=== PATIENT | male | born 1955 | race Caucasian/White ===

== ENCOUNTER → 2016-12-01 | Outpatient (CLI) | payer OTHER ==
[~2016-12-01] MED LIST: ACET-1311 PO; ADVIN25050 INH; ALBUAER INH; ALBUPOW25 NEB; ASPI81TA28 PO; ATOR10TA82 PO; ENOX60IN SQ; FAMO1TAB47; FAMO20TA11 PO; FAMO40TA6 PO; LEVO100T7 PO; LISI-725 PO; LSN20 PO; METO25TA56 PO; OXGN; TPRSR/25 PO; VNTHFA/IN INH; WARF2.5T8 PO; [UNRECOGNIZED DRUG - REMARK]
--- NOTE | 2016-12-01 09:17 | DIAGNOSTIC IMAGING REPORT ---
CT OF THE CHEST WITHOUT IV CONTRAST CLINICAL HISTORY: Acid reflux. Head and neck cancer. COMPARISON STUDY: PET/CT October 09, [address] September 23, 2014. CT DOSE: 211.70 mGycm TECHNIQUE: Axial images of the chest were obtained without IV contrast. Images were reviewed in the axial, sagittal, and coronal planes. IV contrast was not administered for this examination. FINDINGS: No enlarged axillary, mediastinal or hilar lymph nodes are present. There are median sternotomy wires and prosthetic aortic and mitral valves. The heart is mildly enlarged. There is no pericardial effusion. No pneumothorax or pleural effusion is identified. Central airways are patent. Mild to moderate emphysema is noted. There are secretions within the trachea and left mainstem bronchus. Innumerable tree-in-bud nodules throughout the lungs have progressed since exam of September 23, 2014. There is a 1.8 cm nodular airspace opacity within the right upper lobe. There is no cavitation. The bony thorax and upper abdomen are unremarkable on this unenhanced exam. IMPRESSION: 1. Progression of innumerable tree-in-bud nodules with scattered airspace opacities since exam of September 23, 2014, including a 1.8 cm nodular focus within the right upper lobe. The findings favor an infectious process such as an atypical mycobacterial infection. A follow-up chest CT in 6 months is recommended to exclude the unlikely possibility of an underlying neoplasm. 2. No cavitation. 3. Mild to moderate emphysema. 4. Mild secretions within the trachea and left mainstem bronchus. Electronically signed by: Alfredo Lagunas M.D. 12/01/2016 9:15 AM Dictated Date/Time: 12/01/2016 9:00 AM
== END | disposition home or self-care (01) ==
LOC: C.CTS 08:24
PROVIDERS: ATTEND Physician Assistant
DX: K21.9 Gastro-esophageal reflux disease without esophagitis (principal); R91.8 Other nonspecific abnormal finding of lung field

== ENCOUNTER → 2017-01-03 | Outpatient (CLI) | payer OTHER ==
--- NOTE | 2017-01-05 10:10 | PULMONARY FUNCTION TEST ---
Reading is based off ATS criteria. SPIROMETRY: Severe obstructive ventilatory disease with an FEV1 of 42%, no significant reversibility. LUNG VOLUMES: Significant increase in the residual volume, functional residual capacity noting hyperinflation. DIFFUSION CAPACITY: Moderately decreased. IMPRESSION: Notable for severe obstructive ventilatory disease.
== END | disposition home or self-care (01) ==
LOC: C.RC 09:12
PROVIDERS: ATTEND Physician Assistant
DX: J44.9 Chronic obstructive pulmonary disease, unspecified (principal)

== ENCOUNTER → 2017-02-02 | Day surgery (SDC) | payer OTHER ==
[2017-02-02] VITALS (15 sets, daily range): BP systolic 91–151; BP diastolic 50–85; PULSE 62–90; TEMP 36.7–37.2; O2SAT 86–100; Ht 167.6 cm; Wt 52.0 kg
[~2017-02-02] VITALS: Ht 167.6 cm; Wt 52.0 kg
[~2017-02-02] MED LIST changes: +FENTANYL CITRATE 100 MCG 2 ML CARP IV ONE; +MIDAZOLAM HCL 1 MG/ML 2ML VIAL IV ONE; +NURSING VERBAL MED ORDER ONE
[2017-02-02 09:37] LABS: PARTIAL THROMBOPLASTIN RATIO 1.2; PROTHROMBIN TIME (PATIENT) 10.9 SECONDS (9.0-12.0)
--- NOTE | 2017-02-02 11:07 | Procedure Note ---
Pre-Mod Sedation Assessment General Date of Moderate Sedation: Feb 02, 2017. Vital Signs: Vital Signs Past 12 Hours Date Time Temp Pulse Resp B/P (MAP) Pulse Ox O2 Delivery O2 Flow Rate FiO2 02/02/17 10:59 36.9 64 24 136/67 86 Room Air 02/02/17 10:50 64 18 143/77 97 Mask 6.0 02/02/17 09:14 36.9 64 24 136/67 (90) 86 Room Air Review Cardiovascular: regular rate, rhythm, no edema, no gallop, no JVD, no murmur, normal peripheral pulses Abdomen: normal bowel sounds, non tender, soft, no organomegaly, no pulsatile mass, normal rectal exam, occult blood negative Lungs: + rhonchi Airway Class: II Pre-Sedation Airway Assessment Oral Cavity: Dental Abnormalities Able to Visualize Vocal Cords: Yes Short Thick Neck: No Hx of Sleep Apnea: No Smoking Status: Former Smoker Mallampati Classification: Class III Procedure Planning Yes Notes The planned sedation has been discussed with the patient and consent obtained. I have identified the patient, determined the appropriateness of sedation and have assessed the patient immediately prior to the procedure. All medicine(s) and interventions are by my order.
--- NOTE | 2017-02-02 11:07 | History & Physical Bridge Note ---
H&P Re-Evaluation Bridge Note: I have examined the patient, reviewed the History & Physical and in the interval since the performance of the History & Physical I have noted the following changes of clinical significance: No changes noted
--- NOTE | 2017-02-02 11:33 | Procedure Note ---
Post-Moderate Sedation Plan General Date of Moderate Sedation Feb 02, 2017. Vital Signs: Vital Signs Past 12 Hours Date Time Temp Pulse Resp B/P (MAP) Pulse Ox O2 Delivery O2 Flow Rate FiO2 02/02/17 11:30 82 20 146/85 97 Mask 6.0 02/02/17 11:25 90 18 146/81 94 Mask 6.0 02/02/17 11:20 82 18 129/78 95 Mask 6.0 02/02/17 11:15 76 16 122/60 98 Mask 6.0 02/02/17 11:10 69 18 149/83 100 Mask 6.0 02/02/17 11:05 68 18 151/71 100 Mask 6.0 02/02/17 10:59 36.9 64 24 136/67 86 Room Air 02/02/17 10:50 64 18 143/77 97 Mask 6.0 02/02/17 09:14 36.9 64 24 136/67 (90) 86 Room Air Review - Discharge Plan Post Moderate Sedation Plan: On clinical assessment, the patient appears to have tolerated the conscious sedation without complications. Patient is recovering as anticipated. Patient will continue to be monitored by nursing and may be discharged when conscious sedation discharge criteria are met.
--- NOTE | 2017-02-02 11:37 | Bronchoscopy Procedure Note ---
Bronchoscopy Procedure Note Procedure: Bronchoscopy, conscious sedation, BAL RML Consent: Obtained through the patient placed into the chart Pre-procedural diagnosis: chronic aspiration Post-procedural diagnosis: chronic aspiration Start time: 1107 End time: 1126 Total time: 19 minutes Analgesia: 2% liquid lidocaine: Via nebulizer 4% gel lidocaine: Via right naris 2% liquid lidocaine: Via bronchoscopy Sedation: Versed IV: 3 mg Fentanyl IV: 75 g Procedure: The Olympus video bronchoscope was used for this procedure and passed down through the right naris Right naris/posterior naris/posterior oropharynx: Anatomically within normal limits Glottis: surgically resected Vocal cords: paradoxical monition Subglottis/trachea/Mary: notable destruction of the 3-5 anterior portion of tracheal rings s/p tracheostomy Right bronchial tree: Right mainstem bronchus: Anatomically within normal limits Right upper lobe: Anatomically within normal limits Bronchus intermedius: Anatomically within normal limits Right middle lobe: Anatomically within normal limits Right lower lobe: Anatomically within normal limits Findings: diffuse mucus secretions especially in the lower lobe Left bronchial tree: Left mainstem bronchus: Anatomically within normal limits Left upper lobe: Anatomically within normal limits Lingula: Anatomically within normal limits Left lower lobe: Anatomically within normal limits Findings: diffuse mucus secretions especially in the lower lobe Bronchial alveolar lavage: RML 80cc with 40cc returned EBL: None Complications: None Follow-up: In the [facility] with provider Amalia Rich
--- NOTE | 2017-02-02 11:40 | Discharge Instructions ---
Discharge Instructions Date of Service Feb 02, 2017. Admission Reason for Admission: Pleural Effusion Discharge Discharge Diagnosis / Problem: Chronic Aspiration Discharge Goals Goal(s): Improve function, Therapeutic intervention Activity Recommendations Activity Limitations: resume your previous activity . Instructions / Follow-Up Instructions / Follow-Up Follow Up in the [facility] with Provider Amalia Rich Current Hospital Diet Patient's current hospital diet: Discharge Diet Recommended Diet: Regular Diet Procedures Procedures Performed: Bornchosocpcy with bronchial lavage of the right middle lobe and consecious sedation Pending Studies Studies pending at discharge: no Medical Emergencies . Who to Call and When: Medical Emergencies: If at any time you feel your situation is an emergency, please call 911 immediately. . Non-Emergent Contact Non-Emergency issues call your: Hook Puller Call Non-Emergent contact if: temperature is above 101.5 . . "Provider Documentation" section prepared by Corky Oviedo. . VTE Core Measure Inpt VTE Proph given/why not?: Treatment not indicated
== END | disposition home or self-care (01) ==
LOC: C.ACU 08:39
PROVIDERS: ATTEND Physician Assistant
DX: T17.908A Unspecified foreign body in respiratory tract, part unspecified causing other injury, initial encounter (principal); J44.9 Chronic obstructive pulmonary disease, unspecified; I10 Essential (primary) hypertension; E03.9 Hypothyroidism, unspecified; I34.0 Nonrheumatic mitral (valve) insufficiency; Z95.2 Presence of prosthetic heart valve; Z93.0 Tracheostomy status; Z85.21 Personal history of malignant neoplasm of larynx; Z87.891 Personal history of nicotine dependence; K21.9 Gastro-esophageal reflux disease without esophagitis; J38.00 Paralysis of vocal cords and larynx, unspecified; Z79.82 Long term (current) use of aspirin; Z79.899 Other long term (current) drug therapy; X58.XXXA Exposure to other specified factors, initial encounter

== ENCOUNTER → 2017-02-09 | Outpatient (CLI) | payer OTHER ==
[~2017-02-09] MED LIST changes: -FAMO20TA11 PO; -FENTANYL CITRATE 100 MCG 2 ML CARP IV ONE; -LSN20 PO; -METO25TA56 PO; -MIDAZOLAM HCL 1 MG/ML 2ML VIAL IV ONE; -NURSING VERBAL MED ORDER ONE; -VNTHFA/IN INH
--- NOTE | 2017-02-09 13:12 | DIAGNOSTIC IMAGING REPORT ---
CHEST 2 VIEWS ROUTINE CLINICAL HISTORY: J44.9 Chronic obstructive pulmonary [id number] scar COMPARISON STUDY: 12/01/2016 FINDINGS: Somewhat difficult study to interpret as comparison to the prior CT examination is somewhat problematic. Diffuse interstitial and/or reticular nodular-type changes throughout both hemithoraces persists. Base of the survey CT evaluation these appear similar. Prior median sternotomy and valve replacements are again noted. Chronic apical pleural thickening is again noted. IMPRESSION: Unchanging parenchymal interstitial and/or reticular nodular changes throughout both hemithoraces. Follow-up CT study in 3-6 months is again suggested. Electronically signed by: Galen Huerta M.D. 02/09/2017 1:11 PM Dictated Date/Time: 02/09/2017 1:07 PM
[2017-02-09 13:14] LABS: BASO % 0.5 %; BASO ABS # 0.04 K/uL (0-0.2); COMPLETE YES; EOS % 1.4 %; HEMATOCRIT 42.6 % (42-52); IG% 0.1 %; LYMPH % 34.2 %; LYMPH ABS # 3.01 K/uL (1.2-3.4); MEAN CELL VOLUME 94.9 fL (80-100); MEAN CORPUSCULAR HEMOGLOBIN 29.8 pg (25-34); MEAN CORPUSCULAR HGB CONC 31.5 g/dl (32-36); MEAN PLATELET VOLUME 9.6 fL (7.4-10.4); MONO % 7.3 %; NEUT % 56.5 %; PLATELET COUNT 292 K/uL (130-400); RED BLOOD COUNT 4.49 M/uL (4.7-6.1); WHITE BLOOD COUNT 8.81 K/uL (4.8-10.8)
[2017-02-09 14:34] LABS: BLOOD UREA NITROGEN 8 mg/dl (7-18); BUN/CREATININE RATIO 13.7 (10-20); CREATININE 0.61 mg/dl (0.60-1.40)
[2017-02-15 16:28] LABS: QUANTIF TB AG-NIL 0.03 IU/ML; QUANTIFERON NIL 0.06 IU/ML
== END | disposition home or self-care (01) ==
LOC: C.RAD 12:32
PROVIDERS: ATTEND Physician Assistant
DX: J44.9 Chronic obstructive pulmonary disease, unspecified (principal); T17.908A Unspecified foreign body in respiratory tract, part unspecified causing other injury, initial encounter; X58.XXXA Exposure to other specified factors, initial encounter

== ENCOUNTER 2017-04-16 20:20 | Emergency (ER) | payer OTHER ==
[~2017-04-16] VITALS: Ht 167.6 cm; Wt 52.1 kg
[~2017-04-16 20:20] MED LIST changes: -ATOR10TA82 PO; +ATOR10TA88 PO; -FAMO1TAB47; -TPRSR/25 PO; -[UNRECOGNIZED DRUG - REMARK]
[2017-04-16 20:24] VITALS: TEMP 37; Ht 167.6 cm; Wt 52.1 kg
[2017-04-16] MEDS ORDERED: LIDOCAINE/EPINEPHRINE 1% 20 ML VIAL ONE (21:09)
--- NOTE | 2017-04-16 21:10 | EMERGENCY ROOM VISIT NOTE ---
History Report prepared by Wilson: Vilma Walters Under the Supervision of: Dr. Yonathan Russell D.O. First contact with patient: 21:02 Chief Complaint: BLEEDING Stated Complaint: ON BLOOD THINNERS,BLEEDING FOR 4 HOURS Nursing Triage Summary: pt blew his nose and then noticed bleeding on outside of nose around 1530 and it has not stopped bleeding since, is on blood thinners and was here before for bleeding like this. states had inr checked and it was normal History of Present Illness The patient is a 61 year old male who presents to the Emergency Room with complaints of a cut on the outside of his nose with constant bleeding starting this afternoon. The patient is on blood thinners for a valve replacement and normally uses oxygen. Pt denies headache, change in vision, fevers, chest pain, shortness of breath, nausea, vomiting, diarrhea, and pain with urination. Source of History: patient Onset: this afternoon Position: nose (outside) Timing: constant Note: Pt denies headache, change in vision, fevers, chest pain, shortness of breath, nausea, vomiting, diarrhea, pain with urination, and melena. Review of Systems See HPI for pertinent positives & negatives. A total of 10 systems reviewed and were otherwise negative. Past Medical & Surgical Medical Problems: (1) Allergic rhinitis (2) Cancer (3) COPD, moderate (4) GERD (gastroesophageal reflux disease) (5) History of throat cancer (6) HTN (hypertension) (7) Hyperlipidemia (8) Hypothyroidism Surgical Problems: (1) H/O aortic valve repair (2) H/O mitral valve repair (3) H/O neck surgery Family History No pertinent family history no pertinent family history stated Social History Smoking Status: Never Smoker Marital Status: in relationship Housing Status: lives with significant other Occupation Status: disabled Current/Historical Medications Scheduled Aspirin (Aspirin Ec), 81 MG PO DAILY Atorvastatin (Lipitor), 10 MG PO DAILY Fluticasone Prop/Salmeterol (Advair Diskus 250-50 Mcg/Dose), 1 PUFF INH DAILY Home O2 Therapy (Oxygen), 2 LITERS NA HS Levothyroxine Sodium (Levothyroxine Sodium), 100 MCG PO DAILY Lisinopril (Zestril), 20 MG PO DAILY Metoprolol Succinate (Metoprolol Succinate ER), 25 MG PO DAILY Warfarin Sod (Jantoven), 2.5 MG PO 2XWK Warfarin Sod (Jantoven), 5 MG PO 4XWK Scheduled PRN Acetaminophen (Tylenol), 650 MG PO Q8 PRN for Pain Albuterol Sulfate (Albuterol Sulfate), 1 INHA NEB DIRECTED PRN for SOB/ Wheezing Albuterol Sulfate (Proventil Hfa), 2 PUFF INH UD PRN for SORE THROAT Miscellaneous Medications Famotidine (Famotidine) Allergies Coded Allergies: Penicillins (Verified Allergy, Severe, FACE SWELLS, 04/16/17) Sulfa Drugs (Verified Allergy, Unknown, ITCH, 04/16/17) Physical Exam Vital Signs Date Time Temp Pulse Resp B/P (MAP) Pulse Ox O2 Delivery O2 Flow Rate FiO2 04/16/17 21:55 74 18 198/80 92 04/16/17 20:29 89 Nasal Cannula 3.0 04/16/17 20:24 37.0 72 18 217/82 83 Room Air Physical Exam GENERAL: sitting up in bed, chronically ill appearing EYE EXAM: normal conjunctiva. OROPHARYNX: no exudate, no erythema, lips, buccal mucosa, and tongue normal and mucous membranes are moist FACE: lateral of right nostril, small amount of veinous oozing from capillary LUNGS: Clear to auscultation. Normal chest wall mechanics HEART: no murmurs, S1 normal and S2 normal ABDOMEN: abdomen soft, non-tender, normo-active bowel sounds, no masses, no rebound or guarding. UPPER EXTREMITIES: upper extremities are grossly normal. LOWER EXTREMITIES: No pitting edema. NEURO EXAM: Normal sensorium. Medical Decision & Procedures Procedure Dermabond was placed over a bleeding capillary just lateral of the right nostril. ED Course ED COURSE: Vital signs were reviewed and showed hypoxic and hypertensive The patients medical record was reviewed The above diagnostic studies were performed and reviewed. ED treatments and interventions as stated above. 2104: The patient was evaluated in room C8. A complete history and physical examination was performed. 2108: Lidocaine/Epinephrine 20 ml .ROUTE 2133: Upon reevaluation, the patient is resting.I discussed my findings with the patient and he understands and agrees with the treatment plan. Based on the patients age, coexisting illnesses, exam and lab findings the decision to treat as an outpatient was made. The patient remained stable while under my care. The patient appeared well at the time of discharge. Medical Decision Patient is a 61-year-old male on Coumadin for valve replacement that presents the ER for bleeding from a small capillary just lateral of his right nostril. Pressure was held for 5 minutes at a complete stop bleeding. I did cover it with Dermabond. Patient tolerated the procedure well. He was discharged follow -up with PCP. Discussed with Pt concerning signs and symptoms to watch out for. Pt was instructed to follow up with their PCP and discussed with the patient their option to return to the ED at anytime for persistent or worsening symptoms. The appropriate anticipatory guidance and out-patient management, including indications for return to the emergency department, were explained at length to the patient and understood. Medication Reconcilliation Current Medication List: was personally reviewed by me Blood Pressure Screening Patient's blood pressure: Elevated blood pressure Blood pressure disposition: Referred to PCP Impression Primary Impression: Bleeding Additional Impression: HTN (hypertension) Scribe Attestation The scribe's documentation has been prepared under my direction and personally reviewed by me in its entirety. I confirm that the note above accurately reflects all work, treatment, procedures, and medical decision making performed by me. Departure Information Dispostion Home / Self-Care Referrals Kyle Nguyen MD (PCP) Forms HOME CARE DOCUMENTATION FORM, IMPORTANT VISIT INFORMATION Patient Instructions First Aid Bleeding, My Progression Labs Additional Instructions If bleeding recurs please hold pinpoint pressure for 15 minutes without looking. If bleeding does not stop following this please return to the ER. I placed skin glue on your face. Please do not take this off or shower for the next 24 hours. It will gradually wipe off. If you note any surrounding redness or discharge please have this reevaluated as it could become infected. Problem Qualifiers Additional Impression: HTN (hypertension) Hypertension type: unspecified Qualified Codes: I10 - Essential (primary) hypertension
[2017-04-16] MEDS ORDERED: TPRSR/25 PO (21:21)
[2017-04-16] MEDS ORDERED: FAMO1TAB47 (21:21)
[2017-04-16] MEDS ORDERED: ALBUAER INH (21:23)
[2017-04-16 21:55] VITALS: BP 198/80; PULSE 74; O2SAT 92
== END 2017-04-16 21:57 | disposition home or self-care (01) ==
LOC: C.EDB 20:21 → C.EDC 21:57
DX: R04.0 Epistaxis (principal); J44.9 Chronic obstructive pulmonary disease, unspecified; K21.9 Gastro-esophageal reflux disease without esophagitis; I10 Essential (primary) hypertension; E78.5 Hyperlipidemia, unspecified; E03.9 Hypothyroidism, unspecified; Z79.82 Long term (current) use of aspirin; Z79.01 Long term (current) use of anticoagulants

== ENCOUNTER → 2017-05-31 | Outpatient (CLI) | payer OTHER ==
[~2017-05-31] MED LIST changes: -ENOX60IN SQ; +FAMO1TAB47; -FAMO40TA6 PO; +OPTIRAY 320 IV PRN; +TPRSR/25 PO
--- NOTE | 2017-05-31 12:33 | DIAGNOSTIC IMAGING REPORT ---
CHEST CT WITH CONTRAST CT DOSE: 195.40 mGy.cm HISTORY: R91.8 Abnormal chest x-ray with multiple lung nodules R91.8 Abnor TECHNIQUE: Multiaxial CT images of the chest were performed following the intravenous administration of contrast. A dose lowering technique was utilized adhering to the principles of ALARA. COMPARISON: Chest CT 12/01/2016. FINDINGS: There has been interval complete collapse of the right lower lobe. There is partial opacification of the distal trachea, right bronchus intermedius and right lower lobe bronchi with mucoid material. There is is progressive soft tissue abnormality within the right hilar/subcarinal location. This measures up to 2 cm in thickness and partially surrounds but does not significantly narrow the bronchus intermedius. No left hilar lymphadenopathy. Interval development of a small right pleural effusion. Heterogeneous enhancement within the right lobe lower consolidation/atelectasis. The heart is mildly enlarged. The visualized liver, spleen, and adrenal glands are unremarkable. Poststernotomy changes. No pneumothorax. Persistent biapical pleural-parenchymal scarring. Emphysema. Scattered tree-in-bud nodular opacities within the mid to lower lung zones and a few patchy densities within the bilateral lower lobes have improved. The central pulmonary arteries are patent. The thoracic ureter is normal in caliber. Aortic and mitral valve prostheses. IMPRESSION: 1. Interval complete collapse of the right lower lobe. The consolidated/collapsed right lower lobe demonstrates heterogeneous enhancement. There is partial opacification of the distal trachea, right bronchus intermedius, and right lower lobe bronchi with mucoid material. Therefore, this favors mucoid impaction/aspiration. 2. However, there is progressive soft tissue abnormality/lymphadenopathy within the right hilum/subcarinal locations which partially surrounds but does not narrow the bronchus intermedius. This could be reactive to the chronic infectious change. However, neoplastic process is the diagnosis of exclusion. Bronchoscopy is recommended for further evaluation. 3. Scattered tree-in-bud nodular opacities within the mid to lower lung zones have improved. This may related to chronic aspiration. Electronically signed by: Dl Noland M.D. 05/31/2017 12:32 PM Dictated Date/Time: 05/31/2017 12:22 PM
== END | disposition home or self-care (01) ==
LOC: C.CTS 10:29
PROVIDERS: ATTEND Physician Assistant
DX: R91.8 Other nonspecific abnormal finding of lung field (principal)

== ENCOUNTER → 2017-07-05 | Outpatient (CLI) | payer OTHER ==
[~2017-07-05] MED LIST changes: +ATOR10TA82 PO; -ATOR10TA88 PO; -OPTIRAY 320 IV PRN; +[UNRECOGNIZED DRUG - REMARK]
--- NOTE | 2017-07-05 11:49 | DIAGNOSTIC IMAGING REPORT ---
CHEST 2 VIEWS ROUTINE CLINICAL HISTORY: R05 [id number] cough COMPARISON STUDY: 02/09/2017 FINDINGS: Right basilar infiltrate. Mild consolidative change based on the lateral projection. Baseline chronic interstitial change throughout both hemithoraces. Findings of prior median sternotomy and valve replacements are unchanged. Upper lungs are clear. Mild chronic fibrocalcific change pulmonary apices. IMPRESSION: 1. Right lower lobe infiltrate. 2. Chronic change. The above report was generated using voice recognition software. It may contain grammatical, syntax or spelling errors. Electronically signed by: Galen Huerta M.D. 07/05/2017 11:47 AM Dictated Date/Time: 07/05/2017 11:46 AM
== END | disposition home or self-care (01) ==
LOC: C.RAD1850 11:26
PROVIDERS: ATTEND Physician Assistant
DX: R05 Cough (principal); R91.8 Other nonspecific abnormal finding of lung field

== ENCOUNTER → 2017-08-16 | Outpatient (CLI) | payer OTHER ==
--- NOTE | 2017-08-16 12:30 | DIAGNOSTIC IMAGING REPORT ---
CHEST 2 VIEWS ROUTINE CLINICAL HISTORY: Chronic obstructive pulmonary disease. Mucoid impaction. COMPARISON STUDY: Chest CT May 31, 2017 and chest radiograph July 05, 2017. FINDINGS: Note is again made of median sternotomy wires and prosthetic aortic and mitral valves. Cardiomediastinal silhouette is stable. There is persistent right lower lobe airspace opacity with a small right pleural effusion. This is similar to prior exam. Right midlung airspace opacity has developed. Reticulonodular interstitial thickening with the left lung has increased. There is no pneumothorax. IMPRESSION: 1. Increase in reticulonodular interstitial thickening and right midlung airspace opacity since chest radiograph of July 05, 2017 which favors an infectious etiology. 2. Persistent right lower lobe airspace opacity which could reflect atelectasis or pneumonia. Stable small right pleural effusion. Electronically signed by: Alfredo Lagunas M.D. 08/16/2017 12:29 PM Dictated Date/Time: 08/16/2017 12:25 PM
== END | disposition home or self-care (01) ==
LOC: C.RAD1850 12:14
PROVIDERS: ATTEND Physician Assistant
DX: J44.9 Chronic obstructive pulmonary disease, unspecified (principal)

== ENCOUNTER 2017-08-31 15:50 | Inpatient (IN) | payer OTHER ==
[~2017-08-31] VITALS: Ht 167.6 cm; Wt 50.9 kg
[~2017-08-31 15:50] MED LIST changes: -FAMO1TAB47; +FAMO1TAB47 PO
[2017-08-31] MEDS ORDERED: SODIUM CHLORIDE 0.9% 1000ML 500 ML IV ONE (16:40)
[2017-08-31] MEDS ORDERED: ACETAMINOPHEN 325 MG TAB PO ONE (16:45)
[2017-08-31] MEDS ORDERED: LEVALBUTEROL 1.25MG/3ML NEB INH ONE (16:45)
[2017-08-31 16:56] LABS: BASO ABS # 0.01 K/uL (0-0.2); HEMATOCRIT 39.2 % (42-52); HEMOGLOBIN 12.4 g/dL (14.0-18.0); IG# 0.08 K/uL (0.00-0.02); LYMPH % 3.9 %; LYMPH ABS # 0.84 K/uL (1.2-3.4); MEAN CELL VOLUME 98.7 fL (80-100); MEAN CORPUSCULAR HEMOGLOBIN 31.2 pg (25-34); MEAN CORPUSCULAR HGB CONC 31.6 g/dl (32-36); MEAN PLATELET VOLUME 10.2 fL (7.4-10.4); MONO % 5.8 %; MONO ABS # 1.25 K/uL (0.11-0.59); NEUT % 89.9 %; NEUT ABS # 19.25 K/uL (1.4-6.5); PLATELET COUNT 332 K/uL (130-400); RED CELL DISTRIBUTION WIDTH CV 14.1 % (11.5-14.5); RED CELL DISTRIBUTION WIDTH SD 51.2 fL (36.4-46.3); WHITE BLOOD COUNT 21.43 K/uL (4.8-10.8)
--- NOTE | 2017-08-31 17:06 | EMERGENCY ROOM VISIT NOTE ---
History First contact with patient: 16:09 Chief Complaint: RESPIRATORY PROBLEMS Stated Complaint: PNEUMONIA, CONGESTION Nursing Triage Summary: referred by primary for pneumonia History of Present Illness The patient is a 61 year old male who was referred to the emergency room by his doctor due to pneumonia. He was recently treated for pneumonia, and finished his course of levaquin about 1 week ago. He states that 4 days ago, he began experiencing chest pain located on the lower aspect of his anterior ribs. He states this pain is constant, 5/10 in severity, and feels as though he pulled a muscle. He reports the pain is worst with taking a deep breath in, but does not radiate anywhere. He also reports that despite the antibiotics, he remains with a productive cough, without the presence of blood in his sputum. He also reports having felt feverish with chills 4 days ago, but not since then. He is on 2.5L of oxygen via nasal cannula at home overnight, and does not feel short of breath. He denies any trauma to his chest, and also denies prior OH. He reports he has a mechanical valve and is on coumadin for anticoauglation. He denies a past history of PE or DVT and denies recent leg swelling. Review of Systems See HPI for pertinent positives & negatives. A total of 10 systems reviewed and were otherwise negative. Past Medical/Surgical History Medical Problems: (1) Allergic rhinitis (2) Cancer (3) COPD, moderate (4) GERD (gastroesophageal reflux disease) (5) History of throat cancer (6) HTN (hypertension) (7) Hyperlipidemia (8) Hypothyroidism Surgical Problems: (1) H/O aortic valve repair (2) H/O mitral valve repair (3) H/O neck surgery Family History No pertinent family history Social History Smoking Status: Former Smoker Marital Status: in relationship Housing Status: lives with significant other Occupation Status: disabled Current/Historical Medications Scheduled Aspirin (Aspirin Ec), 81 MG PO DAILY Atorvastatin (Lipitor), 10 MG PO DAILY Fluticasone Prop/Salmeterol (Advair Diskus 250-50 Mcg/Dose), 1 PUFF INH DAILY Home O2 Therapy (Oxygen), 2 LITERS NA HS Levothyroxine Sodium (Levothyroxine Sodium), 100 MCG PO DAILY Lisinopril (Zestril), 20 MG PO DAILY Metoprolol Succinate (Metoprolol Succinate ER), 25 MG PO DAILY Warfarin Sod (Jantoven), 2.5 MG PO 2XWK Warfarin Sod (Jantoven), 5 MG PO 4XWK Scheduled PRN Acetaminophen (Tylenol), 650 MG PO Q8 PRN for Pain Albuterol Sulfate (Albuterol Sulfate), 1 INHA NEB DIRECTED PRN for SOB/ Wheezing Albuterol Sulfate (Proventil Hfa), 2 PUFF INH UD PRN for SORE THROAT Miscellaneous Medications Famotidine (Famotidine) [blood thinner it] Physical Exam Vital Signs Date Time Temp Pulse Resp B/P (MAP) Pulse Ox O2 Delivery O2 Flow Rate FiO2 08/31/17 16:40 97 08/31/17 16:19 94 Non-Rebreather 15.0 08/31/17 16:18 85 Nasal Cannula 4.0 08/31/17 16:18 92 Non-Rebreather 15.0 08/31/17 16:01 39.4 107 32 111/61 90 Nasal Cannula 2.5 Physical Exam General: Appears cachetic. HEENT: Head - normocephalic and atraumatic. Nose - moist nasal mucosa without discharge. Mouth - moist buccal mucosa. Oropharynx is nonerythematous and there is no tonsillar exudate or edema noted. Neck: Supple; no JVD, nuchal rigidity, cervical lymphadenopathy, or auscultated bruits. Heart: Regular rate and rhythm. There is a normal S1 and S2 with no murmurs, clicks, or gallops appreciated. Lungs: Decreased breath sounds throughout lung sandoval with diminished breath sounds at left lung base. Abdomen: Soft, completely nontender, nondistended, with good bowel sounds. There are no palpable pulsatile masses or hepatosplenomegaly. There is no guarding, rigidity, or rebound noted. Extremities: No evidence of cyanosis, clubbing, or edema. There are easily palpable peripheral pulses. Neuro:The patient is awake and alert, oriented to day, time, and place. Medical Decision & Procedures ER Provider Diagnostic Interpretation: CHEST ONE VIEW PORTABLE CLINICAL HISTORY: Sepsis COMPARISON STUDY: 08/16/2017 FINDINGS: There are postsurgical changes of a midline sternotomy and by valvular replacement. The heart is mildly enlarged. There are small bilateral pleural effusions. There are persistent bilateral airspace opacities. The findings likely represent pneumonia superimposed on chronic lung disease, although asymmetric pulmonary edema superimposed on chronic lung disease could appear similar.[ IMPRESSION: Persistent bilateral airspace opacities superimposed on chronic lung disease. While likely representing a multifocal pneumonia, asymmetric pulmonary edema could appear similar. Laboratory Results 08/31/17 16:20 Red Blood Count 3.97, Mean Corpuscular Volume 98.7, Mean Corpuscular Hemoglobin 31.2, Mean Corpuscular Hemoglobin Concent 31.6, Mean Platelet Volume 10.2, Neutrophils (%) (Auto) 89.9, Lymphocytes (%) (Auto) 3.9, Monocytes (%) (Auto) 5.8, Eosinophils (%) (Auto) 0.0, Basophils (%) (Auto) 0.0, Neutrophils # (Auto) 19.25, Lymphocytes # (Auto) 0.84, Monocytes # (Auto) 1.25, Eosinophils # (Auto) 0.00, Basophils # (Auto) 0.01 08/31/17 16:20 Test 08/31/17 16:20 08/31/17 17:21 White Blood Count 21.43 K/uL (4.8-10.8) Red Blood Count 3.97 M/uL (4.7-6.1) Hemoglobin 12.4 g/dL (14.0-18.0) Hematocrit 39.2 % (42-52) Mean Corpuscular Volume 98.7 fL (80-100) Mean Corpuscular Hemoglobin 31.2 pg (25-34) Mean Corpuscular Hemoglobin Concent 31.6 g/dl (32-36) Platelet Count 332 K/uL (130-400) Mean Platelet Volume 10.2 fL (7.4-10.4) Neutrophils (%) (Auto) 89.9 % Lymphocytes (%) (Auto) 3.9 % Monocytes (%) (Auto) 5.8 % Eosinophils (%) (Auto) 0.0 % Basophils (%) (Auto) 0.0 % Neutrophils # (Auto) 19.25 K/uL (1.4-6.5) Lymphocytes # (Auto) 0.84 K/uL (1.2-3.4) Monocytes # (Auto) 1.25 K/uL (0.11-0.59) Eosinophils # (Auto) 0.00 K/uL (0-0.5) Basophils # (Auto) 0.01 K/uL (0-0.2) RDW Standard Deviation 51.2 fL (36.4-46.3) RDW Coefficient of Variation 14.1 % (11.5-14.5) Immature Granulocyte % (Auto) 0.4 % Immature Granulocyte # (Auto) 0.08 K/uL (0.00-0.02) Prothrombin Time 21.8 SECONDS (9.0-12.0) Prothromb Time International Ratio 2.1 (0.9-1.1) Activated Partial Thromboplast Time 52.0 SECONDS (21.0-31.0) Partial Thromboplastin Ratio 2.0 Anion Gap 6.0 mmol/L (3-11) Est Creatinine Clear Calc Drug Dose 77.7 ml/min Estimated GFR () 115.7 Estimated GFR (Non- 99.9 BUN/Creatinine Ratio 22.0 (10-20) Calcium Level 9.1 mg/dl (8.5-10.1) Total Bilirubin 1.2 mg/dl (0.2-1) Aspartate Amino Transf (AST/SGOT) 28 U/L (15-37) Alanine Aminotransferase (ALT/SGPT) 25 U/L (12-78) Alkaline Phosphatase 84 U/L (45-117) Total Protein 7.8 gm/dl (6.4-8.2) Albumin 3.0 gm/dl (3.4-5.0) Globulin 4.8 gm/dl (2.5-4.0) Albumin/Globulin Ratio 0.6 (0.9-2) ED Course 16:10: The patient was evaluated in room A11. A complete history and physical exam was performed. 16:30: The case was discussed with Dr. Myles. 16:35: The patient was seen with Dr. Myles. 16:40: Ordered 500mls NS bolus, Oral Acetaminophen 650mg, and Xopenex nebs 17:05: The patient was reevaluated. He was resting comfortably in bed and reports no new complaints at this time. 17:30: The patient was reassessed. He states his penicillin allergy results in hives, and has never caused an anaphylactic reaction. Ordered 2g IV cefepime. 17:54: The case was discussed with FLOYD Sandoval who will evaluate him for admission. 17:58: Patient was reassessed. BP has improved to 126/62. Medical Decision Etiologies such as pneumonia, COPD, reactive airway disease, CHF, cardiac ischemia, pulmonary embolism, pneumothorax, musculoskeletal, infections, as well as others were entertained. Mr. Orantes is a 61 year old gentleman with a past medical history of COPD who failed outpatient management of his pneumonia. He was hypoxic on arrival and initially required 15L via oximask to increase his oxygen saturations to >90%. Blood cultures were drawn and are pending. His electrolytes are within normal limits. His chest x-ray showed bilateral opacities, he was febrile at 39.4 degrees and WCC was elevated at 21.4. He was given 2g of IV cefepime in the emergency department as well as xopenex nebulizers. He will be evaluated for admission as he failed outpatient management of his pneumonia. Impression Primary Impression: Bilateral pneumonia Departure Information Dispostion Being Evaluated By Hospitalist Referrals Kyle Nguyen MD (PCP) Patient Instructions My [facility] Resident Tracking Resident Involvement: Resident Care Provided Care Provided: Adult ED Problem Qualifiers Primary Impression: Bilateral pneumonia Pneumonia type: due to unspecified organism
[2017-08-31 17:18] LABS: INR 2.1 (0.9-1.1)
--- NOTE | 2017-08-31 17:18 | DIAGNOSTIC IMAGING REPORT ---
CHEST ONE VIEW PORTABLE CLINICAL HISTORY: Sepsis COMPARISON STUDY: 08/16/2017 FINDINGS: There are postsurgical changes of a midline sternotomy and by valvular replacement. The heart is mildly enlarged. There are small bilateral pleural effusions. There are persistent bilateral airspace opacities. The findings likely represent pneumonia superimposed on chronic lung disease, although asymmetric pulmonary edema superimposed on chronic lung disease could appear similar.[ IMPRESSION: Persistent bilateral airspace opacities superimposed on chronic lung disease. While likely representing a multifocal pneumonia, asymmetric pulmonary edema could appear similar. Electronically signed by: Quinton Booth M.D. 08/31/2017 5:16 PM Dictated Date/Time: 08/31/2017 5:14 PM
[2017-08-31 17:21] LABS: CALCIUM 9.1 mg/dl (8.5-10.1); CREATININE 0.76 mg/dl (0.60-1.40); POTASSIUM 4.1 mmol/L (3.5-5.1)
[2017-08-31 17:24] LABS: TOTAL PROTEIN 7.8 gm/dl (6.4-8.2)
[2017-08-31] MEDS ORDERED: CEFEPIME IV 2,000 MG in SYRINGE 7.5 ML IV SCH (17:32)
[2017-08-31] MEDS ORDERED: CEFEPIME IV 2,000 MG in DEXTROSE 5% 100ML 100 ML IV STA (17:32)
[2017-08-31] MEDS ORDERED: ALBUT/IPRATROP 3MG/0.5MG NEB 3 ML VIAL ONE (17:55)
[2017-08-31 18:02] LABS: INFLUENZA B ANTIGEN Neg for Influ B (NEG)
[2017-08-31 18:47] LABS: INFLUENZA A PCR Neg for Influ A (NEG); INFLUENZA B PCR Neg for Influ B (NEG)
[2017-08-31] MEDS ORDERED: SODIUM CHLORIDE 0.9% 500ML 500 ML IV STA (19:03)
--- NOTE | 2017-08-31 19:13 | EMERGENCY ROOM VISIT NOTE ---
History Report prepared by Wilson: Prasanna Bangura Under the Supervision of: Dr. Corky Myles M.D. First contact with patient: 16:09 Chief Complaint: RESPIRATORY PROBLEMS Stated Complaint: PNEUMONIA, CONGESTION Nursing Triage Summary: referred by primary for pneumonia History of Present Illness The patient is a 61 year old male who presents to the Emergency Room with complaints of constant, bilateral, lower chest pain beginning 4 days ago. The patient states he was evaluated on the for pneumonia and given Levaquin which he finished 5 days ago. He reports four days ago he experienced fevers, chills, and bilateral lower chest pain. The patient notes his chest pain worsens with deep breathing. He reports he tried taking Tylenol for his pain, but it did not help. The patient notes he did not take Tylenol today. He states he also developed a productive cough that produces a creamy colored sputum without blood. The patient reports he is on oxygen at night, and he is not short of breath when he is off oxygen. He notes he has a history of COPD and a mechanical valve that requires him to be on Coumadin. The patient denies trauma to the ribs, and a history of PEs, DVTs, and MIs. He states he has a history of Laryngeal cancer and has not had recent chemotherapy. The nurse states the patient's O2Sat dropped to [address] to [address] room. Source of History: patient Onset: four days ago Position: chest (bilateral lower) Timing: constant Modifying Factors (Worsening): breathing (deep) Associated Symptoms: + fevers, + chills, + cough (creamy colored without blood), No SOB (when off oxygen) Note: Denies: trauma to the ribs Review of Systems See HPI for pertinent positives & negatives. A total of 10 systems reviewed and were otherwise negative. Past Medical & Surgical Medical Problems: (1) Allergic rhinitis (2) Cancer (3) COPD, moderate (4) GERD (gastroesophageal reflux disease) (5) History of throat cancer (6) HTN (hypertension) (7) Hyperlipidemia (8) Hypothyroidism Surgical Problems: (1) H/O aortic valve repair (2) H/O mitral valve repair (3) H/O neck surgery Family History No pertinent family history Social History Smoking Status: Former Smoker Marital Status: in relationship Housing Status: lives with significant other Occupation Status: disabled Current/Historical Medications Scheduled Aspirin (Aspirin Ec), 81 MG PO DAILY Atorvastatin (Lipitor), 10 MG PO DAILY Famotidine (Famotidine), 20 MG PO QAM Fluticasone Prop/Salmeterol (Advair Diskus 250-50 Mcg/Dose), 1 PUFF INH DAILY Home O2 Therapy (Oxygen), 2 LITERS NA HS Levothyroxine Sodium (Levothyroxine Sodium), 100 MCG PO DAILY Lisinopril (Zestril), 20 MG PO DAILY Metoprolol Succinate (Metoprolol Succinate ER), 25 MG PO DAILY Warfarin Sod (Jantoven), 2.5 MG PO WK Warfarin Sod (Jantoven), 5 MG PO 4XWK Scheduled PRN Acetaminophen (Tylenol), 650 MG PO Q8 PRN for Pain Albuterol Sulfate (Albuterol Sulfate), 1 INHA NEB DIRECTED PRN for SOB/ Wheezing Albuterol Sulfate (Proventil Hfa), 2 PUFF INH UD PRN for SORE THROAT Allergies Coded Allergies: Penicillins (Verified Allergy, Severe, FACE SWELLS, 08/31/17) Sulfa Drugs (Verified Allergy, Unknown, ITCH, 08/31/17) Physical Exam Vital Signs Date Time Temp Pulse Resp B/P (MAP) Pulse Ox O2 Delivery O2 Flow Rate FiO2 08/31/17 17:58 92 96/61 91 Nebulizer 10.0 08/31/17 16:40 97 08/31/17 16:19 94 Non-Rebreather 15.0 08/31/17 16:18 85 Nasal Cannula 4.0 08/31/17 16:18 92 Non-Rebreather 15.0 08/31/17 16:01 39.4 107 32 111/61 90 Nasal Cannula 2.5 Physical Exam Constitutional: Vital signs reviewed. Cachectic. Eyes: Pupils are equal round reactive to light. Conjunctiva are noninjected. ENT: Pharynx is clear without erythema or exudate. Mucous membranes are moist. Neck supple without meningeal signs. Respiratory: Scattered rhonchi. Breath sounds are equal bilaterally. Cardiovascular: Regular rate and rhythm. No rubs or gallops. GI: Soft, nondistended and nontender. Bowel sounds are present. Musculoskeletal: No peripheral edema. No lower extremity tenderness. Integumentary: No cyanosis. Neurological: The patient is awake and alert. No focal deficits. Psychiatric: Normal affect. Medical Decision & Procedures ER Provider Diagnostic Interpretation: X-ray results as stated below per interpretation by me and the radiologist: CHEST ONE VIEW PORTABLE CLINICAL HISTORY: Sepsis COMPARISON STUDY: 08/16/2017 FINDINGS: There are postsurgical changes of a midline sternotomy and by valvular replacement. The heart is mildly enlarged. There are small bilateral pleural effusions. There are persistent bilateral airspace opacities. The findings likely represent pneumonia superimposed on chronic lung disease, although asymmetric pulmonary edema superimposed on chronic lung disease could appear similar. IMPRESSION: Persistent bilateral airspace opacities superimposed on chronic lung disease. While likely representing a multifocal pneumonia, asymmetric pulmonary edema could appear similar. Electronically signed by: Quinton Booth M.D. 08/31/2017 5:16 PM Dictated Date/Time: 08/31/2017 5:14 PM Laboratory Results 08/31/17 16:20 Red Blood Count 3.97, Mean Corpuscular Volume 98.7, Mean Corpuscular Hemoglobin 31.2, Mean Corpuscular Hemoglobin Concent 31.6, Mean Platelet Volume 10.2, Neutrophils (%) (Auto) 89.9, Lymphocytes (%) (Auto) 3.9, Monocytes (%) (Auto) 5.8, Eosinophils (%) (Auto) 0.0, Basophils (%) (Auto) 0.0, Neutrophils # (Auto) 19.25, Lymphocytes # (Auto) 0.84, Monocytes # (Auto) 1.25, Eosinophils # (Auto) 0.00, Basophils # (Auto) 0.01 08/31/17 16:20 Test 08/31/17 16:20 08/31/17 17:21 08/31/17 18:39 08/31/17 18:51 White Blood Count 21.43 K/uL (4.8-10.8) Red Blood Count 3.97 M/uL (4.7-6.1) Hemoglobin 12.4 g/dL (14.0-18.0) Hematocrit 39.2 % (42-52) Mean Corpuscular Volume 98.7 fL (80-100) Mean Corpuscular Hemoglobin 31.2 pg (25-34) Mean Corpuscular Hemoglobin Concent 31.6 g/dl (32-36) Platelet Count 332 K/uL (130-400) Mean Platelet Volume 10.2 fL (7.4-10.4) Neutrophils (%) (Auto) 89.9 % Lymphocytes (%) (Auto) 3.9 % Monocytes (%) (Auto) 5.8 % Eosinophils (%) (Auto) 0.0 % Basophils (%) (Auto) 0.0 % Neutrophils # (Auto) 19.25 K/uL (1.4-6.5) Lymphocytes # (Auto) 0.84 K/uL (1.2-3.4) Monocytes # (Auto) 1.25 K/uL (0.11-0.59) Eosinophils # (Auto) 0.00 K/uL (0-0.5) Basophils # (Auto) 0.01 K/uL (0-0.2) RDW Standard Deviation 51.2 fL (36.4-46.3) RDW Coefficient of Variation 14.1 % (11.5-14.5) Immature Granulocyte % (Auto) 0.4 % Immature Granulocyte # (Auto) 0.08 K/uL (0.00-0.02) Prothrombin Time 21.8 SECONDS (9.0-12.0) Prothromb Time International Ratio 2.1 (0.9-1.1) Activated Partial Thromboplast Time 52.0 SECONDS (21.0-31.0) Partial Thromboplastin Ratio 2.0 Anion Gap 6.0 mmol/L (3-11) Est Creatinine Clear Calc Drug Dose 77.7 ml/min Estimated GFR () 115.7 Estimated GFR (Non- 99.9 BUN/Creatinine Ratio 22.0 (10-20) Calcium Level 9.1 mg/dl (8.5-10.1) Total Bilirubin 1.2 mg/dl (0.2-1) Aspartate Amino Transf (AST/SGOT) 28 U/L (15-37) Alanine Aminotransferase (ALT/SGPT) 25 U/L (12-78) Alkaline Phosphatase 84 U/L (45-117) Total Protein 7.8 gm/dl (6.4-8.2) Albumin 3.0 gm/dl (3.4-5.0) Globulin 4.8 gm/dl (2.5-4.0) Albumin/Globulin Ratio 0.6 (0.9-2) Influenza Type A (RT-PCR) Neg for Influ A (NEG) Influenza Type A Antigen Neg for Influ A (NEG) Influenza Type B Antigen Neg for Influ B (NEG) Influenza Type B (RT-PCR) Neg for Influ B (NEG) Laboratory results as reviewed by me. Medications Administered Medications (Trade) Dose Ordered Sig/Tony Route Start Time Stop Time Status Last Admin Dose Admin Sodium Chloride 500 ml @ 999 mls/hr Q31M ONCE IV 08/31/17 16:40 08/31/17 17:10 DC 08/31/17 16:40 999 MLS/HR Acetaminophen (Tylenol Tab) 650 mg NOW ONCE PO 08/31/17 16:45 08/31/17 16:46 DC 08/31/17 18:51 650 MG Levalbuterol (Xopenex 1.25MG/ 3ML Neb) 1.25 mg ONE ONCE INH 08/31/17 16:45 08/31/17 16:46 DC 08/31/17 17:53 1.25 MG Albuterol/ Ipratropium (Duoneb) 3 ml STK-MED ONCE .ROUTE 08/31/17 17:55 08/31/17 17:56 DC 08/31/17 17:53 3 ML Cefepime HCl 2000 mg/Syringe 20 ml @ 5 mls/min TODAY@1732 IV 08/31/17 17:32 08/31/17 18:15 DC 08/31/17 18:51 5 MLS/MIN ECG Indication: SOB/dyspnea Rate (beats per minute): 96 Rhythm: normal sinus Findings: no ectopy, other (Limited interpretation due to motion artifact. No ST elevation.) ED Course 1612: The patient was evaluated in room A11A by the resident under my supervision. A complete history and physical exam was performed. 1621: The patient was evaluated in room A11A by me. A complete history and physical exam was performed. 1640: Ordered Sodium Chloride 500 ml @ 999 mls/hr IV 1645: Ordered Levalbuterol 1.25mg INH, Acetaminophen 650mg PO 1732: Ordered Cefepime HCl 2000 mg/Syringe 20 ml @ 5 mls/min Protocol IV 1755: Ordered Albuterol/Ipratropium 3 ml .ROUTE 1757: The resident discussed the patient's case with FLOYD Sandoval, [facility] Hospitalist. The patient will be evaluated for further management and care. Medical Decision This is a 61-year-old male who presents with chest pain and fever. Differential diagnosis includes pneumonia, pleurisy, sepsis, SIRS, pericarditis. I did perform a limited focused review of portions of the patient 's old chart on the electronic medical record. The patient had a bronchoscopy in June which showed a mucus plug in the right lower lobe and diffuse mucus secretions in the left lobe. I did evaluate the patient as noted above. IV access was established. The patient was placed on a continuous camera control operator. I did order and personally review the patient's 12-lead EKG and chest x-ray as described above. He does have bilateral pneumonia. Blood cultures were obtained. He is treated with IV cefepime. I did order and review the patient's blood work as noted in the electronic medical record. His white count is significant elevated. The patient was also given a DuoNeb and normal saline IV. The case was discussed with the hospitalist and the case finisher. Resident Physician Supervision Note: I did evaluate and examine this patient myself. I did guide management for the patient. I agree with the resident's Dr. Sheldon Atkinson assessment as discussed. Please see the resident's dictation for further details. Medication Reconcilliation Current Medication List: was personally reviewed by me Blood Pressure Screening Patient's blood pressure: Normal blood pressure Blood pressure disposition: Did not require urgent referral Consults Time Called: 1756 Consulting Physician: FLOYD Sandoval [facility] Hospitalist Returned Call: [phone] The resident discussed the patient's case with FLOYD Sandoval [facility] Hospitalist. The patient will be evaluated for further management and care. Impression Primary Impression: Multifocal pneumonia Additional Impressions: Hypoxemia Failure of outpatient treatment Scribe Attestation The scribe's documentation has been prepared under my direct and personally reviewed by me in its entirety. I confirm that the note above accurately reflects all work, treatment, procedures, and medical decision making performed by me. Departure Information Dispostion Being Evaluated By Hospitalist Referrals Kyle Nguyen MD (PCP) Patient Instructions My [facility] Problem Qualifiers
[2017-08-31] MEDS ORDERED: CLINDAMYCIN IV 300 MG in DEXTROSE 5% 50ML 50 ML IV ONE (19:45)
[2017-08-31] MEDS ORDERED: METHYLPREDNISOLONE IV 40 MG in SYRINGE 0 ML IV ONE (19:45)
[2017-08-31 20:25] VITALS: BMI 18.5
[2017-08-31] MEDS ORDERED: ACETAMINOPHEN 325 MG TAB PO PRN (20:45)
[2017-08-31] MEDS ORDERED: LEVALBUTEROL/IPRATROPIUM NEB INH PRN (20:45)
[2017-08-31] MEDS ORDERED: LEVALBUTEROL/IPRATROPIUM NEB INH SCH (21:00)
[2017-08-31] MEDS ORDERED: CLINDAMYCIN CONSULT ACTIVE PRN (21:15)
[2017-08-31 21:30] VITALS: BP 101/58
[2017-08-31] MEDS ORDERED: FUROSEMIDE INJ 40 MG in SYRINGE 0 ML IV ONE (21:30)
[2017-08-31] MEDS ORDERED: WARFARIN SOD 5 MG TAB PO ONE (21:45)
--- NOTE | 2017-08-31 22:03 | History and Physical ---
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 Pt reports increased cough of brown sputum and increased SOB and reports seen by pulm on 08/16/17 and started on levaquin 500mg x 7 days and prednisone. Pt states chokes on food and water but "knows how to cough it out" and doesn't feel that he aspirated. States finished meds and has been using duoneb TID without relief. [place] feverish couple days ago, didn't measure temperature. C/O some CP left sided chest with coughing initially and the states had constant ache past 3 days and felt like had to hold in his cough to avoid aggravating pain. Denies any CP currently. Sleeps propped up chronically. Follows with [facility] pulmonology. In past required bronchoscopy by Dr Oviedo. Hx a-fib after surgery, follows with [facility] cardiology [facility]. Denies diaphoresis, N/V/D/C, STONE, syncope, vision changes, neck pain, palpitations, hemoptysis, otalgia, rhinorrhea, abdominal pain, paresthesias, extremity weakness, extremity edema, rashes, urinary symptoms. In ER pt temp: 39.4, BP: 111/61, 96/61, pulse: 107, R: 32, O2 90% on 2L drops to 80's with ambulation. On non-rebreather in ER with sats low 90's. WBC: 21, pending lactic acid. pending blood cultures. CXR: persistent bilateral airspace opacities. Pt given 500ml NSS, duoneb tx, xopenex neb, Tylenol, cefepime. Past Medical/Surgical History Medical Problems: (1) Allergic rhinitis Status: Chronic (2) Cancer Status: Chronic (3) COPD, moderate Status: Chronic (4) GERD (gastroesophageal reflux disease) Status: Chronic (5) History of throat cancer Status: Resolved (6) HTN (hypertension) Status: Chronic (7) Hyperlipidemia Status: Chronic (8) Hypothyroidism Status: Chronic Surgical Problems: (1) H/O aortic valve repair Status: Resolved (2) H/O mitral valve repair Status: Resolved (3) H/O neck surgery Permanent Comment: PART REMOV LARYNX, NECK DISSECTION Status: Resolved Family History Diabetes mellitus FH: CAD (coronary artery disease) FH: cancer Social History Smoking Status: Former Smoker (quit 2006, 2-4ppd x 30 years) Smokeless Tobacco Use: No Alcohol Use: 2-3 beers a day. Hasn't had beer since 08/28/17 when drank 1 beer that day Drug Use: none Marital Status: in relationship Occupational Status: disabled Immunizations History of Influenza Vaccine: Unknown History of Tetanus Vaccine?: Unknown History of Pneumococcal: Unknown History of Hepatitis B Vaccine: Unknown Multi-Drug Resistant Organisms History of MDRO: No Allergies Coded Allergies: Penicillins (Verified Allergy, Severe, FACE SWELLS, 08/31/17) Sulfa Drugs (Verified Allergy, Unknown, ITCH, 08/31/17) Home Medications Scheduled Aspirin (Aspirin Ec), 81 MG PO DAILY Atorvastatin (Lipitor), 10 MG PO DAILY Famotidine (Famotidine), 20 MG PO QAM Fluticasone Prop/Salmeterol (Advair Diskus 250-50 Mcg/Dose), 1 PUFF INH DAILY Home O2 Therapy (Oxygen), 2 LITERS NA HS Levothyroxine Sodium (Levothyroxine Sodium), 100 MCG PO DAILY Lisinopril (Zestril), 20 MG PO DAILY Metoprolol Succinate (Metoprolol Succinate ER), 25 MG PO DAILY Warfarin Sod (Jantoven), 2.5 MG PO WK Warfarin Sod (Jantoven), 5 MG PO 4XWK Scheduled PRN Acetaminophen (Tylenol), 650 MG PO Q8 PRN for Pain Albuterol Sulfate (Albuterol Sulfate), 1 INHA NEB DIRECTED PRN for SOB/ Wheezing Albuterol Sulfate (Proventil Hfa), 2 PUFF INH UD PRN for SORE THROAT Review of Systems Constitutional: + problem reported (see HPI), No weight loss Eyes: No worsening of vision, No eye pain, No redness, No discharge ENT: + problem reported (see HPI), No unusual epistaxis Respiratory: + problem reported (see HPI) Cardiovascular: No chest pain, No orthopnea, No PND, No edema, No claudication Abdomen: No pain, No nausea, No vomiting, No diarrhea, No constipation Musculoskeletal: No joint pain, No muscle pain, No swelling, No calf pain Genitourinary - Male: No hematuria, No dysuria, No urinary frequency, No urinary urgency, No urinary hesitancy, No urinary retention Neurologic: No numbness/tingling, No vertigo Endocrine: No excessive thirst, No excessive urination Integumentary: No rash, No itch Physical Exam Vital Signs Date Time Temp Pulse Resp B/P (MAP) Pulse Ox O2 Delivery O2 Flow Rate FiO2 08/31/17 19:06 107 112/60 97 Non-Rebreather 15.0 08/31/17 17:58 92 96/61 91 Nebulizer 10.0 08/31/17 16:40 97 08/31/17 16:19 94 Non-Rebreather 15.0 08/31/17 16:18 85 Nasal Cannula 4.0 08/31/17 16:18 92 Non-Rebreather 15.0 08/31/17 16:01 39.4 107 32 111/61 90 Nasal Cannula 2.5 General Appearance: + pertinent finding (chronic ill appearing, thin) Head: normocephalic, atraumatic Eyes: normal inspection, PERRL, EOMI, sclerae normal ENT: hearing grossly normal, pharynx normal, + pertinent finding (dry mucous membranes) Neck: supple, trachea midline Respiratory/Chest: chest non-tender, + decreased breath sounds (throughout, no rales noted, tachypneic) Cardiovascular: + tachycardia (rate 102, regular rhythm) Abdomen/GI: normal bowel sounds, non tender, soft Extremities/Musculoskelatal: no calf tenderness, normal capillary refill, no pedal edema, normal range of motion, non-tender Neurologic/Psych: alert, normal mood/affect, oriented x 3 Skin: warm/dry Diagnostics Laboratory Results Last 24 Hours Test 08/31/17 16:20 08/31/17 17:21 08/31/17 18:39 08/31/17 20:52 White Blood Count 21.43 K/uL Red Blood Count 3.97 M/uL Hemoglobin 12.4 g/dL Hematocrit 39.2 % Mean Corpuscular Volume 98.7 fL Mean Corpuscular Hemoglobin 31.2 pg Mean Corpuscular Hemoglobin Concent 31.6 g/dl Platelet Count 332 K/uL Mean Platelet Volume 10.2 fL Neutrophils (%) (Auto) 89.9 % Lymphocytes (%) (Auto) 3.9 % Monocytes (%) (Auto) 5.8 % Eosinophils (%) (Auto) 0.0 % Basophils (%) (Auto) 0.0 % Neutrophils # (Auto) 19.25 K/uL Lymphocytes # (Auto) 0.84 K/uL Monocytes # (Auto) 1.25 K/uL Eosinophils # (Auto) 0.00 K/uL Basophils # (Auto) 0.01 K/uL RDW Standard Deviation 51.2 fL RDW Coefficient of Variation 14.1 % Immature Granulocyte % (Auto) 0.4 % Immature Granulocyte # (Auto) 0.08 K/uL Prothrombin Time 21.8 SECONDS Prothromb Time International Ratio 2.1 Activated Partial Thromboplast Time 52.0 SECONDS Partial Thromboplastin Ratio 2.0 Sodium Level 137 mmol/L Potassium Level 4.1 mmol/L Chloride Level 98 mmol/L Carbon Dioxide Level 33 mmol/L Anion Gap 6.0 mmol/L Blood Urea Nitrogen 17 mg/dl Creatinine 0.76 mg/dl Est Creatinine Clear Calc Drug Dose 77.7 ml/min Estimated GFR () 115.7 Estimated GFR (Non- 99.9 BUN/Creatinine Ratio 22.0 Random Glucose 111 mg/dl Calcium Level 9.1 mg/dl Total Bilirubin 1.2 mg/dl Aspartate Amino Transf (AST/SGOT) 28 U/L Alanine Aminotransferase (ALT/SGPT) 25 U/L Alkaline Phosphatase 84 U/L Pro-B-Type Natriuretic Peptide 1530 pg/ml Total Protein 7.8 gm/dl Albumin 3.0 gm/dl Globulin 4.8 gm/dl Albumin/Globulin Ratio 0.6 Procalcitonin 3.33 ng/ml Influenza Type A (RT-PCR) Neg for Influ A Influenza Type A Antigen Neg for Influ A Influenza Type B Antigen Neg for Influ B Influenza Type B (RT-PCR) Neg for Influ B Lactic Acid Level 1.1 mmol/L Arterial Blood pH 7.39 Arterial Blood Partial Pressure CO2 52 mmHg Arterial Blood Partial Pressure O2 93 mm/Hg Arterial Blood HCO3 30 mmol/L Arterial Blood Oxygen Saturation 96.2 % Arterial Blood Base Excess 4.7 mEq/L Arterial Blood Gas Delivery 5L Teddy Test POS Diagnostic Radiology CXR: IMPRESSION: Persistent bilateral airspace opacities superimposed on chronic lung disease. While likely representing a multifocal pneumonia, asymmetric pulmonary edema could appear similar. Impression Assessment and Plan SEPSIS secondary pneumonia, likely aspiration with pt's hx recurrent aspiration with hx epiglottis CA s/p supraglottic laryngectomy. Pt hx COPD on 2.5L O2 chronically. Pt failed out pt treatment with levaquin and prednisone. WBC: 21, procalcitonin: 3.3. Lactic acid: 1.1. negative influenza. Temp: 39.4, P: 107, R : 32. O2 sat 90% on 2.5L NC, dropped 80's with ambulation. pt placed on non- rebreather. CXR: "Persistent bilateral airspace opacities superimposed on chronic lung disease. While likely representing a multifocal pneumonia, asymmetric pulmonary edema could appear similar."Pt given cefepime in ER, duoneb , xopenex neb, IVF -ABG ordered -Pending blood cultures -sputum culture -aspiration precautions -clindamycin -solumedrol -xopenex/atrovent nebs -pulmonology consult HX RHEUMATIC VALVULAR DISEASE S/P AORTIC AND MITRAL VALVE REPLACEMENT INR 2.1 -continue coumadin -echo HYPOTHYROIDISM -pending TSH -continue levothyroxine ANEMIA Hgb: 12.4, baseline ~13.3 -iron studies DVT PROPHYLAXIS -coumadin DISPOSITION -admit tele -Full Code as per discussion with pt -Follows with Dr Nguyen for routine care Pt was seen with Dr Larson. See addendum Level of Care Telemetry Resuscitation Status FULL RESUSCITATION VTE Prophylaxis VTE Risk Assessment Done? Y/N: Yes Risk Level: Moderate Given or contraindicated: Warfarin (Coumadin) Additional Copies To Kyle Nguyen MD Assessment/Plan IM ATTENDING : Patient seen and examined. Preceding documentation by Ms. Phoebe Angel PA-C reviewed. FINAL ASSESSMENT AND PLAN as follows: 1. Acute hypoxemic respiratory failure secondary to chronic obstructive pulmonary disease exacerbation secondary to recurrent aspiration known aspiration risk Hx noncompliance with swallow evaluation instructions from admission from 2016 as per records. hx R VC paralysis hx laryngeal cancer sp surgery, radiation failed outpatient treatment. Possible sepsis ? congestive heart failure (possible asymmetric pulmonary edema on imaging, elevated BNP) 2. History of rheumatic heart disease status post mechanical aortic/mitral valve replacement. INR slightly subtherapeutic. 3. Acute on chronic anemia. Drop from baseline hemoglobin of 13 Stool Hemoccult negative. 4. History of peripheral vascular disease. 5. Past tobacco abuse. 6. Malnutrition, low BMI. PCU supplemental O2 baseline ABG. CS Clindamycin, nebs, steroids, aspiration precautions repeat swallow evaluation/counseling Pulmonary consult RE respiratory failure. (Patient known to Dr. Oviedo.) Lasix 1 dose now for possible pulmonary congestion TTE RE pulmonary congestion, elevated BNP ro CHF (May need inpatient Cardio evaluation if 2-D echo shows CHF.) Anemia workup Nutrition consult. RE low BMI DVT prophylaxis, Coumadin. INR goal between 2.5-3.5. Full code.
[2017-09-01] VITALS (11 sets, daily range): BP systolic 82–134; BP diastolic 41–70; PULSE 65–75; TEMP 36.4–36.9; O2SAT 85–100; Ht 167.6 cm; Wt 50.9 kg
[2017-09-01] MEDS: LEVALBUTEROL 1.25MG/0.5ML NEB INH SCH ×4 (01:46→19:23)
[2017-09-01] MEDS: IPRATROPIUM BROMIDE NEB SOLN 0.02% 2.5 ML VIAL INH SCH ×4 (01:46→19:23)
[2017-09-01] MEDS: CLINDAMYCIN HCL 150 MG CAP PO SCH ×3 (06:18→20:49)
[2017-09-01] MEDS: LEVOTHYROXINE 100 MCG TAB PO SCH (06:19)
[2017-09-01 06:39] LABS: BASO % 0.1 %; BASO ABS # 0.01 K/uL (0-0.2); HEMATOCRIT 39.1 % (42-52); HEMOGLOBIN 12.1 g/dL (14.0-18.0); IG# 0.04 K/uL (0.00-0.02); LYMPH % 6.7 %; LYMPH ABS # 0.82 K/uL (1.2-3.4); MEAN CELL VOLUME 99.5 fL (80-100); MEAN CORPUSCULAR HEMOGLOBIN 30.8 pg (25-34); MEAN CORPUSCULAR HGB CONC 30.9 g/dl (32-36); MONO % 3.1 %; MONO ABS # 0.38 K/uL (0.11-0.59); NEUT % 89.8 %; NEUT ABS # 11.01 K/uL (1.4-6.5); PLATELET COUNT 298 K/uL (130-400); RED CELL DISTRIBUTION WIDTH CV 14.4 % (11.5-14.5); RED CELL DISTRIBUTION WIDTH SD 52.1 fL (36.4-46.3); RETIC COUNT % 0.8 % (0.5-2.0); WHITE BLOOD COUNT 12.26 K/uL (4.8-10.8)
[2017-09-01 06:55] LABS: INR 3.8 (0.9-1.1)
[2017-09-01 07:18] LABS: CALCIUM 8.8 mg/dl (8.5-10.1); CREATININE 0.73 mg/dl (0.60-1.40); POTASSIUM 3.4 mmol/L (3.5-5.1)
--- NOTE | 2017-09-01 07:24 | Clinical Documentation Query ---
CLINICAL DOCUMENTATION QUERY Dr. ORTEGA, In your clinical opinion is this patient being managed for: ( ) Acute and chronic respiratory failure ( ) Not Agree ( ) Other explanation of clinical findings (Please Explain) ( ) Unable to determine (Please Define) ( ) Need to Discuss The medical record reflects the following clinical findings, treatment, and risk factors. Clinical Indicators: 61 yo male presenting with sepsis and pneumonia, likely aspiration. Tachypneic with rate of 32, O2 sat 90% on 2.5 L, pCO2 52. Treatment: NRB mask, pulmonary consult, tele monitoring, ABG's, aspiration precautions, duonebs, xopenex, IV cefepime, IV clindamycin, IV solumedrol Risk Factors: sepsis, aspiration pneumonia, former smoker, COPD, failed outpatient treatment for pneumonia Acute Respiratory Failure indicators include: * Respirations >28 or tachypnea * Air hunger * Use of accessory muscles of respiration * Inability to speak in full sentences *Cyanosis * Pulse ox <90% RA or <95% on O2 *pH <7.35 or >7.45 * pO2 < 60 mm Hg (or 10mm below COPD patient's baseline) * pCO2 >50mm Hg (or 10mm above COPD patient's baseline) Please clarify and document your clinical opinion in the progress notes and discharge summary. Terms such as "probable", "suspected", "likely", "questionable", "possible", or "still to be ruled out" are acceptable. IF IN AGREEMENT, YOU MUST DOCUMENT ABOVE DIAGNOSTIC STATEMENT IN DAILY PROGRESS NOTES AND DISCHARGE SUMMARY. This document is not part of the patient's record. Thank You, Adele Anderson, RN [phone]
--- NOTE | 2017-09-01 07:34 | HISTORY & PHYSICAL EXAMINATION ---
DATE OF ADMISSION: 08/31/2017 IM ATTENDING : Patient seen and examined. Preceding documentation by Ms. Phoebe Angel PA-C reviewed. FINAL ASSESSMENT AND PLAN as follows: 1. Acute hypoxemic respiratory failure secondary to chronic obstructive pulmonary disease exacerbation secondary to recurrent aspiration known aspiration risk Hx noncompliance with swallow evaluation instructions from admission from 2015 as per records. hx R VC paralysis hx laryngeal cancer sp surgery, radiation failed outpatient treatment. Possible sepsis ? congestive heart failure (possible asymmetric pulmonary edema on imaging, elevated BNP) 2. History of rheumatic heart disease status post mechanical aortic/mitral valve replacement. INR slightly subtherapeutic. 3. Acute on chronic anemia. Drop from baseline hemoglobin of 13 Stool Hemoccult negative. 4. History of peripheral vascular disease. 5. Past tobacco abuse. 6. Malnutrition, low BMI. PCU supplemental O2 baseline ABG. Clindamycin, nebs, steroids, aspiration precautions repeat swallow evaluation/counseling Pulmonary consult RE respiratory failure. (Patient known to Dr. Oviedo.) Lasix 1 dose now for possible pulmonary congestion TTE RE pulmonary congestion, elevated BNP ro CHF (May need inpatient Cardio evaluation if 2-D echo shows CHF.) Anemia workup Nutrition consult. RE low BMI DVT prophylaxis, Coumadin. INR goal between 2.5-3.5. Full code. MTDD
[2017-09-01] MEDS: ASPIRIN 81 MG ECTAB PO SCH (07:42)
[2017-09-01] MEDS: ATORVASTATIN 10 MG TAB PO SCH (07:42)
[2017-09-01] MEDS: METOPROLOL SUCC 25MG EXT REL TAB PO SCH (07:43)
[2017-09-01] MEDS: FAMOTIDINE 20 MG TAB PO SCH (07:43)
[2017-09-01] MEDS ORDERED: LISINOPRIL 20 MG TAB PO SCH (09:00)
[2017-09-01] MEDS ORDERED: FERROUS SULFATE 325 MG TAB PO ONE (10:12)
[2017-09-01] MEDS ORDERED: POTASSIUM CHLORIDE 20 MEQ TABCR PO ONE (10:15)
--- NOTE | 2017-09-01 15:53 | Pulmonary Consultation ---
History General Date of Service: Sep 01, 2017. Stated Complaint: Pneumonia, Sepsis HPI The patient is a 61 year old male who presents to [facility] with complaints of Pneumonia, Sepsis. The patient's primary care provider is Kyle Nguyen MD. Mr. 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 He also has history of rheumatic fever, aortic stenosis status post aVR, history of mitral valve repair, hypertension and hypothyroidism. He has history of chronic aspiration and severe COPD with FEV1 of 42%. He is on long-term oxygen therapy at 2 L/m nasal cannula. He is a former tobacco user up to 4 packs per day for about 25 years. He quit smoking in 2006. He is followed in the [facility] pulmonary office by MYRTLE Cody. He has had multiple bronchoscopies for mucous plugging and mucoid impaction. He has mainly had this problem since surgery as he has had some vocal cord dysfunction and paralysis. He has chronic hoarseness. PFT 01/03/2017: FVC: 1.8/50 %, FEV1: 1.25/42 %, FEV1/FVC: 69, FEF 25-75 %: 0.28/20 %, FVC: 1.8/50 %, T.92/104 %, RV: 4.12/198 %, DLCO: 50 % Last bronchoscopy was in June 2017 which was for right lower lobe atelectasis. Cultures at that time of the BAL grew group G beta strep. He was treated with Levaquin. He was recently seen in the pulmonary office on 08/16/2017 for shortness of breath associated with cough and brownish productive sputum. At that time he was given a seven-day course of Levaquin 500 mg daily as well as prednisone. His respiratory medications include Advair Diskus 500/50 one puff twice daily, elected to 62.51 puff daily, ipratropium/albuterol nebulizer every 4 hours as needed, famotidine 20 mg daily and Coumadin 2 mg daily. He states that his symptoms never improved, however his sputum is now whitish to yellowish in color. He states that he has had subjective fevers at home, but denies any night sweats, hemoptysis or weight loss. He denies any changes in appetite. She does endorse pleuritic chest pain with coughing. He admits to orthopnea and paroxysmal nocturnal dyspnea consistent with his head elevated most nights. He denies any lower extremity edema or swelling. Denies any sick contacts or recent travel. His exercise tolerance is about 30 feet., but over the last several weeks has decreased to several steps.He now presents with worsening shortness of breath and feels that he has not returned back to his baseline which prompted him to come to the hospital for further evaluation. Vital signs upon arrival to the ER, temperature was 39.4, pulse 107, respiratory rate 32, blood pressure 111/61, pulse oximetry 90% on 2.5 L. He desaturated to 85% and was switched to 15 L per minute nonrebreather mask with a saturation of 94%. Initial laboratory data showed a white blood cell count of 21.43, hemoglobin of 12.4, platelet count 332. Sodium 137, potassium 4.1, chloride 98, carbon dioxide 33, BUN 17 creatinine 0.76. His total bili was 1.2. Albumin 3, total protein 7.8. His pro-calcitonin is 2.33 . Lactate was 1.1. His PT 21.8 and INR 2.1. Sputum culture showing pinpoint growth and blood cultures pending. Chest x-ray shows persistent bilateral airspace opacities with superimposed chronic lung disease. He was given normal saline 500 mL bolus 2, Xopenex nebulizer, cefepime 2 g, albuterol/ipratropium nebulizer, Solu-Medrol 40 mg IV, clindamycin 300 mg IV, Lasix 40 mg and Coumadin 5 mg. At time of my evaluation, patient sitting up in bed in no acute respiratory distress. He states he is feeling much better since admission. He is still having intermittent cough with yellowish productive sputum. He denies any further episodes of fever or chills. MAXIMUM TEMPERATURE 36.7, blood pressure ranging from 95/62-134/70, pulse 66-75, respiratory rate 15-24 saturating between 85-100% on 3-4 L/m nasal cannula. Historian: patient Onset: last week Severity: moderate Complaint Status: persistent Review of Systems Constitutional: reports: as stated in HPI Eyes: reports: as stated in HPI ENT: reports: as stated in HPI Cardiovascular: reports: as stated in HPI Respiratory: reports: as stated in HPI Gastrointestinal: reports: as stated in HPI Genitourinary - Male: reports: as stated in HPI Musculoskeletal: reports: as stated in HPI Integumentary: reports: as stated in HPI Neurologic: reports: as stated in HPI Psychiatric: reports: as stated in HPI Endocrine: as stated in HPI Hematologic / Lymphatic: as stated in HPI Allergic / Immunologic: as stated in HPI All Other Symptoms All Other Systems: Reviewed and Negative Past Medical History Past Medical History: Active Problems 1. Abnormal chest x-ray with multiple lung nodules (R91.8) 2. Abnormal CT scan of lung (R91.8) 3. Acid reflux (K21.9) 4. Adenocarcinoma (C80.1) 5. Allergic rhinitis (J30.9) 6. Aortic regurgitation (I35.1) 7. Aortic stenosis, supravalvular (Q25.3) 8. Aspiration into airway (T17.908A) 9. Chronic obstructive pulmonary disease (J44.9) 10. Cough (R05) 11. Dysphagia (R13.10) 12. Foreign body, respiratory tree (T17.908A) 13. Hypertension (I10) 14. Hypothyroidism (E03.9) 15. Laryngeal cancer (C32.9) 16. Malignant neoplasm (C80.1) 17. Mitral stenosis (I05.0) 18. Mucoid impaction of bronchi (J98.09) 19. Rheumatic heart disease, acute (I01.9) 20. Streptococcal pneumonia (J15.4) 21. Underweight (R63.6) 22. Vocal cord paralysis (J38.00) Past Medical History 1. History of Aspiration Pneumonia Due To Vomitus Past Surgical History: Surgical History 1. History of Epiglottidectomy 2. History of Laryngeal Surgery 3. History of Throat Surgery 4. History of Tracheostomy Family History Diabetes mellitus FH: CAD (coronary artery disease) FH: cancer Family History 1. Family history of Diabetes Mellitus 2. Family history of Heart Disease 3. Family history of Heart Disease 4. Family history of Diabetes Mellitus Social History Social History Drinking In Moderation (2 Drinks / Day Or Fewer) Denied: History of Drug Use Former smoker (Z87.891) Marital History - Uses Safety Equipment - Seatbelts Hx Tobacco Use In Past Year?: No Smoking Status: Former Smoker (quit 2006, 2-4ppd x 30 years) Marital status: in relationship Occupational Status: disabled Immunizations History of Influenza Vaccine: Unknown History of Tetanus Vaccine?: Unknown History of Pneumococcal: Unknown History of Hepatitis B Vaccine: Unknown History of MDRO History of MDRO: No Allergies Coded Allergies: Penicillins (Verified Allergy, Severe, FACE SWELLS, 08/31/17) Sulfa Drugs (Verified Allergy, Unknown, ITCH, 08/31/17) Current Medications Reported Home Medications Medications Dose Route/Sig Max Daily Dose Days Date Category Dose Instructions Proventil Hfa (Albuterol Sulfate) 108 Mcg/Act Aer 2 Puff INH UD PRN 04/16/17 Reported Metoprolol Succinate ER (Metoprolol Succinate) 25 Mg Tabcr 25 Mg PO DAILY 04/16/17 Reported Famotidine 20 Mg Tab 20 Mg PO QAM 04/16/17 Reported Jantoven (Warfarin Sodium) 2.5 Mg Tab 5 Mg PO [id number] 06/18/16 Reported SAT,SUN,MON,TUES,WED,FRI Jantoven (Warfarin Sodium) 2.5 Mg Tab 2.5 Mg PO WK 06/18/16 Reported THURS Oxygen Gas 2 Liters NA HS 06/18/16 Reported Lipitor (Atorvastatin Calcium) 10 Mg Tab 10 Mg PO DAILY 06/18/16 Reported Albuterol Sulfate 1 Pow Pow 1 Inha NEB DIRECTED PRN 06/03/14 Reported Aspirin Ec (Aspirin) 81 Mg Tab 81 Mg PO DAILY 06/03/14 Reported Tylenol (Acetaminophen) 325 Mg Tab 650 Mg PO Q8 PRN 06/03/14 Reported Advair Diskus 250-50 Mcg/Dose (Fluticasone Prop/Salmeterol) 14 Puff/1 Inhaler Aerp 1 Puff INH DAILY 06/03/14 Reported Levothyroxine Sodium 100 Mcg Tab 100 Mcg PO DAILY 06/03/14 Reported Zestril (Lisinopril) 20 Mg Tab 20 Mg PO DAILY 06/24/07 Reported Physical Physical Exam Vital Signs: Date Time Temp Pulse Resp B/P (MAP) Pulse Ox O2 Delivery O2 Flow Rate FiO2 09/01/17 14:18 71 16 96 Nasal Cannula 4.0 09/01/17 12:00 Nasal Cannula 3.0 09/01/17 11:46 36.6 70 20 97/59 (72) 94 4.0 09/01/17 08:00 Nasal Cannula 3.0 09/01/17 07:33 36.7 71 24 134/70 (91) 85 Nasal Cannula 3.0 09/01/17 07:23 71 16 100 Nasal Cannula 4.0 09/01/17 04:00 Nasal Cannula 4.0 09/01/17 03:07 36.4 75 18 121/65 (83) 93 Nasal Cannula 3.0 09/01/17 01:49 66 16 96 Nasal Cannula 4.0 09/01/17 00:00 36.6 69 15 95/62 (73) 97 Nasal Cannula 4.0 08/31/17 23:59 Nasal Cannula 4.0 08/31/17 21:30 101/58 (72) 08/31/17 20:25 Nasal Cannula 4.0 08/31/17 20:08 37.2 87 18 105/34 92 08/31/17 19:46 99 18 112/60 94 Oxymask 6.0 08/31/17 19:06 107 112/60 97 Non-Rebreather 15.0 08/31/17 17:58 92 96/61 91 Nebulizer 10.0 08/31/17 16:40 97 08/31/17 16:19 94 Non-Rebreather 15.0 08/31/17 16:18 85 Nasal Cannula 4.0 08/31/17 16:18 92 Non-Rebreather 15.0 08/31/17 16:01 39.4 107 32 111/61 90 Nasal Cannula 2.5 General Appearance: NO APPARENT DISTRESS, thin, cachetic Head: NORMOCEPHALIC, ATRAUMATIC Eyes: PERRLA, NO DISCHARGE, EOMI, SCLERAE NORMAL ENT: NORMAL MOUTH EXAM Neck: NORMAL RANGE OF MOTION, NO TENDERNESS, TRACHEA MIDLINE, other (hoarsness) Respiratory: other (diminished breath sounds bilaterally) Cardiovasular: REGULAR RATE/RHYTHM, NORMAL S1S2 Abdomen: NON TENDER, NORMAL BOWEL SOUNDS, NO REBOUND Upper Extremities: NO EDEMA, NO DEFORMITY, NORMAL ROM, other (the cyanosis or clubbing) Lower Extremities: NO EDEMA, NO DEFORMITY, NORMAL ROM Pulses: dorsalis pedis (R) (2+), dorsalis pedis (L) (2+) Neuro: ALERT, ORIENTED x 3, NORMAL MOTOR EXAM, NORMAL SENSATION, NORMAL MEMORY Psychiatric: NORMAL AFFECT, NO SUICIDAL IDEATION, CONTRACTS FOR SAFETY Diagnostics Labs Results Past 24 Hours Test 08/31/17 16:20 08/31/17 17:21 08/31/17 18:39 08/31/17 20:52 Range/Units White Blood Count 21.43 4.8-10.8 K/uL Red Blood Count 3.97 4.7-6.1 M/uL Hemoglobin 12.4 14.0-18.0 g/dL Hematocrit 39.2 42-52 % Mean Corpuscular Volume 98.7 80-100 fL Mean Corpuscular Hemoglobin 31.2 25-34 pg Mean Corpuscular Hemoglobin Concent 31.6 32-36 g/dl Platelet Count 332 130-400 K/uL Mean Platelet Volume 10.2 7.4-10.4 fL Neutrophils (%) (Auto) 89.9 % Lymphocytes (%) (Auto) 3.9 % Monocytes (%) (Auto) 5.8 % Eosinophils (%) (Auto) 0.0 % Basophils (%) (Auto) 0.0 % Neutrophils # (Auto) 19.25 1.4-6.5 K/uL Lymphocytes # (Auto) 0.84 1.2-3.4 K/uL Monocytes # (Auto) 1.25 0.11-0.59 K/uL Eosinophils # (Auto) 0.00 0-0.5 K/uL Basophils # (Auto) 0.01 0-0.2 K/uL RDW Standard Deviation 51.2 36.4-46.3 fL RDW Coefficient of Variation 14.1 11.5-14.5 % Immature Granulocyte % (Auto) 0.4 % Immature Granulocyte # (Auto) 0.08 0.00-0.02 K/uL Prothrombin Time 21.8 9.0-12.0 SECONDS Prothromb Time International Ratio 2.1 0.9-1.1 Activated Partial Thromboplast Time 52.0 21.0-31.0 SECONDS Partial Thromboplastin Ratio 2.0 Sodium Level 137 136-145 mmol/L Potassium Level 4.1 3.5-5.1 mmol/L Chloride Level 98 98-107 mmol/L Carbon Dioxide Level 33 21-32 mmol/L Anion Gap 6.0 3-11 mmol/L Blood Urea Nitrogen 17 7-18 mg/dl Creatinine 0.76 0.60-1.40 mg/dl Est Creatinine Clear Calc Drug Dose 77.7 ml/min Estimated GFR () 115.7 Estimated GFR (Non- 99.9 BUN/Creatinine Ratio 22.0 10-20 Random Glucose 111 70-99 mg/dl Calcium Level 9.1 8.5-10.1 mg/dl Total Bilirubin 1.2 0.2-1 mg/dl Aspartate Amino Transf (AST/SGOT) 28 15-37 U/L Alanine Aminotransferase (ALT/SGPT) 25 12-78 U/L Alkaline Phosphatase 84 45-117 U/L Pro-B-Type Natriuretic Peptide 1530 0-900 pg/ml Total Protein 7.8 6.4-8.2 gm/dl Albumin 3.0 3.4-5.0 gm/dl Globulin 4.8 2.5-4.0 gm/dl Albumin/Globulin Ratio 0.6 0.9-2 Procalcitonin 3.33 0-0.5 ng/ml Influenza Type A (RT-PCR) Neg for Influ A NEG Influenza Type A Antigen Neg for Influ A NEG Influenza Type B Antigen Neg for Influ B NEG Influenza Type B (RT-PCR) Neg for Influ B NEG Lactic Acid Level 1.1 0.4-2.0 mmol/L Arterial Blood pH 7.39 7.35-7.45 Arterial Blood Partial Pressure CO2 52 35-46 mmHg Arterial Blood Partial Pressure O2 93 80-95 mm/Hg Arterial Blood HCO3 30 19-24 mmol/L Arterial Blood Oxygen Saturation 96.2 90-95 % Arterial Blood Base Excess 4.7 -9-1.8 mEq/L Arterial Blood Gas Delivery 5L Teddy Test POS POS Magnesium Level 1.9 1.8-2.4 mg/dl Troponin I < 0.015 0-0.045 ng/ml Thyroid Stimulating Hormone (TSH) 1.020 0.300-4.500 uIu/ml Test 09/01/17 06:23 Range/Units White Blood Count 12.26 4.8-10.8 K/uL Red Blood Count 3.93 4.7-6.1 M/uL Hemoglobin 12.1 14.0-18.0 g/dL Hematocrit 39.1 42-52 % Mean Corpuscular Volume 99.5 80-100 fL Mean Corpuscular Hemoglobin 30.8 25-34 pg Mean Corpuscular Hemoglobin Concent 30.9 32-36 g/dl Platelet Count 298 130-400 K/uL Mean Platelet Volume 10.0 7.4-10.4 fL Neutrophils (%) (Auto) 89.8 % Lymphocytes (%) (Auto) 6.7 % Monocytes (%) (Auto) 3.1 % Eosinophils (%) (Auto) 0.0 % Basophils (%) (Auto) 0.1 % Neutrophils # (Auto) 11.01 1.4-6.5 K/uL Lymphocytes # (Auto) 0.82 1.2-3.4 K/uL Monocytes # (Auto) 0.38 0.11-0.59 K/uL Eosinophils # (Auto) 0.00 0-0.5 K/uL Basophils # (Auto) 0.01 0-0.2 K/uL RDW Standard Deviation 52.1 36.4-46.3 fL RDW Coefficient of Variation 14.4 11.5-14.5 % Immature Granulocyte % (Auto) 0.3 % Immature Granulocyte # (Auto) 0.04 0.00-0.02 K/uL Absolute Reticulocyte Count 0.03 0.02-0.10 10^6/uL Percent Reticulocyte Count 0.8 0.5-2.0 % Prothrombin Time 39.0 9.0-12.0 SECONDS Prothromb Time International Ratio 3.8 0.9-1.1 Sodium Level 138 136-145 mmol/L Potassium Level 3.4 3.5-5.1 mmol/L Chloride Level 98 98-107 mmol/L Carbon Dioxide Level 36 21-32 mmol/L Anion Gap 4.0 3-11 mmol/L Blood Urea Nitrogen 19 7-18 mg/dl Creatinine 0.73 0.60-1.40 mg/dl Est Creatinine Clear Calc Drug Dose 76.1 ml/min Estimated GFR () 117.7 Estimated GFR (Non- 101.5 BUN/Creatinine Ratio 25.4 10-20 Random Glucose 165 70-99 mg/dl Calcium Level 8.8 8.5-10.1 mg/dl Iron Level 20 35-175 mcg/dl Total Iron Binding Capacity 266 250-450 mcg/dl Transferrin 161 200-360 mg/dl Transferrin % Saturation 9 20-50 % Ferritin 588.7 8.0-388.0 ng/ml Vitamin B12 Level 642 211-911 pg/mL Folate 14.05 >5.38 ng/mL Microbiology Results 08/31/17 Blood Culture, Received Pending 08/31/17 Blood Culture, Received Pending 08/31/17 Gram Stain - Final, Resulted 08/31/17 Sputum Culture, Resulted Pending Diagnostic Radiology CHEST ONE VIEW PORTABLE CLINICAL HISTORY: Sepsis COMPARISON STUDY: 08/16/2017 FINDINGS: There are postsurgical changes of a midline sternotomy and by valvular replacement. The heart is mildly enlarged. There are small bilateral pleural effusions. There are persistent bilateral airspace opacities. The findings likely represent pneumonia superimposed on chronic lung disease, although asymmetric pulmonary edema superimposed on chronic lung disease could appear similar.[ IMPRESSION: Persistent bilateral airspace opacities superimposed on chronic lung disease. While likely representing a multifocal pneumonia, asymmetric pulmonary edema could appear similar. Impression Assessment and Plan Acute on chronic hypoxemic hypercapnic respiratory failure COPD exacerbation secondary to pneumonia History of vocal cord paralysis Chronic aspiration and mucous plugging Mr. 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 Patient now presents with worsening shortness of breath and dyspnea on exertion he failed outpatient treatment with prednisone and Levaquin. Recommendations Continue his supplemental oxygen to maintain SaO2 between 88-92% Use BiPAP when necessary. Recommend aggressive pulmonary toilet with Mucomyst, flutter valve and chest PT. I also order him a chest vest for percussive therapy. Continue with broad-spectrum antibiotics for at least 5-7 days. White blood cell count has decreased since their administration. I would also like to follow-up sputum cultures and blood cultures. He should continue with inhaled bronchodilators as well as systemic corticosteroids. We can continue for another day and likely switch over to prednisone on Monday. Encourage out of bed to chair as well as PT and OT therapy as tolerated. Patient should follow in outpatient clinic with MYRTLE Miranda within 1-2 weeks post hospital discharge. I appreciate the consult. Please contact with any further questions or concerns.
--- NOTE | 2017-09-01 16:13 | Progress Note ---
Medicine Progress Note Date & Time of Visit: Sep 01, 2017 at 16:11. Subjective Pt was seen and examined Sitting in bed with no distress Pt said that he feels a little better He said that he has been coughing up phlegm Denies any chest pain, palpitation and fever Objective Last 8 Hrs Date Time Temp Pulse Resp B/P (MAP) Pulse Ox O2 Delivery O2 Flow Rate FiO2 09/01/17 14:18 71 16 96 Nasal Cannula 4.0 09/01/17 12:00 Nasal Cannula 3.0 09/01/17 11:46 36.6 70 20 97/59 (72) 94 4.0 Physical Exam: General- No acute distress Head- atraumatic Eyes- PERRL, EOMI ENT- oropharynx clear Neck- supple, no JVD Lungs- coarse BS Heart- regular rhythm Abdomen- normal bowel sounds, soft Extremities- no calf tenderness Neuro- alert, oriented x 3; PERRL, EOMI Skin- warm & dry Laboratory Results: Last 24 Hours Test 08/31/17 16:20 08/31/17 17:21 08/31/17 18:39 08/31/17 20:52 White Blood Count 21.43 K/uL Red Blood Count 3.97 M/uL Hemoglobin 12.4 g/dL Hematocrit 39.2 % Mean Corpuscular Volume 98.7 fL Mean Corpuscular Hemoglobin 31.2 pg Mean Corpuscular Hemoglobin Concent 31.6 g/dl Platelet Count 332 K/uL Mean Platelet Volume 10.2 fL Neutrophils (%) (Auto) 89.9 % Lymphocytes (%) (Auto) 3.9 % Monocytes (%) (Auto) 5.8 % Eosinophils (%) (Auto) 0.0 % Basophils (%) (Auto) 0.0 % Neutrophils # (Auto) 19.25 K/uL Lymphocytes # (Auto) 0.84 K/uL Monocytes # (Auto) 1.25 K/uL Eosinophils # (Auto) 0.00 K/uL Basophils # (Auto) 0.01 K/uL RDW Standard Deviation 51.2 fL RDW Coefficient of Variation 14.1 % Immature Granulocyte % (Auto) 0.4 % Immature Granulocyte # (Auto) 0.08 K/uL Prothrombin Time 21.8 SECONDS Prothromb Time International Ratio 2.1 Activated Partial Thromboplast Time 52.0 SECONDS Partial Thromboplastin Ratio 2.0 Sodium Level 137 mmol/L Potassium Level 4.1 mmol/L Chloride Level 98 mmol/L Carbon Dioxide Level 33 mmol/L Anion Gap 6.0 mmol/L Blood Urea Nitrogen 17 mg/dl Creatinine 0.76 mg/dl Est Creatinine Clear Calc Drug Dose 77.7 ml/min Estimated GFR () 115.7 Estimated GFR (Non- 99.9 BUN/Creatinine Ratio 22.0 Random Glucose 111 mg/dl Calcium Level 9.1 mg/dl Total Bilirubin 1.2 mg/dl Aspartate Amino Transf (AST/SGOT) 28 U/L Alanine Aminotransferase (ALT/SGPT) 25 U/L Alkaline Phosphatase 84 U/L Pro-B-Type Natriuretic Peptide 1530 pg/ml Total Protein 7.8 gm/dl Albumin 3.0 gm/dl Globulin 4.8 gm/dl Albumin/Globulin Ratio 0.6 Procalcitonin 3.33 ng/ml Influenza Type A (RT-PCR) Neg for Influ A Influenza Type A Antigen Neg for Influ A Influenza Type B Antigen Neg for Influ B Influenza Type B (RT-PCR) Neg for Influ B Lactic Acid Level 1.1 mmol/L Arterial Blood pH 7.39 Arterial Blood Partial Pressure CO2 52 mmHg Arterial Blood Partial Pressure O2 93 mm/Hg Arterial Blood HCO3 30 mmol/L Arterial Blood Oxygen Saturation 96.2 % Arterial Blood Base Excess 4.7 mEq/L Arterial Blood Gas Delivery 5L Teddy Test POS Magnesium Level 1.9 mg/dl Troponin I < 0.015 ng/ml Thyroid Stimulating Hormone (TSH) 1.020 uIu/ml Test 09/01/17 06:23 White Blood Count 12.26 K/uL Red Blood Count 3.93 M/uL Hemoglobin 12.1 g/dL Hematocrit 39.1 % Mean Corpuscular Volume 99.5 fL Mean Corpuscular Hemoglobin 30.8 pg Mean Corpuscular Hemoglobin Concent 30.9 g/dl Platelet Count 298 K/uL Mean Platelet Volume 10.0 fL Neutrophils (%) (Auto) 89.8 % Lymphocytes (%) (Auto) 6.7 % Monocytes (%) (Auto) 3.1 % Eosinophils (%) (Auto) 0.0 % Basophils (%) (Auto) 0.1 % Neutrophils # (Auto) 11.01 K/uL Lymphocytes # (Auto) 0.82 K/uL Monocytes # (Auto) 0.38 K/uL Eosinophils # (Auto) 0.00 K/uL Basophils # (Auto) 0.01 K/uL RDW Standard Deviation 52.1 fL RDW Coefficient of Variation 14.4 % Immature Granulocyte % (Auto) 0.3 % Immature Granulocyte # (Auto) 0.04 K/uL Absolute Reticulocyte Count 0.03 10^6/uL Percent Reticulocyte Count 0.8 % Prothrombin Time 39.0 SECONDS Prothromb Time International Ratio 3.8 Sodium Level 138 mmol/L Potassium Level 3.4 mmol/L Chloride Level 98 mmol/L Carbon Dioxide Level 36 mmol/L Anion Gap 4.0 mmol/L Blood Urea Nitrogen 19 mg/dl Creatinine 0.73 mg/dl Est Creatinine Clear Calc Drug Dose 76.1 ml/min Estimated GFR () 117.7 Estimated GFR (Non- 101.5 BUN/Creatinine Ratio 25.4 Random Glucose 165 mg/dl Calcium Level 8.8 mg/dl Iron Level 20 mcg/dl Total Iron Binding Capacity 266 mcg/dl Transferrin 161 mg/dl Transferrin % Saturation 9 % Ferritin 588.7 ng/ml Vitamin B12 Level 642 pg/mL Folate 14.05 ng/mL Date/Time Source Procedure Growth Status 08/31/17 16:25 Blood Blood Culture Pending Received 08/31/17 16:20 Blood Blood Culture Pending Received 08/31/17 21:10 Sputum Expectorated Sputum Gram Stain - Final Resulted 08/31/17 21:10 Sputum Expectorated Sputum Sputum Culture - Preliminary PIN-POINT GROWTH PRESENT, REINCUBATING. Resulted Assessment & Plan Acute on chronic hypoxemic hypercapnic respiratory failure Possible 2nd to COPD exacerbation due to B/L PNA Possible related to aspiration CXR showed Persistent bilateral airspace opacities superimposed on chronic lung disease ABG on admission showed PCO2 52 Continue supplement oxygen, chest PT and mycomyst On clindamycin IV Continue solumedrol and DuoNeb treatment Blood cx and sputum cx pending Speech consulted recommended strict NPO but pt choose to eat Refused any tube feeding Diet changed to dental soft diet, moist, thin liquids HX RHEUMATIC VALVULAR DISEASE S/P AORTIC AND MITRAL VALVE REPLACEMENT Hold coumadin for today INR 3.8 HYPOTHYROIDISM TSH WNL continue levothyroxine ANEMIA stable Low iron level starting on iron supplement HYPOKALEMIA K replaced monitor BMP HTN BP in the low side Will hold lisinopril will add parameter for metoprolol Continue monitor BP DVT PROPHYLAXIS Hold coumadin INR 3.8 DISPOSITION Continue monitor in tele Current Inpatient Medications: Current Inpatient Medications Medications (Trade) Dose Ordered Sig/Tony Route Start Time Stop Time Status Last Admin Dose Admin Clindamycin Phosphate (Consult) 1 ea UD PRN N/A 08/31/17 21:15 09/30/17 21:14 Acetaminophen (Tylenol Tab) 650 mg Q4H PRN PO 08/31/17 20:45 09/30/17 20:44 Aspirin (Ecotrin Tab) 81 mg DAILY PO 09/01/17 09:00 10/01/17 08:59 09/01/17 07:42 81 MG Atorvastatin Calcium (Lipitor Tab) 10 mg DAILY PO 09/01/17 09:00 10/01/17 08:59 09/01/17 07:42 10 MG Famotidine (Pepcid Tab) 20 mg QAM PO 09/01/17 09:00 10/01/17 08:59 09/01/17 07:43 20 MG Levothyroxine Sodium (Synthroid Tab) 100 mcg DAILYBB PO 09/01/17 06:00 10/01/17 05:59 09/01/17 06:19 100 MCG Lisinopril (Zestril Tab) 20 mg DAILY PO 09/01/17 09:00 10/01/17 08:59 09/01/17 07:42 20 MG Metoprolol Succinate (Toprol Xl Tab) 25 mg DAILY PO 09/01/17 09:00 10/01/17 08:59 09/01/17 07:43 25 MG Ipratropium [place] (Atrovent 0.02% 0.5MG/2.5ML Neb) 0.5 mg Q6R INH 09/01/17 03:00 10/01/17 02:59 09/01/17 14:18 0.5 MG Levalbuterol (Xopenex 1.25MG/ 0.5ML Neb) 1.25 mg Q6R INH 09/01/17 03:00 10/01/17 02:59 09/01/17 14:18 1.25 MG Clindamycin HCl (Cleocin Cap) 600 mg Q8 PO 09/01/17 06:00 09/07/17 21:59 09/01/17 15:14 600 MG Prednisone (PredniSONE TAB) 40 mg DAILY PO 09/01/17 09:00 09/06/17 08:59 09/01/17 08:39 40 MG Ferrous Sulfate (Feosol Tab) 325 mg QAM PO 09/02/17 09:00 10/02/17 08:59 Enteral Nutritional Formula (Boost Plus Vanilla) 1 can BID PO 09/01/17 21:00 10/01/17 20:59
--- NOTE | 2017-09-01 17:41 | ECHOCARDIOGRAM REPORT ---
*NOTICE TO RECEIVING REPUBLICAN AGENCY This information is strictly Confidential and protected under [place] law. [place] law prohibits you from making any further disclosure of this information unless further disclosure is expressly permitted by the written consent of the person to whom it pertains or is authorized by law. A general authorization for the release of medical or other information is not sufficient for this purpose. Hospital accepts no responsibility if the information is made available to any other person, INCLUDING THE PATIENT. Interpretation Summary * Name: BRITANY COSTELLO Study Date: 09/01/2017 06:36 AM BP: 121/65 mmHg * Patient Location: C.2T\S\S241\S\2 HR: 68 * : 1955 (M/d/yyyy) Gender: Male Height: 66 in * Age: 61 yrs Ethnicity: [place] Weight: 115 lb * Ordering Physician: Molina Larson * Referring Physician: Self, Referred * Performed By: Stephany Lang RCS * * Reason For Study: SOB / PNEUMONIA / SEPSIS * BSA: 1.6 m2 * -- Conclusions -- * There is mild concentric left ventricular hypertrophy. * The left ventricular wall motion is normal. * The LV Ejection Fraction = 60-65%. * There is a bi-leaflet ([employer]) aortic mechanical prosthesis with normal function. * There is a bi-leaflet ([employer]) mechanical prosthesis with normal function. Procedure Details * A complete two-dimensional transthoracic echocardiogram was performed (2D, M-mode, Doppler and color flow Doppler). Left Ventricle * The left ventricle is normal in size. * There is mild concentric left ventricular hypertrophy. * Left ventricular systolic function is normal. * Ejection Fraction = 60-65%. * The left ventricular wall motion is normal. Right Ventricle * The right ventricle is normal size. * The right ventricular systolic function is normal as assessed by tricuspid annular plane systolic excursion (TAPSE) (normal >1.5 cm). Atria * The left atrial size is normal. * Right atrial size is normal. * There is no evidence of atrial septal defect, but resolution does not allow assessment for a patent foramen ovale. Mitral Valve * There is no mitral valve stenosis. * There is a bi-leaflet ([employer]) mechanical prosthesis. * Mitral valve prosthetic regurgitation is not assessed due to acoustic shadowing from the prosthesis. The mitral valve prosthesis systolic gradients are normal for this type prosthesis. Tricuspid Valve * The tricuspid valve is normal. * There is no tricuspid stenosis. * There is mild tricuspid regurgitation. Aortic Valve * There is no significant aortic regurgitation. * There is a bi-leaflet ([employer]) aortic mechanical prosthesis. * The gradient is normal for this prosthetic aortic valve. Pulmonic Valve * The pulmonary valve is not well seen, but the Doppler examination is normal without significant regurgitation or stenosis. Great Vessels * The aortic root and proximal ascending aorta are normal sized. Pericardium/Pleural * There is no pericardial effusion. Great Vessels * Normal inferior vena cava diameter and respiratory variation suggests normal central venous pressure. Left Ventricular Diastolic Function * Grade I diastolic dysfunction, (abnormal relaxation pattern). MMode 2D Measurements and Calculations IVSd 1.1 cm IVSs 1.6 cm LVIDd 4.0 cm LVIDs 2.3 cm LVPWd 1.5 cm LVPWs 1.7 cm IVS/LVPW 0.71 FS 41.5 % EDV(Teich) 70.0 ml ESV(Teich) 18.9 ml EF(Teich) 73.0 % EDV(cubed) 64.0 ml ESV(cubed) 12.8 ml EF(cubed) 80.0 % % IVS thick 48.5 % % LVPW thick 7.8 % LV mass(C)d 189.9 grams LV mass(C)dI 120.1 grams/m\S\2 LV mass(C)s 137.6 grams LV mass(C)sI 87.1 grams/m\S\2 SV(Teich) 51.1 ml SI(Teich) 32.3 ml/m\S\2 SV(cubed) 51.2 ml SI(cubed) 32.4 ml/m\S\2 Ao root diam 2.5 cm Ao root area 4.9 cm\S\2 LA dimension 3.7 cm LA/Ao 1.5 LVOT diam 1.7 cm LVOT area 2.3 cm\S\2 LVAd ap4 31.9 cm\S\2 LVLd ap4 8.7 cm EDV(MOD-sp4) 96.7 ml EDV(sp4-el) 99.2 ml LVAs ap4 19.5 cm\S\2 LVLs ap4 7.9 cm ESV(MOD-sp4) 38.5 ml ESV(sp4-el) 41.0 ml EF(MOD-sp4) 60.2 % EF(sp4-el) 58.6 % LVAd ap2 31.4 cm\S\2 LVLd ap2 8.9 cm EDV(MOD-sp2) 89.0 ml EDV(sp2-el) 93.5 ml LVAs ap2 19.8 cm\S\2 LVLs ap2 8.0 cm ESV(MOD-sp2) 40.2 ml ESV(sp2-el) 41.4 ml EF(MOD-sp2) 54.8 % EF(sp2-el) 55.7 % LVLd %diff 2.4 % EDV(MOD-bp) 92.7 ml LVLs %diff 1.7 % ESV(MOD-bp) 38.9 ml EF(MOD-bp) 58.0 % SV(MOD-sp4) 58.2 ml SI(MOD-sp4) 36.8 ml/m\S\2 SV(MOD-sp2) 48.8 ml SI(MOD-sp2) 30.9 ml/m\S\2 SV(MOD-bp) 53.7 ml SI(MOD-bp) 34.0 ml/m\S\2 SV(sp4-el) 58.2 ml SI(sp4-el) 36.8 ml/m\S\2 SV(sp2-el) 52.1 ml SI(sp2-el) 33.0 ml/m\S\2 Doppler Measurements and Calculations MV E max ran 143.4 cm/sec MV A max ran 75.5 cm/sec MV E/A 1.9 MV P1/2t max ran 128.3 cm/sec MV P1/2t 68.4 msec MVA(P1/2t) 3.2 cm\S\2 MV dec slope 549.8 cm/sec\S\2 MV dec time 0.22 sec Ao V2 max 281.5 cm/sec Ao max PG 31.7 mmHg Ao max PG (full) 29.3 mmHg MALACHI(V,A) 0.64 cm\S\2 MALACHI(V,D) 0.64 cm\S\2 LV V1 max PG 2.4 mmHg LV V1 max 77.6 cm/sec TR max ran 296.0 cm/sec
[2017-09-01] MEDS ORDERED: BOOST VANILLA ONE (19:08)
[2017-09-01] MEDS: BOOST PLUS VANILLA PO SCH (19:10)
[2017-09-01] MEDS: ACETYLCYSTEINE 20% INHAL SOLN ***DISPENSED BY RESP. INH SCH (19:23)
[2017-09-02] VITALS (10 sets, daily range): BP systolic 90–108; BP diastolic 50–63; PULSE 64–94; TEMP 36.3–36.7; O2SAT 89–98
[2017-09-02] MEDS: IPRATROPIUM BROMIDE NEB SOLN 0.02% 2.5 ML VIAL INH SCH ×4 (01:55→19:25)
[2017-09-02] MEDS: LEVALBUTEROL 1.25MG/0.5ML NEB INH SCH ×4 (02:30→19:25)
[2017-09-02] MEDS: CLINDAMYCIN HCL 150 MG CAP PO SCH ×3 (05:47→21:35)
[2017-09-02] MEDS: LEVOTHYROXINE 100 MCG TAB PO SCH (05:47)
[2017-09-02 06:01] LABS: BASO % 0.1 %; BASO ABS # 0.01 K/uL (0-0.2); HEMATOCRIT 32.6 % (42-52); HEMOGLOBIN 10.2 g/dL (14.0-18.0); IG# 0.06 K/uL (0.00-0.02); LYMPH % 5.9 %; MEAN CELL VOLUME 97.9 fL (80-100); MEAN CORPUSCULAR HEMOGLOBIN 30.6 pg (25-34); MEAN CORPUSCULAR HGB CONC 31.3 g/dl (32-36); MEAN PLATELET VOLUME 9.9 fL (7.4-10.4); MONO % 5.4 %; MONO ABS # 0.82 K/uL (0.11-0.59); NEUT % 88.2 %; NEUT ABS # 13.46 K/uL (1.4-6.5); PLATELET COUNT 315 K/uL (130-400); RED CELL DISTRIBUTION WIDTH CV 14.1 % (11.5-14.5); RED CELL DISTRIBUTION WIDTH SD 50.8 fL (36.4-46.3); WHITE BLOOD COUNT 15.25 K/uL (4.8-10.8)
[2017-09-02 06:38] LABS: CALCIUM 8.6 mg/dl (8.5-10.1); CREATININE 0.75 mg/dl (0.60-1.40); POTASSIUM 3.7 mmol/L (3.5-5.1)
[2017-09-02] MEDS: ACETYLCYSTEINE 20% INHAL SOLN ***DISPENSED BY RESP. INH SCH ×2 (07:44→19:25)
[2017-09-02] MEDS ORDERED: PHYTONADIONE 5 MG TAB PO ONE (08:30)
[2017-09-02] MEDS: METOPROLOL SUCC 25MG EXT REL TAB PO SCH (08:47)
[2017-09-02] MEDS: ASPIRIN 81 MG ECTAB PO SCH (09:00)
[2017-09-02] MEDS: FERROUS SULFATE 325 MG TAB PO SCH (09:01)
[2017-09-02] MEDS: ATORVASTATIN 10 MG TAB PO SCH (09:01)
[2017-09-02] MEDS: FAMOTIDINE 20 MG TAB PO SCH (09:01)
[2017-09-02] MEDS: BOOST PLUS VANILLA PO SCH ×2 (09:18→20:38)
[2017-09-02 09:26] LABS: INR 9.9 (0.9-1.1)
--- NOTE | 2017-09-02 11:53 | Pulmonology Progress Note ---
Pulmonary Progress Note Date of Service Sep 02, 2017. Attending Dr. Jason (Dr. Martin) Subjective Patient seen and examined at bedside. He states that his cough is still present. He feels a little bit less short of breath today. He denies any chest pain. Objective Vital signs reviewed. Blood pressure 90/58 to 95/53, pulse 64-75, respiratory rate 16-18, pulse oximetry 95-98 on 3-4 L/m nasal cannula. His cumulative balance is -525 mL Gen.: Awake alert oriented 3, no acute distress, patient is cachectic. CVS: S1-S2, regular rate and rhythm Lungs: diminished breath sounds bilaterally. Abdomen: Soft, nontender, nondistended, bowel sounds positive Extremities: no edema, no cyanosis, no clubbing Labs reviewed. Imaging reviewed. Medications reviewed. White blood cell count 15.25, hemoglobin 10.2, platelet count 315. CO2 35, BUN 35, creatinine 0.75 Sputum culture from 08/31/2017-pinpoint growth Blood cultures from 08/31/2017-no growth to date Assessment & Plan Acute on chronic hypoxemic hypercapnic respiratory failure COPD exacerbation secondary to pneumonia History of vocal cord paralysis Chronic aspiration and mucous plugging Mr. 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 Patient now presents with worsening shortness of breath and dyspnea on exertion he failed outpatient treatment with prednisone and Levaquin. He was seen by speech and swallow who recommended nothing by mouth however patient refused. Recommendations Continue his supplemental oxygen to maintain SaO2 between 88-92% Use BiPAP when necessary. Recommend aggressive pulmonary toilet with Mucomyst, flutter valve and chest PT. Continue with chest vest for percussive therapy. Continue with broad-spectrum antibiotics for at least 5-7 days. Follow-up sputum cultures. Blood cultures show no growth to date Continue IV corticosteroids another day and likely switch over to prednisone tomorrow Encourage out of bed to chair as well as PT and OT therapy as tolerated. Patient should follow in outpatient clinic with [facility] within 1-2 weeks post hospital discharge. I appreciate the consult. Please contact with any further questions or concerns. Data Medications: Current Inpatient Medications Medications (Trade) Dose Ordered Sig/Tony Route Start Time Stop Time Status Last Admin Dose Admin Clindamycin Phosphate (Consult) 1 ea UD PRN N/A 08/31/17 21:15 09/30/17 21:14 Acetaminophen (Tylenol Tab) 650 mg Q4H PRN PO 08/31/17 20:45 09/30/17 20:44 Aspirin (Ecotrin Tab) 81 mg DAILY PO 09/01/17 09:00 10/01/17 08:59 09/01/17 07:42 81 MG Atorvastatin Calcium (Lipitor Tab) 10 mg DAILY PO 09/01/17 09:00 10/01/17 08:59 09/02/17 09:01 10 MG Famotidine (Pepcid Tab) 20 mg QAM PO 09/01/17 09:00 10/01/17 08:59 09/02/17 09:01 20 MG Levothyroxine Sodium (Synthroid Tab) 100 mcg DAILYBB PO 09/01/17 06:00 10/01/17 05:59 09/02/17 05:47 100 MCG Lisinopril (Zestril Tab) 20 mg DAILY PO 09/01/17 09:00 10/01/17 08:59 Future Hold 09/01/17 07:42 20 MG Metoprolol Succinate (Toprol Xl Tab) 25 mg DAILY PO 09/01/17 09:00 10/01/17 08:59 09/01/17 07:43 25 MG Ipratropium [place] (Atrovent 0.02% 0.5MG/2.5ML Neb) 0.5 mg Q6R INH 09/01/17 03:00 10/01/17 02:59 09/02/17 07:43 0.5 MG Levalbuterol (Xopenex 1.25MG/ 0.5ML Neb) 1.25 mg Q6R INH 09/01/17 03:00 10/01/17 02:59 09/02/17 07:43 1.25 MG Clindamycin HCl (Cleocin Cap) 600 mg Q8 PO 09/01/17 06:00 09/07/17 21:59 09/02/17 05:47 600 MG Prednisone (PredniSONE TAB) 40 mg DAILY PO 09/01/17 09:00 09/06/17 08:59 09/02/17 09:00 40 MG Ferrous Sulfate (Feosol Tab) 325 mg QAM PO 09/02/17 09:00 10/02/17 08:59 09/02/17 09:01 325 MG Enteral Nutritional Formula (Boost Plus Vanilla) 1 can BID PO 09/01/17 21:00 10/01/17 20:59 09/02/17 09:18 1 CAN Acetylcysteine (Mucomyst 20% Inh Soln) 3 ml BIDR INH 09/01/17 20:00 10/01/17 19:59 09/02/17 07:44 3 ML Vital Signs: Date Time Temp Pulse Resp B/P (MAP) Pulse Ox O2 Delivery O2 Flow Rate FiO2 09/02/17 08:12 36.5 75 16 93/50 (64) 95 Nasal Cannula 3.0 09/02/17 08:00 Nasal Cannula 3.0 09/02/17 07:44 70 16 95 Nasal Cannula 3.0 09/02/17 04:11 Nasal Cannula 3.0 09/02/17 03:44 36.5 73 18 95/53 (67) 95 09/02/17 01:55 67 16 98 Nasal Cannula 4.0 09/02/17 00:12 Nasal Cannula 3.0 09/02/17 00:02 36.5 64 18 90/58 (69) 98 3.0 09/01/17 20:00 Nasal Cannula 3.0 09/01/17 19:37 36.7 74 18 82/45 (57) 99 Nasal Cannula 3.0 09/01/17 19:23 65 16 94 Nasal Cannula 4.0 09/01/17 16:42 71 85/42 (56) 09/01/17 16:42 69 89/41 (57) 09/01/17 16:00 Nasal Cannula 3.0 09/01/17 15:13 36.9 71 18 87/47 (60) 91 Nasal Cannula 2.5 09/01/17 14:18 71 16 96 Nasal Cannula 4.0 09/01/17 12:00 Nasal Cannula 3.0 09/01/17 11:46 36.6 70 20 97/59 (72) 94 4.0 Laboratory Results: Last 24 Hours Test 09/02/17 05:45 White Blood Count 15.25 K/uL Red Blood Count 3.33 M/uL Hemoglobin 10.2 g/dL Hematocrit 32.6 % Mean Corpuscular Volume 97.9 fL Mean Corpuscular Hemoglobin 30.6 pg Mean Corpuscular Hemoglobin Concent 31.3 g/dl Platelet Count 315 K/uL Mean Platelet Volume 9.9 fL Neutrophils (%) (Auto) 88.2 % Lymphocytes (%) (Auto) 5.9 % Monocytes (%) (Auto) 5.4 % Eosinophils (%) (Auto) 0.0 % Basophils (%) (Auto) 0.1 % Neutrophils # (Auto) 13.46 K/uL Lymphocytes # (Auto) 0.90 K/uL Monocytes # (Auto) 0.82 K/uL Eosinophils # (Auto) 0.00 K/uL Basophils # (Auto) 0.01 K/uL RDW Standard Deviation 50.8 fL RDW Coefficient of Variation 14.1 % Immature Granulocyte % (Auto) 0.4 % Immature Granulocyte # (Auto) 0.06 K/uL Prothrombin Time 99.2 SECONDS Prothromb Time International Ratio 9.9 Sodium Level 136 mmol/L Potassium Level 3.7 mmol/L Chloride Level 97 mmol/L Carbon Dioxide Level 35 mmol/L Anion Gap 4.0 mmol/L Blood Urea Nitrogen 35 mg/dl Creatinine 0.75 mg/dl Est Creatinine Clear Calc Drug Dose 75.0 ml/min Estimated GFR () 116.4 Estimated GFR (Non- 100.4 BUN/Creatinine Ratio 47.0 Random Glucose 164 mg/dl Calcium Level 8.6 mg/dl
--- NOTE | 2017-09-02 18:50 | Progress Note ---
Medicine Progress Note Date & Time of Visit: Sep 02, 2017 at 18:42. Subjective Pt was seen and examined Lying in bed with no distress Pt said that he feels better today He said that he continue to cough out some phegm Denies any chest pain, palpitation, dizziness Objective Last 8 Hrs Date Time Temp Pulse Resp B/P (MAP) Pulse Ox O2 Delivery O2 Flow Rate FiO2 09/02/17 16:00 Nasal Cannula 4.0 09/02/17 15:34 36.7 94 20 103/57 (72) 97 Nasal Cannula 4.0 09/02/17 14:21 80 16 92 Nasal Cannula 3.0 09/02/17 12:08 36.5 88 16 102/63 (76) 89 Nasal Cannula 4.0 09/02/17 12:00 Nasal Cannula 2.0 Physical Exam: General- No acute distress Head- atraumatic Eyes- PERRL, EOMI ENT- oropharynx clear Neck- supple, no JVD Lungs- mild coarse BS Heart- regular rhythm Abdomen- normal bowel sounds, soft Extremities- no calf tenderness Neuro- alert, oriented x 3; PERRL, EOMI Skin- warm & dry Laboratory Results: Last 24 Hours Test 09/02/17 05:45 White Blood Count 15.25 K/uL Red Blood Count 3.33 M/uL Hemoglobin 10.2 g/dL Hematocrit 32.6 % Mean Corpuscular Volume 97.9 fL Mean Corpuscular Hemoglobin 30.6 pg Mean Corpuscular Hemoglobin Concent 31.3 g/dl Platelet Count 315 K/uL Mean Platelet Volume 9.9 fL Neutrophils (%) (Auto) 88.2 % Lymphocytes (%) (Auto) 5.9 % Monocytes (%) (Auto) 5.4 % Eosinophils (%) (Auto) 0.0 % Basophils (%) (Auto) 0.1 % Neutrophils # (Auto) 13.46 K/uL Lymphocytes # (Auto) 0.90 K/uL Monocytes # (Auto) 0.82 K/uL Eosinophils # (Auto) 0.00 K/uL Basophils # (Auto) 0.01 K/uL RDW Standard Deviation 50.8 fL RDW Coefficient of Variation 14.1 % Immature Granulocyte % (Auto) 0.4 % Immature Granulocyte # (Auto) 0.06 K/uL Prothrombin Time 99.2 SECONDS Prothromb Time International Ratio 9.9 Sodium Level 136 mmol/L Potassium Level 3.7 mmol/L Chloride Level 97 mmol/L Carbon Dioxide Level 35 mmol/L Anion Gap 4.0 mmol/L Blood Urea Nitrogen 35 mg/dl Creatinine 0.75 mg/dl Est Creatinine Clear Calc Drug Dose 75.0 ml/min Estimated GFR () 116.4 Estimated GFR (Non- 100.4 BUN/Creatinine Ratio 47.0 Random Glucose 164 mg/dl Calcium Level 8.6 mg/dl Assessment & Plan Acute on chronic hypoxemic hypercapnic respiratory failure Possible 2nd to COPD exacerbation due to B/L PNA Possible related to aspiration CXR showed Persistent bilateral airspace opacities superimposed on chronic lung disease ABG on admission showed PCO2 52 Continue supplement oxygen, chest PT and mycomyst On clindamycin IV Continue solumedrol and DuoNeb treatment Blood cx and sputum cx pending Speech consulted recommended strict NPO but pt choose to eat Refused any tube feeding Diet changed to dental soft diet, moist, thin liquids 09/02 clinically improved Continue IV solumedrol Will change to PO prednisone tomorrow Continue neb treatment, chest PT and Mucomyst HX RHEUMATIC VALVULAR DISEASE S/P AORTIC AND MITRAL VALVE REPLACEMENT Hold coumadin for today INR 9.9 Supra therapeutic INR INR 9.9 Coumadin has been on hold Received Vit K Monitor INR HYPOTHYROIDISM TSH WNL continue levothyroxine ANEMIA Hgb 10.2 Low iron level Continue iron supplement Monitor CBC HYPOKALEMIA Stable monitor BMP HTN BP in the low side Continue holding lisinopril Continue monitor BP Monitor BP DVT PROPHYLAXIS Continue Holding coumadin INR 9.9 DISPOSITION Continue monitor in tele Current Inpatient Medications: Current Inpatient Medications Medications (Trade) Dose Ordered Sig/Tony Route Start Time Stop Time Status Last Admin Dose Admin Clindamycin Phosphate (Consult) 1 ea UD PRN N/A 08/31/17 21:15 09/30/17 21:14 Acetaminophen (Tylenol Tab) 650 mg Q4H PRN PO 08/31/17 20:45 09/30/17 20:44 Aspirin (Ecotrin Tab) 81 mg DAILY PO 09/01/17 09:00 10/01/17 08:59 09/01/17 07:42 81 MG Atorvastatin Calcium (Lipitor Tab) 10 mg DAILY PO 09/01/17 09:00 10/01/17 08:59 09/02/17 09:01 10 MG Famotidine (Pepcid Tab) 20 mg QAM PO 09/01/17 09:00 10/01/17 08:59 09/02/17 09:01 20 MG Levothyroxine Sodium (Synthroid Tab) 100 mcg DAILYBB PO 09/01/17 06:00 10/01/17 05:59 09/02/17 05:47 100 MCG Lisinopril (Zestril Tab) 20 mg DAILY PO 09/01/17 09:00 10/01/17 08:59 Future Hold 09/01/17 07:42 20 MG Metoprolol Succinate (Toprol Xl Tab) 25 mg DAILY PO 09/01/17 09:00 10/01/17 08:59 09/01/17 07:43 25 MG Ipratropium [place] (Atrovent 0.02% 0.5MG/2.5ML Neb) 0.5 mg Q6R INH 09/01/17 03:00 10/01/17 02:59 09/02/17 14:21 0.5 MG Levalbuterol (Xopenex 1.25MG/ 0.5ML Neb) 1.25 mg Q6R INH 09/01/17 03:00 10/01/17 02:59 09/02/17 14:21 1.25 MG Clindamycin HCl (Cleocin Cap) 600 mg Q8 PO 09/01/17 06:00 09/07/17 21:59 09/02/17 14:57 600 MG Prednisone (PredniSONE TAB) 40 mg DAILY PO 09/01/17 09:00 09/06/17 08:59 09/02/17 09:00 40 MG Ferrous Sulfate (Feosol Tab) 325 mg QAM PO 09/02/17 09:00 10/02/17 08:59 09/02/17 09:01 325 MG Enteral Nutritional Formula (Boost Plus Vanilla) 1 can BID PO 09/01/17 21:00 10/01/17 20:59 09/02/17 09:18 1 CAN Acetylcysteine (Mucomyst 20% Inh Soln) 3 ml BIDR INH 09/01/17 20:00 10/01/17 19:59 09/02/17 07:44 3 ML
[2017-09-03] VITALS (8 sets, daily range): BP systolic 104–111; BP diastolic 52–61; PULSE 70–83; TEMP 36.5–36.7; O2SAT 87–98
[2017-09-03] MEDS: LEVALBUTEROL 1.25MG/0.5ML NEB INH SCH ×3 (01:50→14:00)
[2017-09-03] MEDS: IPRATROPIUM BROMIDE NEB SOLN 0.02% 2.5 ML VIAL INH SCH ×3 (01:50→14:00)
[2017-09-03] MEDS: LEVOTHYROXINE 100 MCG TAB PO SCH (05:53)
[2017-09-03] MEDS: CLINDAMYCIN HCL 150 MG CAP PO SCH ×2 (05:53→14:53)
[2017-09-03 06:02] LABS: BASO % 0.2 %; BASO ABS # 0.02 K/uL (0-0.2); HEMATOCRIT 31.3 % (42-52); HEMOGLOBIN 9.8 g/dL (14.0-18.0); IG# 0.02 K/uL (0.00-0.02); LYMPH % 13.9 %; LYMPH ABS # 1.12 K/uL (1.2-3.4); MEAN CELL VOLUME 97.8 fL (80-100); MEAN CORPUSCULAR HEMOGLOBIN 30.6 pg (25-34); MEAN CORPUSCULAR HGB CONC 31.3 g/dl (32-36); MEAN PLATELET VOLUME 9.5 fL (7.4-10.4); MONO % 12.2 %; MONO ABS # 0.98 K/uL (0.11-0.59); NEUT % 73.5 %; NEUT ABS # 5.92 K/uL (1.4-6.5); PLATELET COUNT 292 K/uL (130-400); RED CELL DISTRIBUTION WIDTH SD 50.4 fL (36.4-46.3); WHITE BLOOD COUNT 8.06 K/uL (4.8-10.8)
[2017-09-03 06:18] LABS: INR 1.8 (0.9-1.1)
[2017-09-03 06:40] LABS: CALCIUM 8.4 mg/dl (8.5-10.1); CREATININE 0.45 mg/dl (0.60-1.40)
[2017-09-03] MEDS: ACETYLCYSTEINE 20% INHAL SOLN ***DISPENSED BY RESP. INH SCH (07:38)
[2017-09-03] MEDS: METOPROLOL SUCC 25MG EXT REL TAB PO SCH (09:16)
[2017-09-03] MEDS: FAMOTIDINE 20 MG TAB PO SCH (09:16)
[2017-09-03] MEDS: ATORVASTATIN 10 MG TAB PO SCH (09:16)
[2017-09-03] MEDS: BOOST PLUS VANILLA PO SCH (09:16)
[2017-09-03] MEDS: ASPIRIN 81 MG ECTAB PO SCH (09:16)
[2017-09-03] MEDS: FERROUS SULFATE 325 MG TAB PO SCH (09:17)
--- NOTE | 2017-09-03 12:22 | Pulmonology Progress Note ---
Pulmonary Progress Note Date of Service Sep 03, 2017. Attending Dr. Martin Subjective Patient seen and examined. He is feeling much better. Still has cough which is chronic. Shortness of breath is improving. He denies any chest pain. Objective Vital signs reviewed. Blood pressure 107/52-111/59, pulse 70-75, respiratory rate 16-18, pulse oximetry 95-98 on 3 L/m nasal cannula. His cumulative balance is 150 mL positive. Gen.: Awake alert oriented 3, no acute distress, patient is cachectic. CVS: S1-S2, regular rate and rhythm Lungs: diminished breath sounds bilaterally. Abdomen: Soft, nontender, nondistended, bowel sounds positive Extremities: no edema, no cyanosis, no clubbing Labs reviewed. Imaging reviewed. Medications reviewed. White blood cell count 8 down from 15.25, hemoglobin 9.8, platelet count 292. CO2 35 up to 39, BUN 21, creatinine 0.45. INR 1.8 today Sputum culture from 08/31/2017-strep pneumo sensitive to penicillin Blood cultures from 08/31/2017-no growth to date Assessment & Plan Acute on chronic hypoxemic hypercapnic respiratory failure COPD exacerbation secondary to pneumonia History of vocal cord paralysis Chronic aspiration and mucous plugging Mr. 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 Patient now presents with worsening shortness of breath and dyspnea on exertion he failed outpatient treatment with prednisone and Levaquin. He was seen by speech and swallow who recommended nothing by mouth however patient refused. Patient is clinically improving from a respiratory standpoint. Sputum cultures growing strep pneumoniae. Recommendations Continue his supplemental oxygen to maintain SaO2 between 88-92% Use BiPAP when necessary. Recommend aggressive pulmonary toilet with Mucomyst, flutter valve and chest PT. Continue with chest vest for percussive therapy. Continue with Clindamycin for at least 5-7 days. I would switch over to prednisone 40 mg today Encourage out of bed to chair as well as PT and OT therapy as tolerated. I will signoff case today. Please call pulmonary if you've any further questions or concerns. Patient should follow in outpatient clinic with [facility] within 1-2 weeks post hospital discharge. I appreciate the consult. Please contact with any further questions or concerns. Data Medications: Current Inpatient Medications Medications (Trade) Dose Ordered Sig/Tony Route Start Time Stop Time Status Last Admin Dose Admin Clindamycin Phosphate (Consult) 1 ea UD PRN N/A 08/31/17 21:15 09/30/17 21:14 Acetaminophen (Tylenol Tab) 650 mg Q4H PRN PO 08/31/17 20:45 09/30/17 20:44 Aspirin (Ecotrin Tab) 81 mg DAILY PO 09/01/17 09:00 10/01/17 08:59 09/03/17 09:16 81 MG Atorvastatin Calcium (Lipitor Tab) 10 mg DAILY PO 09/01/17 09:00 10/01/17 08:59 09/03/17 09:16 10 MG Famotidine (Pepcid Tab) 20 mg QAM PO 09/01/17 09:00 10/01/17 08:59 09/03/17 09:16 20 MG Levothyroxine Sodium (Synthroid Tab) 100 mcg DAILYBB PO 09/01/17 06:00 10/01/17 05:59 09/03/17 05:53 100 MCG Lisinopril (Zestril Tab) 20 mg DAILY PO 09/01/17 09:00 10/01/17 08:59 Future Hold 09/01/17 07:42 20 MG Metoprolol Succinate (Toprol Xl Tab) 25 mg DAILY PO 09/01/17 09:00 10/01/17 08:59 09/03/17 09:16 25 MG Ipratropium [place] (Atrovent 0.02% 0.5MG/2.5ML Neb) 0.5 mg Q6R INH 09/01/17 03:00 10/01/17 02:59 09/03/17 07:38 0.5 MG Levalbuterol (Xopenex 1.25MG/ 0.5ML Neb) 1.25 mg Q6R INH 09/01/17 03:00 10/01/17 02:59 09/03/17 07:38 1.25 MG Clindamycin HCl (Cleocin Cap) 600 mg Q8 PO 09/01/17 06:00 09/07/17 21:59 09/03/17 05:53 600 MG Prednisone (PredniSONE TAB) 40 mg DAILY PO 09/01/17 09:00 09/06/17 08:59 09/03/17 09:16 40 MG Ferrous Sulfate (Feosol Tab) 325 mg QAM PO 09/02/17 09:00 10/02/17 08:59 09/03/17 09:17 325 MG Enteral Nutritional Formula (Boost Plus Vanilla) 1 can BID PO 09/01/17 21:00 10/01/17 20:59 09/03/17 09:16 1 CAN Acetylcysteine (Mucomyst 20% Inh Soln) 3 ml BIDR INH 09/01/17 20:00 10/01/17 19:59 09/03/17 07:38 3 ML Vital Signs: Date Time Temp Pulse Resp B/P (MAP) Pulse Ox O2 Delivery O2 Flow Rate FiO2 09/03/17 08:09 36.7 75 18 107/52 (70) 95 Nasal Cannula 3.0 09/03/17 08:00 Nasal Cannula 3.0 09/03/17 07:39 71 16 97 Nasal Cannula 3.0 09/03/17 04:00 Nasal Cannula 3.0 09/03/17 03:23 36.5 72 18 111/59 (76) 96 09/03/17 01:50 70 16 98 Nasal Cannula 3.0 09/03/17 00:38 36.7 74 18 107/61 (76) 97 3.0 09/02/17 23:59 Nasal Cannula 3.0 09/02/17 20:00 Nasal Cannula 3.0 09/02/17 19:26 90 16 96 Nasal Cannula 3.0 09/02/17 19:24 36.3 78 20 108/55 (72) 97 Nasal Cannula 3.0 09/02/17 16:00 Nasal Cannula 4.0 09/02/17 15:34 36.7 94 20 103/57 (72) 97 Nasal Cannula 4.0 09/02/17 14:21 80 16 92 Nasal Cannula 3.0 Laboratory Results: Last 24 Hours Test 09/02/17 19:33 09/03/17 05:48 Prothrombin Time 31.1 SECONDS 18.8 SECONDS Prothromb Time International Ratio 3.0 1.8 White Blood Count 8.06 K/uL Red Blood Count 3.20 M/uL Hemoglobin 9.8 g/dL Hematocrit 31.3 % Mean Corpuscular Volume 97.8 fL Mean Corpuscular Hemoglobin 30.6 pg Mean Corpuscular Hemoglobin Concent 31.3 g/dl Platelet Count 292 K/uL Mean Platelet Volume 9.5 fL Neutrophils (%) (Auto) 73.5 % Lymphocytes (%) (Auto) 13.9 % Monocytes (%) (Auto) 12.2 % Eosinophils (%) (Auto) 0.0 % Basophils (%) (Auto) 0.2 % Neutrophils # (Auto) 5.92 K/uL Lymphocytes # (Auto) 1.12 K/uL Monocytes # (Auto) 0.98 K/uL Eosinophils # (Auto) 0.00 K/uL Basophils # (Auto) 0.02 K/uL RDW Standard Deviation 50.4 fL RDW Coefficient of Variation 14.0 % Immature Granulocyte % (Auto) 0.2 % Immature Granulocyte # (Auto) 0.02 K/uL Sodium Level 140 mmol/L Potassium Level 4.0 mmol/L Chloride Level 101 mmol/L Carbon Dioxide Level 39 mmol/L Anion Gap 0.0 mmol/L Blood Urea Nitrogen 21 mg/dl Creatinine 0.45 mg/dl Est Creatinine Clear Calc Drug Dose 127.3 ml/min Estimated GFR () 143.6 Estimated GFR (Non- 123.9 BUN/Creatinine Ratio 46.6 Random Glucose 110 mg/dl Calcium Level 8.4 mg/dl
--- NOTE | 2017-09-03 14:55 | Progress Note ---
Medicine Progress Note Date & Time of Visit: Sep 03, 2017 at 14:41. Subjective Pt was seen and examined Lying in bed with no distress Pt said that he feels much better He said that his breathing improved He said that the cough seems to get a little better Denies any chest pain, palpitation, dizziness Objective Last 8 Hrs Date Time Temp Pulse Resp B/P (MAP) Pulse Ox O2 Delivery O2 Flow Rate FiO2 09/03/17 12:15 36.6 83 18 104/57 (73) 87 Nasal Cannula 09/03/17 12:00 Nasal Cannula 3.0 09/03/17 08:09 36.7 75 18 107/52 (70) 95 Nasal Cannula 3.0 09/03/17 08:00 Nasal Cannula 3.0 09/03/17 07:39 71 16 97 Nasal Cannula 3.0 Physical Exam: General- No acute distress Head- atraumatic Eyes- PERRL, EOMI ENT- oropharynx clear Neck- supple, no JVD Lungs- decrease BS Heart- regular rhythm Abdomen- normal bowel sounds, soft Extremities- no calf tenderness Neuro- alert, oriented x 3; PERRL, EOMI Skin- warm & dry Laboratory Results: Last 24 Hours Test 09/02/17 19:33 09/03/17 05:48 Prothrombin Time 31.1 SECONDS 18.8 SECONDS Prothromb Time International Ratio 3.0 1.8 White Blood Count 8.06 K/uL Red Blood Count 3.20 M/uL Hemoglobin 9.8 g/dL Hematocrit 31.3 % Mean Corpuscular Volume 97.8 fL Mean Corpuscular Hemoglobin 30.6 pg Mean Corpuscular Hemoglobin Concent 31.3 g/dl Platelet Count 292 K/uL Mean Platelet Volume 9.5 fL Neutrophils (%) (Auto) 73.5 % Lymphocytes (%) (Auto) 13.9 % Monocytes (%) (Auto) 12.2 % Eosinophils (%) (Auto) 0.0 % Basophils (%) (Auto) 0.2 % Neutrophils # (Auto) 5.92 K/uL Lymphocytes # (Auto) 1.12 K/uL Monocytes # (Auto) 0.98 K/uL Eosinophils # (Auto) 0.00 K/uL Basophils # (Auto) 0.02 K/uL RDW Standard Deviation 50.4 fL RDW Coefficient of Variation 14.0 % Immature Granulocyte % (Auto) 0.2 % Immature Granulocyte # (Auto) 0.02 K/uL Sodium Level 140 mmol/L Potassium Level 4.0 mmol/L Chloride Level 101 mmol/L Carbon Dioxide Level 39 mmol/L Anion Gap 0.0 mmol/L Blood Urea Nitrogen 21 mg/dl Creatinine 0.45 mg/dl Est Creatinine Clear Calc Drug Dose 127.3 ml/min Estimated GFR () 143.6 Estimated GFR (Non- 123.9 BUN/Creatinine Ratio 46.6 Random Glucose 110 mg/dl Calcium Level 8.4 mg/dl Assessment & Plan Acute on chronic hypoxemic hypercapnic respiratory failure Possible 2nd to COPD exacerbation due to B/L PNA mostly related to aspiration CXR showed Persistent bilateral airspace opacities superimposed on chronic lung disease ABG on admission showed PCO2 52 Continue supplement oxygen, chest PT and mycomyst On clindamycin IV Continue solumedrol and DuoNeb treatment Blood cx and sputum cx pending Speech consulted recommended strict NPO but pt choose to eat Refused any tube feeding Diet changed to dental soft diet, moist, thin liquids 09/03 clinically improved On IV solumedrol will discharge on PO prednisone Continue neb treatment, chest PT and Mucomyst Pt understand that he is at risk for aspiration whenever he eats by mouth Refused tube feeding HX RHEUMATIC VALVULAR DISEASE S/P AORTIC AND MITRAL VALVE REPLACEMENT will resume coumadin INR 1.8 today Supra therapeutic INR INR 9.9 , then decrease to 1.8 Coumadin was on hold vit K given yesterday INR 1.8 today Resume coumadin today Monitor INR HYPOTHYROIDISM TSH WNL continue levothyroxine ANEMIA Hgb 9.8 Low iron level Continue iron supplement Monitor CBC HYPOKALEMIA Stable monitor BMP HTN BP in the low side Continue holding lisinopril Continue monitor BP Monitor BP DVT PROPHYLAXIS resume coumadin INR 1.8 DISPOSITION discharge home today follow up with Dr. Nguyen on 09/07 @ 11AM Consultants: Pulmonary Current Inpatient Medications: Current Inpatient Medications Medications (Trade) Dose Ordered Sig/Tony Route Start Time Stop Time Status Last Admin Dose Admin Clindamycin Phosphate (Consult) 1 ea UD PRN N/A 08/31/17 21:15 09/30/17 21:14 Acetaminophen (Tylenol Tab) 650 mg Q4H PRN PO 08/31/17 20:45 09/30/17 20:44 Aspirin (Ecotrin Tab) 81 mg DAILY PO 09/01/17 09:00 10/01/17 08:59 09/03/17 09:16 81 MG Atorvastatin Calcium (Lipitor Tab) 10 mg DAILY PO 09/01/17 09:00 10/01/17 08:59 09/03/17 09:16 10 MG Famotidine (Pepcid Tab) 20 mg QAM PO 09/01/17 09:00 10/01/17 08:59 09/03/17 09:16 20 MG Levothyroxine Sodium (Synthroid Tab) 100 mcg DAILYBB PO 09/01/17 06:00 10/01/17 05:59 09/03/17 05:53 100 MCG Lisinopril (Zestril Tab) 20 mg DAILY PO 09/01/17 09:00 10/01/17 08:59 Future Hold 09/01/17 07:42 20 MG Metoprolol Succinate (Toprol Xl Tab) 25 mg DAILY PO 09/01/17 09:00 10/01/17 08:59 09/03/17 09:16 25 MG Ipratropium [place] (Atrovent 0.02% 0.5MG/2.5ML Neb) 0.5 mg Q6R INH 09/01/17 03:00 10/01/17 02:59 09/03/17 07:38 0.5 MG Levalbuterol (Xopenex 1.25MG/ 0.5ML Neb) 1.25 mg Q6R INH 09/01/17 03:00 10/01/17 02:59 09/03/17 07:38 1.25 MG Clindamycin HCl (Cleocin Cap) 600 mg Q8 PO 09/01/17 06:00 09/07/17 21:59 09/03/17 05:53 600 MG Prednisone (PredniSONE TAB) 40 mg DAILY PO 09/01/17 09:00 09/06/17 08:59 09/03/17 09:16 40 MG Ferrous Sulfate (Feosol Tab) 325 mg QAM PO 09/02/17 09:00 10/02/17 08:59 09/03/17 09:17 325 MG Enteral Nutritional Formula (Boost Plus Vanilla) 1 can BID PO 09/01/17 21:00 10/01/17 20:59 09/03/17 09:16 1 CAN Acetylcysteine (Mucomyst 20% Inh Soln) 3 ml BIDR INH 09/01/17 20:00 10/01/17 19:59 09/03/17 07:38 3 ML
[2017-09-03] MEDS ORDERED: MCMIN20ML INH (15:15)
[2017-09-03] MEDS ORDERED: PRD20 PO (15:15)
[2017-09-03] MEDS ORDERED: CLIN300C10 PO (15:15)
--- NOTE | 2017-09-03 15:24 | Discharge Instructions ---
Discharge Instructions Date of Service Sep 03, 2017. Admission Reason for Admission: Pneumonia, Sepsis Discharge Discharge Diagnosis / Problem: Acute on chronic hypoxemic hypercapnic respiratory failure , Elevated INR Discharge Goals Goal(s): Decrease discomfort, Improve function, Improve disease control Activity Recommendations Activity Limitations: resume your previous activity . Instructions / Follow-Up Instructions / Follow-Up Follow up with your primary care provider Dr. Nguyen on 09/07 @ 11 AM Please call your lung specialist to schedule follow up appointment Continue to use oxygen supplement Aspiration precaution Continue antibiotic with clindamycin Continue Coumadin Follow up with the coumadin clinic (INR 1.8) Check INR between 3 to 5 days Complete prednisone taper Fall precaution Current Hospital Diet Patient's current hospital diet: AHA Diet (Heart Healthy) Discharge Diet Recommended Diet: AHA Diet (Heart Healthy) Pending Studies Studies pending at discharge: no Medical Emergencies . Who to Call and When: Medical Emergencies: If at any time you feel your situation is an emergency, please call 911 immediately. . Non-Emergent Contact Non-Emergency issues call your: Primary Care Provider, Court Clerk Call Non-Emergent contact if: you have a fever, you have any medication questions . . "Provider Documentation" section prepared by Mary Bustos. . VTE Core Measure Inpt VTE Proph given/why not?: Warfarin (Coumadin)
[2017-09-03] MEDS ORDERED: ATRINS INH (15:44)
[2017-09-03] MEDS ORDERED: XPNINS1255 INH (15:44)
[2017-09-03] MEDS ORDERED: WARFARIN SOD 3 MG TAB PO SCH (16:00)
--- NOTE | 2017-09-09 09:40 | Discharge Summary ---
Discharge Summary Date of Service Sep 09, 2017. Discharge Summary Admission Date: Aug 31, 2017 at 19:16 Discharge Date: Sep 03, 2017 Discharge Disposition: Home with services Principal Diagnosis: Acute on chronic hypoxemic hypercapnic respiratory failure Secondary Diagnoses/Problems: HX RHEUMATIC VALVULAR DISEASE S/P AORTIC AND MITRAL VALVE REPLACEMENT Supra therapeutic INR HYPOTHYROIDISM HTN ANEMIA HYPOKALEMIA Procedures: [~ rep ct add3]] CHEST ONE VIEW PORTABLE CLINICAL HISTORY: Sepsis COMPARISON STUDY: 08/16/2017 FINDINGS: There are postsurgical changes of a midline sternotomy and by valvular replacement. The heart is mildly enlarged. There are small bilateral pleural effusions. There are persistent bilateral airspace opacities. The findings likely represent pneumonia superimposed on chronic lung disease, although asymmetric pulmonary edema superimposed on chronic lung disease could appear similar.[ IMPRESSION: Persistent bilateral airspace opacities superimposed on chronic lung disease. While likely representing a multifocal pneumonia, asymmetric pulmonary edema could appear similar. Electronically signed by: Quinton Booth M.D. 08/31/2017 5:16 PM Dictated Date/Time: 08/31/2017 5:14 PM The status of this report is Signed. Draft = Not yet reviewed or approved by Radiologist. Consultations: Pulmonary Medication Reconciliation New Medications: Acetylcysteine (Acetylcysteine) 1 Ml Soln 3 ML INH BIDR for 7 Days Clindamycin Hcl (Clindamycin Hcl) 300 Mg Cap 600 MG PO Q8 for 4 Days Ipratropium [place] (Ipratropium [place]) 0.5 Mg/2.5 Ml Nebu 0.5 MG INH Q6R PRN for SOB/Wheezing for 7 Days Levalbuterol (Levalbuterol) 1.25 Mg/0.5 Ml Nebu 1.25 MG INH Q6R PRN for SOB/Wheezing for 7 Days Prednisone (Prednisone) 20 Mg Tab 40 MG PO DAILY for 5 Days, #10 TAB Continued Medications: Acetaminophen (Tylenol) 325 Mg Tab 650 MG PO Q8 PRN for Pain, TAB Albuterol Sulfate (Albuterol Sulfate) 1 Pow Pow 1 INHA NEB DIRECTED PRN for SOB/Wheezing Albuterol Sulfate (Proventil Hfa) 108 Mcg/Act Aer 2 PUFF INH UD PRN for SORE THROAT Aspirin (Aspirin Ec) 81 Mg Tab 81 MG PO DAILY Atorvastatin (Lipitor) 10 Mg Tab 10 MG PO DAILY, TAB Famotidine (Famotidine) 20 Mg Tab 20 MG PO QAM Fluticasone Prop/Salmeterol (Advair Diskus 250-50 Mcg/Dose) 14 Puff/1 Inhaler Aerp 1 PUFF INH DAILY Home O2 Therapy (Oxygen) Gas 2 LITERS NA HS Levothyroxine Sodium (Levothyroxine Sodium) 100 Mcg Tab 100 MCG PO DAILY Lisinopril (Zestril) 20 Mg Tab 20 MG PO DAILY, 0 Refills Metoprolol Succinate (Metoprolol Succinate ER) 25 Mg Tabcr 25 MG PO DAILY, #90 Warfarin Sod (Jantoven) 2.5 Mg Tab 2.5 MG PO WK, TAB THURS Warfarin Sod (Jantoven) 2.5 Mg Tab 5 MG PO 4XWK, TAB SAT,SUN,MON,TUES,WED,FRI Admission Information HPI (per Admitting provider): Pt is 61 y/o M with PMH HTN, hypothyroidism, COPD on 2.5L O2 NC, 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 Pt reports increased cough of brown sputum and increased SOB and reports seen by pulm on 08/16/17 and started on levaquin 500mg x 7 days and prednisone. Pt states chokes on food and water but "knows how to cough it out" and doesn't feel that he aspirated. States finished meds and has been using duoneb TID without relief. [place] feverish couple days ago, didn't measure temperature. C/O some CP left sided chest with coughing initially and the states had constant ache past 3 days and felt like had to hold in his cough to avoid aggravating pain. Denies any CP currently. Sleeps propped up chronically. Follows with [facility] pulmonology. In past required bronchoscopy by Dr Oviedo. Hx a-fib after surgery, follows with [facility]. Denies diaphoresis, N/V/D/C, STONE, syncope, vision changes, neck pain, palpitations, hemoptysis, otalgia, rhinorrhea, abdominal pain, paresthesias, extremity weakness, extremity edema, rashes, urinary symptoms. In ER pt temp: 39.4, BP: 111/61, 96/61, pulse: 107, R: 32, O2 90% on 2L drops to 80's with ambulation. On non-rebreather in ER with sats low 90's. WBC: 21, pending lactic acid. pending blood cultures. CXR: persistent bilateral airspace opacities. Pt given 500ml NSS, duoneb tx, xopenex neb, Tylenol, cefepime. Physical Exam (per Admitting): General Appearance: + pertinent finding (chronic ill appearing, thin) Head: normocephalic, atraumatic Eyes: normal inspection, PERRL, EOMI, sclerae normal ENT: hearing grossly normal, pharynx normal, + pertinent finding (dry mucous membranes) Neck: supple, trachea midline Respiratory/Chest: chest non-tender, + decreased breath sounds (throughout, no rales noted, tachypneic) Cardiovascular: + tachycardia (rate 102, regular rhythm) Abdomen/GI: normal bowel sounds, non tender, soft Extremities/Musculoskelatal: no calf tenderness, normal capillary refill, no pedal edema, normal range of motion, non-tender Neurologic/Psych: alert, normal mood/affect, oriented x 3 Skin: warm/dry Hospital Course Acute on chronic hypoxemic hypercapnic respiratory failure Possible 2nd to COPD exacerbation due to B/L PNA mostly related to aspiration CXR showed Persistent bilateral airspace opacities superimposed on chronic lung disease ABG on admission showed PCO2 52 Continue supplement oxygen, chest PT and mycomyst On clindamycin IV Continue solumedrol and DuoNeb treatment Blood cx and sputum cx pending Speech consulted recommended strict NPO but pt choose to eat Refused any tube feeding Diet changed to dental soft diet, moist, thin liquids 1/7 clinically improved On IV solumedrol will discharge on PO prednisone Continue neb treatment, chest PT and Mucomyst Pt understand that he is at risk for aspiration whenever he eats by mouth Refused tube feeding HX RHEUMATIC VALVULAR DISEASE S/P AORTIC AND MITRAL VALVE REPLACEMENT will resume coumadin INR 1.8 today Supra therapeutic INR INR 9.9 , then decrease to 1.8 Coumadin was on hold vit K given yesterday INR 1.8 today Resume coumadin today Monitor INR HYPOTHYROIDISM TSH WNL continue levothyroxine ANEMIA Hgb 9.8 Low iron level Continue iron supplement Monitor CBC HYPOKALEMIA Stable monitor BMP HTN BP in the low side Continue holding lisinopril Continue monitor BP Monitor BP DVT PROPHYLAXIS resume coumadin INR 1.8 DISPOSITION discharge home today follow up with Dr. Nguyen on 09/07 @ 11AM Total time spent on discharge = 35 MIN This includes examination of the patient, discharge planning, medication reconciliation, and communication with other providers. Discharge Instructions Discharge Instructions Date of Service Sep 03, 2017. Admission Reason for Admission: Pneumonia, Sepsis Discharge Discharge Diagnosis / Problem: Acute on chronic hypoxemic hypercapnic respiratory failure , Elevated INR Discharge Goals Goal(s): Decrease discomfort, Improve function, Improve disease control Activity Recommendations Activity Limitations: resume your previous activity . Instructions / Follow-Up Instructions / Follow-Up Follow up with your primary care provider Dr. Nguyen on 09/07 @ 11 AM Please call your lung specialist to schedule follow up appointment Continue to use oxygen supplement Aspiration precaution Continue antibiotic with clindamycin Continue Coumadin Follow up with the coumadin clinic (INR 1.8) Check INR between 3 to 5 days Complete prednisone taper Fall precaution Current Hospital Diet Patient's current hospital diet: AHA Diet (Heart Healthy) Discharge Diet Recommended Diet: AHA Diet (Heart Healthy) Pending Studies Studies pending at discharge: no Medical Emergencies . Who to Call and When: Medical Emergencies: If at any time you feel your situation is an emergency, please call 911 immediately. . Non-Emergent Contact Non-Emergency issues call your: Primary Care Provider, Cutting Inspector Call Non-Emergent contact if: you have a fever, you have any medication questions . . "Provider Documentation" section prepared by Mary Bustos. . VTE Core Measure Inpt VTE Proph given/why not?: Warfarin (Coumadin) Additional Copies To Kyle Nguyen MD
--- NOTE | 2017-09-14 05:36 | EDITING REQUIRED CODING QUERY ---
SEPSIS To promote full compliance with coding requirements relating to patient care, physician participation is requested in all cases of air brush artist uncertainty. Please assist us with the question(s) below: In responding to this query, please exercise your independent professional judgment. The fact that a question is asked does not imply that any particular answer is desired or expected. We appreciate your clarification on this issue. CODING QUESTION: Sepsis/possible Sepsis was listed in the H & P but not in progress notes or discharge summary. Please clarify to the best of your knowledge. Thank you so much for your help! Have a great weekend! ( ) Sepsis, present on admission (x ) Sepsis, ruled out ( ) Other, explain
== END 2017-09-03 16:54 | disposition home or self-care (01) | DRG 177 ==
LOC: C.EDB 15:51 → C.2T 19:16 → ENRESERV 19:47 → C.2T 09-01 03:26
PROVIDERS: ADMIT Internal Medicine; ATTEND Internal Medicine
DX: J69.0 Pneumonitis due to inhalation of food and vomit (principal); J96.01 Acute respiratory failure with hypoxia; J96.02 Acute respiratory failure with hypercapnia; J44.1 Chronic obstructive pulmonary disease with (acute) exacerbation; E46 Unspecified protein-calorie malnutrition; Z68.1 Body mass index [BMI] 19.9 or less, adult; I10 Essential (primary) hypertension; E78.5 Hyperlipidemia, unspecified; K21.9 Gastro-esophageal reflux disease without esophagitis; E03.9 Hypothyroidism, unspecified; D64.9 Anemia, unspecified; Z79.01 Long term (current) use of anticoagulants; Z79.82 Long term (current) use of aspirin; Z79.899 Other long term (current) drug therapy; Z85.09 Personal history of malignant neoplasm of other digestive organs; Z87.891 Personal history of nicotine dependence; Z92.3 Personal history of irradiation; Z95.2 Presence of prosthetic heart valve

== ENCOUNTER → 2017-10-02 | Outpatient (CLI) | payer OTHER ==
[~2017-10-02] MED LIST changes: +ATRINS INH; +CLIN300C10 PO; +MCMIN20ML INH; +PRD20 PO; +XPNINS1255 INH; -[UNRECOGNIZED DRUG - REMARK]
--- NOTE | 2017-10-02 09:44 | DIAGNOSTIC IMAGING REPORT ---
(CHEST) THORAX WITHOUT CT DOSE: 175.25 mGycm CLINICAL HISTORY: 61 years-old Male with R91.8 Abnormal chest x-ray with multiple lung [id number] [place]. Follow-up study in a patient with right lower lobe collapse and emphysema. TECHNIQUE: Multiaxial CT images of the chest were performed without contrast. A dose lowering technique was utilized adhering to the principles of ALARA. COMPARISON: Chest radiograph 08/31/2017, CT chest 05/31/2017. FINDINGS: No dominant thyroid nodule identified. Heart is mildly enlarged without pericardial effusion. Prior median sternotomy with prosthetic aortic and mitral valves. Moderate atherosclerosis of the thoracic aorta without aneurysm identified. Coronary arterial disease. Evaluation for adenopathy is limited without the use of IV contrast. Enlarged AP window lymph node measures 1.4 x 1.2 cm on image 113 series 4, previously measuring 1.3 x 1.0 cm. Ill-defined soft tissue prominence within the right hilar/subcarinal distribution is again seen measuring approximately 2.1 x 2.8 cm at the level of the bronchus intermedius, previously 2.0 x 2.4 cm. Small right and trace left pleural effusions are present. There is persistent complete collapse of the right lower lobe. No pneumothorax. Biapical pleural-parenchymal scarring is noted with moderate upper lung zone predominant centrilobular emphysema. Subpleural reticulation and pleural parenchymal scarring involves the left lower lobe. Multifocal multilobar bronchial wall thickening with tree-in-bud groundglass and nodular opacities have mildly worsened from comparison. Pulmonary nodules measuring up to 7 mm are seen as noted on image 213 series 4 within the left lower lobe. Again noted are mucoid secretions within the trachea, bilateral mainstem bronchi, bronchus intermedius and right lower lobe bronchi. No acute abnormality of the imaged upper abdomen. Mild symmetric bilateral gynecomastia. Mild body wall edema. Bones are mildly demineralized. No suspicious lytic or blastic bony lesions identified. IMPRESSION: 1. Complete collapse of the right lower lobe redemonstrated along with mucosal secretions of the trachea, bilateral mainstem bronchi, bronchus intermedius and right lower lobe bronchi. 2. Progressively worsened multifocal nodular and groundglass tree-in-bud opacities with associated bronchial wall thickening suggesting infectious or inflammatory bronchiolitis with bronchitis. 3. Mildly prominent AP window lymph node and subcarinal/right hilar soft tissue prominence also suggesting adenopathy appears stable to slightly increased in size from comparison. Continued follow-up recommended. 4. Small right and trace left pleural effusions. 5. Emphysema. Electronically signed by: Ankur Quezada M.D. 10/02/2017 9:43 AM Dictated Date/Time: 10/02/2017 9:30 AM
== END | disposition home or self-care (01) ==
LOC: C.CTS 09:08
PROVIDERS: ATTEND Physician Assistant
DX: R91.8 Other nonspecific abnormal finding of lung field (principal); C80.1 Malignant (primary) neoplasm, unspecified; J98.11 Atelectasis; J43.9 Emphysema, unspecified

== ENCOUNTER → 2017-10-10 | Outpatient (CLI) | payer OTHER ==
[2017-10-10 10:15] LABS: BASO % 0.3 %; BASO ABS # 0.03 K/uL (0-0.2); EOS % 1.2 %; EOS ABS # 0.11 K/uL (0-0.5); IG# 0.02 K/uL (0.00-0.02); LYMPH ABS # 2.16 K/uL (1.2-3.4); MEAN CORPUSCULAR HEMOGLOBIN 30.4 pg (25-34); MEAN CORPUSCULAR HGB CONC 31.7 g/dl (32-36); MEAN PLATELET VOLUME 9.9 fL (7.4-10.4); MONO % 9.3 %; MONO ABS # 0.84 K/uL (0.11-0.59); NEUT ABS # 5.84 K/uL (1.4-6.5); PLATELET COUNT 271 K/uL (130-400); RED CELL DISTRIBUTION WIDTH CV 13.7 % (11.5-14.5); RED CELL DISTRIBUTION WIDTH SD 47.6 fL (36.4-46.3)
[2017-10-10 10:36] LABS: BLOOD UREA NITROGEN 11 mg/dl (7-18); CALCIUM 8.7 mg/dl (8.5-10.1); CARBON DIOXIDE 36 mmol/L (21-32); CREATININE 0.53 mg/dl (0.60-1.40); GLUCOSE 86 mg/dl (70-99); POTASSIUM 4.1 mmol/L (3.5-5.1); SODIUM 134 mmol/L (136-145)
[2017-10-10 10:37] LABS: INR 3.5 (0.9-1.1)
[2017-10-10 11:02] LABS: PTT PATIENT 52.4 SECONDS (21.0-31.0)
== END | disposition home or self-care (01) ==
LOC: C.LAB1850 09:36
PROVIDERS: ATTEND Physician Assistant
DX: R05 Cough (principal)

== ENCOUNTER → 2017-10-24 | Outpatient (CLI) | payer OTHER ==
[~2017-10-24] MED LIST changes: -ATRINS INH; -CLIN300C10 PO; -XPNINS1255 INH
--- NOTE | 2017-10-24 12:08 | DIAGNOSTIC IMAGING REPORT ---
CHEST 2 VIEWS ROUTINE CLINICAL HISTORY: C80.1 [id number] Aspiration into [id number] COMPARISON STUDY: 08/31/2017 FINDINGS: There are postsurgical changes of a midline sternotomy and by valvular replacement. The heart is mildly enlarged. There is a small right pleural effusion. There are right lower lobe airspace opacities, consistent with a pneumonia. There is a trace left pleural effusion. There is been near complete interval clearing of the previously identified right midlung zone airspace opacities and significant improvement in the previous identified left basal airspace opacities IMPRESSION: 1. Small right pleural effusion and trace left pleural effusion 2. Emphysema 3. Right lower lobe airspace opacity suspicious for pneumonia Electronically signed by: Quinton Booth M.D. 10/24/2017 12:07 PM Dictated Date/Time: 10/24/2017 12:05 PM
== END | disposition home or self-care (01) ==
LOC: C.RAD1850 11:54
PROVIDERS: ATTEND Physician Assistant
DX: C80.1 Malignant (primary) neoplasm, unspecified (principal); T17.908A Unspecified foreign body in respiratory tract, part unspecified causing other injury, initial encounter; J90 Pleural effusion, not elsewhere classified; J43.9 Emphysema, unspecified; R91.8 Other nonspecific abnormal finding of lung field; X58.XXXA Exposure to other specified factors, initial encounter

== ENCOUNTER 2018-01-13 19:25 | Inpatient (IN) | payer OTHER ==
[~2018-01-13] VITALS: Ht 170.2 cm; Wt 60.9 kg
[2018-01-13] MEDS: AMIODARONE 360MG / 200ML D5W ONE ×2 (18:35→19:40)
[~2018-01-13 19:25] MED LIST changes: -ALBUAER INH; -FAMO1TAB47 PO; -OXGN; -TPRSR/25 PO
[2018-01-13] MEDS ORDERED: SODIUM CHLORIDE 0.9% 1000ML 1,000 ML IV STA (19:27)
[2018-01-13] MEDS ORDERED: AMIODARONE 150MG / 100ML D5W ONE (19:40)
--- NOTE | 2018-01-13 19:59 | DIAGNOSTIC IMAGING REPORT ---
CHEST ONE VIEW PORTABLE CLINICAL HISTORY: Respiratory arrest COMPARISON STUDY: October 24, 2017 FINDINGS: There are postsurgical changes of midline sternotomy and by valvular replacement. The heart remains enlarged. There is an endotracheal tube positioned 19 mm above the trever. There is a small right pleural effusion. There are persistent right lower lobe airspace opacities.[ There is underlying emphysema. IMPRESSION: 1. Interval placement of endotracheal tube 19 mm above the trever 2. Emphysema 3. Small right pleural effusion with persistent right basilar airspace opacities Electronically signed by: Quinton Booth M.D. 01/13/2018 7:58 PM Dictated Date/Time: 01/13/2018 7:57 PM
[2018-01-13] MEDS ORDERED: NOREPINEPHRINE BIT INJ 8 MG in DEXTROSE 5% 500ML 500 ML IV PRN ×2 (20:00→22:01)
[2018-01-13] MEDS ORDERED: EPINEPHRINE HCL 4 MG in DEXTROSE 5% 250ML IV PRN (20:15)
[2018-01-13 20:16] LABS: INR 2.6 (0.9-1.1); PTT PATIENT 42.5 SECONDS (21.0-31.0)
[2018-01-13 20:20] LABS: ALBUMIN 2.5 gm/dl (3.4-5.0); ALKALINE PHOSPHATASE 75 U/L (45-117); ALT/SGPT 38 U/L (12-78); AST/SGOT 69 U/L (15-37); BLOOD UREA NITROGEN 10 mg/dl (7-18); CALCIUM 7.6 mg/dl (8.5-10.1); CARBON DIOXIDE 23 mmol/L (21-32); CKMB 1.8 ng/ml (0.5-3.6); CREATININE 0.86 mg/dl (0.60-1.40); GLUCOSE 269 mg/dl (70-99); POTASSIUM 4.4 mmol/L (3.5-5.1); SODIUM 132 mmol/L (136-145); TOTAL PROTEIN 5.5 gm/dl (6.4-8.2)
[2018-01-13] MEDS ORDERED: ADVIN50050 INH (20:20)
[2018-01-13] MEDS ORDERED: WARF-280 PO (20:20)
[2018-01-13] MEDS ORDERED: IPRASOL4 INH (20:20)
[2018-01-13] MEDS ORDERED: LSN20 PO (20:20)
[2018-01-13] MEDS ORDERED: LPT10 PO (20:20)
[2018-01-13] MEDS ORDERED: CEFEPIME IV 1,000 MG in SYRINGE 0 ML IV STA (20:21)
[2018-01-13] MEDS ORDERED: PRED20TA PO (20:23)
[2018-01-13] MEDS ORDERED: METHYLPREDNISOLONE 125 MG VIAL ONE (20:26)
[2018-01-13 20:30] LABS: HEMATOCRIT 42.4 % (42-52); HEMOGLOBIN 13.3 g/dL (14.0-18.0); MEAN CELL VOLUME 94.2 fL (80-100); MEAN CORPUSCULAR HEMOGLOBIN 29.6 pg (25-34); MEAN CORPUSCULAR HGB CONC 31.4 g/dl (32-36); MEAN PLATELET VOLUME 10.3 fL (7.4-10.4); PLATELET COUNT 191 K/uL (130-400); RED CELL DISTRIBUTION WIDTH CV 13.6 % (11.5-14.5); RED CELL DISTRIBUTION WIDTH SD 46.5 fL (36.4-46.3); WHITE BLOOD COUNT 12.87 K/uL (4.8-10.8)
[2018-01-13] MEDS ORDERED: VASOPRESSIN INJ 50 UNITS in SODIUM CHLORIDE 0.9% 500ML 500 ML IV SCH (21:00)
[2018-01-13] MEDS ORDERED: VANCOMYCIN IV 1,250 MG in SODIUM CHLORIDE 0.9% 250ML 250 ML IV STA (21:12)
[2018-01-13] MEDS ORDERED: VANCOMYCIN CONSULT ACTIVE PRN (21:15)
[2018-01-13] MEDS ORDERED: TPRSR/25 PO (21:21)
[2018-01-13] MEDS ORDERED: FAMO1TAB47 PO (21:21)
[2018-01-13] MEDS ORDERED: ALBUAER INH (21:23)
--- NOTE | 2018-01-13 21:26 | Cardiology Consultation ---
Cardiology Consultation Date of Consultation: January 13, 2018 History of Present Illness Byron Orantes is a 62 year old male seen in cardiology consultation per the request of Dr Russell for evaluation of cardiac arrest. The patient most recently been seen in outpatient cardiology follow-up with Galen Martines PA-C of our practice in July,. The patient has a history of rheumatic valvular heart disease and underwent mechanical mitral valve replacement and mechanical aortic valve replacement in 2013 at [facility] [place]. Preoperative cardiac catheterization performed on 05/31/2014 revealed normal coronary arteries. The patient also has a history of squamous cell carcinoma of the epiglottis and is thus status post supraglottic laryngectomy with bilateral modified neck resection, and epiglottidectomy in 1999. He was treated with postoperative radiation therapy. He has resultant recurrent aspiration and aspiration pneumonitis and is undergone multiple bronchoscopy procedures most recent of which took place in September of this year. Patient was apparently in his normal state of health when witnessed by family to have a sudden collapse and loss of consciousness while eating. He was unresponsive for at least 5 minutes while paramedics were in route. Paramedics were able to intubate him and did remove food debris. He was initially bradycardic but subsequently developed ventricular tachycardia and pulseless electrical activity and received doses of IV epinephrine and defibrillation 2 prehospital. On arrival to the emergency room he was unresponsive, hypotensive and hypoxic. Chest x-ray revealed emphysema, chronic enlargement of the cardiac silhouette, and a small right pleural effusion with persistent right basilar airspace opacities. EKG performed 2 in the emergency department during ongoing resuscitative efforts revealed sinus rhythm with diffuse ST segment depression in the inferior leads as well as the anteroseptal and lateral precordial leads. ST elevation was limited to lead aVR. Initial bedside echocardiography with the portable machine in the emergency department revealed normal biventricular function. The inferior vena cava was small and the ventricles appeared underfilled. Past Medical/Surgical History Problem List: Medical Problems: (1) Allergic rhinitis (2) Cancer (3) COPD, moderate (4) GERD (gastroesophageal reflux disease) (5) History of throat cancer (6) HTN (hypertension) (7) Hyperlipidemia (8) Hypothyroidism (9) Pneumonia (10) Respiratory failure, acute (11) Sepsis Surgical Problems: (1) H/O aortic valve repair (2) H/O mitral valve repair (3) H/O neck surgery History Past Surgical History: Cardiac surgery 07/02/2014 at [facility] receiving #[facility] mechanical mitral valve prosthesis and #[facility] [employer] aortic valve mechanical prosthesis Most recent echocardiogram on file from 2016 revealed normal LVEF at that time with normal prosthetic valve function. Complex head and neck surgery as described above. Social History: Prior smoker having quit in 2006. Occasional alcohol with past history of 2-3 beers per day. This with daughter and significant other. Family History: Apparent family history of coronary artery disease in mother. Father has pacemaker Review Of Systems 10 point review of systems unobtainable due to the patient's unresponsiveness. Allergies Coded Allergies: Penicillins (Verified Allergy, Severe, FACE SWELLS, 10/17/17) Sulfa Drugs (Verified Allergy, Unknown, ITCH, 10/17/17) Medications Reported Home Medications Medications Dose Route/Sig Max Daily Dose Days Date Category Dose Instructions Prednisone 20 Mg Tab 20 Mg PO UD PRN 5 01/13/18 Reported RESCUE KIT FOLLOWS: TAKE 2 TABLETS (40 MG) DAILY FOR 5 DAYS Duoneb (Ipratropium-Albuterol) 3 Ml Nebu 1 Treatment INH Q6H PRN 01/13/18 Reported Warfarin Sodium 2.5 Mg Tab 1 Dose PO UD 01/13/18 Reported TAKE THIS MEDICATION EVERY DAY DIRECTED BY ANTICOAGULATION CLINIC/ Lipitor (Atorvastatin Calcium) 10 Mg Tab 10 Mg PO DAILY 01/13/18 Reported Lisinopril 20 Mg Tab 20 Mg PO DAILY 01/13/18 Reported Advair Diskus 500-50 Mcg/Dose (Fluticasone Prop/Salmeterol) 14 Puff/1 Inhaler Aerp 1 Puff INH BID 01/13/18 Reported Proventil Hfa (Albuterol Sulfate) 108 Mcg/Act Aer 2 Puffs INH UD PRN 04/16/17 Reported Metoprolol Succinate ER (Metoprolol Succinate) 25 Mg Tabcr 25 Mg PO DAILY 04/16/17 Reported Famotidine 20 Mg Tab 20 Mg PO QAM 04/16/17 Reported Oxygen Gas 2 Liters NA HS 06/18/16 Reported Aspirin Ec (Aspirin) 81 Mg Tab 81 Mg PO DAILY 06/03/14 Reported Tylenol (Acetaminophen) 325 Mg Tab 650 Mg PO Q8 PRN 06/03/14 Reported Levothyroxine Sodium 100 Mcg Tab 100 Mcg PO DAILY 06/03/14 Reported TAKE THIS MEDICATION ONCE DAILY 30 MINUTES BEFORE BREAKFAST OR ANY OTHER MEDICATIONS Physical Exam Vital Signs (Last 8hrs): Last 8 Hrs Date Time Temp Pulse Resp B/P (MAP) Pulse Ox O2 Delivery O2 Flow Rate FiO2 01/13/18 21:05 46 21 100/55 100 Mechanical Ventilator 100 01/13/18 20:51 49 01/13/18 20:31 57 21 91/56 100 Mechanical Ventilator 100 01/13/18 20:27 76/47 01/13/18 20:25 59 20 91/54 100 18 20:23 84/54 01/13/18 20:21 88/65 01/13/18 20:20 75 20 100 01/13/18 20:19 98/69 01/13/18 20:18 88 01/13/18 20:17 145/81 01/13/18 20:15 94 20 201/100 87 01/13/18 20:13 217/113 01/13/18 20:11 216/117 01/13/18 20:10 92 20 100 01/13/18 20:09 209/114 01/13/18 20:07 197/103 01/13/18 20:05 91 01/13/18 20:05 104 4 182/97 90 01/13/18 20:03 176/99 01/13/18 20:01 114/22 01/13/18 20:00 124 55 75 18 19:59 112/64 18 19:57 71/16 18 19:55 80 16 51/34 93 18 19:55 77 18 19:53 61/40 18 19:52 62/44 18 19:50 73 16 49/33 96 1918 19:46 71/48 1918 19:45 85 16 1918 19:44 77/44 19/18 19:42 91 60/44 18 19:40 100 16 19/18 19:39 108 18 19:38 77/56 19/18 19:37 84/61 1918 19:35 187 16 67 18 19:34 108 84/61 91 Mechanical Ventilator 100 01/13/18 19:29 63 Mechanical Ventilator 01/13/18 19:29 Mechanical Ventilator General Appearance: Unresponsive, thin, poor muscle tone, apparent malnourishment with cachexia Head: Normocephalic Atraumatic. Eyes: PERRLA, EOMI, conjunctiva and sclera clear Neck: Supple. No carotid bruits noted. No JVD. No HJD. Respiratory: Breath sounds clear to auscultation bilaterally. No w/r/r. Cardiovascular: Well-healed midline sternotomy incision Reg rate and rhythm. S1 and S2 noted. No murmurss, gallops. PMI non displace. Abdomen: Normal bowel sounds, soft nontender. no abdominal bruits. Extremities: No edema, no clubbing or cyanosis. distal pulses 2/4 bilaterally. Neuro: Unresponsive Data Last Resulted 01/13/18 19:36 Red Blood Count 4.50, Mean Corpuscular Volume 94.2, Mean Corpuscular Hemoglobin 29.6, Mean Corpuscular Hemoglobin Concent 31.4, Mean Platelet Volume 10.3 Last Resulted 01/13/18 19:40 Past 24 Hours Test 01/13/18 19:36 01/13/18 19:40 Range/Units Prothromb Time International Ratio 2.6 H 0.9-1.1 Prothrombin Time 26.7 H 9.0-12.0 SECONDS Creatine Kinase MB 1.8 0.5-3.6 ng/ml Creatine Kinase MB Ratio 1.4 0-3.0 Total Creatine Kinase 126 39-308 U/L Troponin I 0.028 0-0.045 ng/ml Lactate level of 9.6. EKG and chest x-ray as outlined above Assessment & Plan Impression: 62-year-old male history of rheumatic heart disease and mechanical aortic valve replacement mechanical mitral valve replacement in 2013, no coronary artery disease of significance at the time of preoperative cardiac catheterization in 2013. Presents status post out of hospital arrest, initial event consistent with aspiration followed by global hypoxia with resultant arrhythmias. Discussion/recommendations: Successful return of circulation noted, but the patient is now requiring maximum doses of epinephrine and norepinephrine infusion to maintain systolic blood pressure 100 mmHg. Based on EKG, the pattern is consistent with a more global ischemia picture likely related to transient hypoxia and hypotension rather than this being a primary coronary event, and the patient was witnessed to have aspirated. Per his significant other, he has collapsed and required CPR at the time of aspiration event in the past but recovered from this. He presents since this was not a primary cardiac event, the evidence to support therapeutic hypothermia is less clear. At present recommend ICU admission and support with ongoing pressors. There is no indication for emergent cardiac catheterization at this time. I discussed the patient's condition with the patient's girlfriend of 22 years and daughter in the emergency room along with Dr. Russell.
[2018-01-13] MEDS ORDERED: IMIPENEM/CILASTATIN IV 500 MG in DEXTROSE 5% 100ML 100 ML IV SCH (22:00)
[2018-01-13] MEDS ORDERED: EpINEphrine HCL INJ 4 MG in DEXTROSE 5% 250ML 250 ML IV PRN (22:01)
[2018-01-13] MEDS ORDERED: VASOPRESSIN INJ 50 UNITS in SODIUM CHLORIDE 0.9% 500ML 500 ML IV PRN (22:01)
[2018-01-13] MEDS ORDERED: INSULIN ASPART 100 UNITS/ML 3 ML PEN SC ONE (22:02)
[2018-01-13] MEDS ORDERED: INSULIN GLARGINE SOLOSTAR 100 UNITS/ML 3 ML PEN SC ONE (22:02)
[2018-01-13] MEDS ORDERED: SODIUM CHLORIDE 0.9% 1000ML 1,000 ML IV SCH (22:02)
--- NOTE | 2018-01-13 22:09 | Critical Care Consultation ---
Critical Care Consultation Date of Consultation: January 13, 2018. Attending Physician: Dorothy Tsai M.D. Reason for Consultation: Respiratory arrest with subsequent cardiac arrest. History of Present Illness Unable to obtain from the patient secondary to current state of extremis requiring intubation with mechanical ventilation. Patient is a 70-year-old male with a significant past medical history of rheumatic heart disease affecting the mitral and aortic valves with subsequent valve replacement 2 in 2013. In addition, the patient has a history of esophageal cancer with prior resection and epiglottis resection as well which results in multiple episodes of aspiration pneumonitis events. He has COPD from former smoking. The patient was thought to be enjoying a typical state of health today, but during a meal, he began to aspirate and collapsed. CPR was started. Patient did receive ACLS in route to the emergency department including intubation. He did have a return of spontaneous circulation in route. Upon arrival in the emergency department, the patient went asystolic. Patient received additional rounds of ACLS and administration of amiodarone followed by amiodarone drip. Patient did seem to stabilize somewhat, but did eventually rearrest. Upon my evaluation in the emergency department, active compressions were taking place. Patient was on an amiodarone drip, epinephrine drip, and Levophed drip at the high end of parameters. He was intubated, however his pulse oximetry readings were in the low 70s for some time until patient had return of spontaneous circulation. At this point, the patient was found to have an elevated lactic acid level of greater than 9. He is not significantly anemic. Remarkably, he has no significant electrolyte derangements. Chest x-ray shows concern for possible aspiration event. Femoral arterial and central venous lines were placed in the emergency department. Vasopressin was added. Patient received cefepime as well as vancomycin and corticosteroids. Aggressive IV fluid resuscitation was in place. On my evaluation, the patient is unable to provide historical information. He is an active extremitas at this point. I did have a conversation with the patient's long-term significant other, Nadine, and a daughter were present at bedside. Lengthy conversation was had with both regarding care at this point. They will discuss further resuscitative efforts with all family members before decision is made. Past Medical/Surgical History Medical Problems: (1) Allergic rhinitis (2) Cancer (3) COPD, moderate (4) GERD (gastroesophageal reflux disease) (5) History of throat cancer (6) HTN (hypertension) (7) Hyperlipidemia (8) Hypotension (9) Hypothyroidism (10) Pneumonia (11) Respiratory failure, acute (12) Sepsis Surgical Problems: (1) H/O aortic valve repair (2) H/O mitral valve repair (3) H/O neck surgery Family History Diabetes mellitus FH: CAD (coronary artery disease) FH: cancer Social History Smoking Status: Unknown if Ever Smoked Smokeless Tobacco Use: No Alcohol Use: Daily Drug Use: none Marital Status: in relationship Housing Status: lives with significant other Occupation Status: disabled Allergies Coded Allergies: Penicillins (Verified Allergy, Severe, FACE SWELLS, 10/17/17) Sulfa Drugs (Verified Allergy, Unknown, ITCH, 10/17/17) Home Medications Scheduled Aspirin (Aspirin Ec), 81 MG PO DAILY Atorvastatin (Lipitor), 10 MG PO DAILY Famotidine (Famotidine), 20 MG PO QAM Fluticasone Prop/Salmeterol (Advair Diskus 500-50 Mcg/Dose), 1 PUFF INH BID Home O2 Therapy (Oxygen), 2 LITERS NA HS Levothyroxine Sodium (Levothyroxine Sodium), 100 MCG PO DAILY Lisinopril (Lisinopril), 20 MG PO DAILY Metoprolol Succinate (Metoprolol Succinate ER), 25 MG PO DAILY Warfarin Sodium (Warfarin Sodium), 1 DOSE PO UD Scheduled PRN Acetaminophen (Tylenol), 650 MG PO Q8 PRN for Pain Albuterol Sulfate (Proventil Hfa), 2 PUFFS INH UD PRN for Shortness of Breath Ipratropium-Albuterol (Duoneb), 1 TREATMENT INH Q6H PRN for SOB/Wheezing Prednisone (Prednisone), 20 MG PO UD PRN for Rescue Kit Current Inpatient Medications Current Inpatient Medications Medications (Trade) Dose Ordered Sig/Tony Route Start Time Stop Time Status Last Admin Dose Admin Norepinephrine Bitartrate 8 mg/ Dextrose 508 ml @ 0 mls/hr Q0M PRN IV 01/13/18 20:00 02/12/18 19:59 01/13/18 20:10 45 MLS/HR Epinephrine HCl 4 mg/Dextrose 254 ml @ 0 mls/hr Q0M PRN IV 01/13/18 20:15 02/12/18 20:14 01/13/18 20:20 23 MLS/HR Vasopressin 50 units/Sodium Chloride 502.5 ml @ 24 mls/hr [id number] IV 01/13/18 21:00 02/12/18 20:59 01/13/18 21:00 24 MLS/HR Imipenem/ Cilastatin Sodium 500 mg/Dextrose 110 ml @ 100 mls/hr TODAY@2200 IV 01/13/18 22:00 01/13/18 23:05 Vancomycin HCl 1250 mg/Sodium Chloride 275 ml @ 125 mls/hr NOW STAT IV 01/13/18 21:12 01/13/18 23:23 Miscellaneous Information (Consult) 1 ea UD PRN N/A 01/13/18 21:15 02/12/18 21:14 Review of Systems Unable to obtain secondary to current state of extremis requiring intubation with mechanical ventilation. Physical Exam Date Time Temp Pulse Resp B/P (MAP) Pulse Ox O2 Delivery O2 Flow Rate FiO2 01/13/18 21:22 46 21 01/13/18 21:20 35 01/13/18 21:17 46 23 125/59 01/13/18 21:14 122/62 01/13/18 21:12 45 25 115/50 01/13/18 21:11 114/63 01/13/18 21:09 105/57 01/13/18 21:07 45 23 103/57 100 01/13/18 21:05 46 21 100/55 100 Mechanical Ventilator 100 01/13/18 21:04 100/55 01/13/18 21:02 45 22 103/45 100 01/13/18 21:00 90/53 01/13/18 20:58 179/154 01/13/18 20:57 46 18 99/43 100 01/13/18 20:54 90/48 01/13/18 20:52 47 20 99/43 100 01/13/18 20:51 49 01/13/18 20:51 91/52 01/13/18 20:49 101/56 01/13/18 20:47 59 22 105/55 01/13/18 20:45 91/48 01/13/18 20:43 94/53 01/13/18 20:42 55 21 95/43 01/13/18 20:41 85/51 5/19/18 20:39 86/58 5/19/18 20:37 49 22 100/65 100 5/19/18 20:34 106/70 5/19/18 20:32 57 20 76/50 100 5/19/18 20:31 57 21 91/56 100 Mechanical Ventilator 100 519/18 20:27 76/47 519/18 20:25 59 20 91/54 100 519/18 20:23 84/54 519/18 20:21 88/65 519/18 20:20 75 20 100 519/18 20:19 98/69 519/18 20:18 88 519/18 20:17 145/81 519/18 20:15 94 20 201/100 87 519/18 20:13 217/113 519/18 20:11 216/117 519/18 20:10 92 20 100 519/18 20:09 209/114 519/18 20:07 197/103 519/18 20:05 91 19/18 20:05 104 4 182/97 90 519/18 20:03 176/99 519/18 20:01 114/22 519/18 20:00 124 55 75 519/18 19:59 112/64 519/18 19:57 71/16 519/18 19:55 80 16 51/34 93 519/18 19:55 77 19/18 19:53 61/40 519/18 19:52 62/44 519/18 19:50 73 16 49/33 96 519/18 19:46 71/48 519/18 19:45 85 16 5/19/18 19:44 100 5/19/18 19:44 77/44 519/18 19:42 91 60/44 519/18 19:40 100 16 519/18 19:39 108 519/18 19:38 77/56 519/18 19:37 84/61 519/18 19:35 187 16 67 5/19/18 19:34 108 84/61 91 Mechanical Ventilator 100 19/18 19:29 63 Mechanical Ventilator 19/18 19:29 Mechanical Ventilator VITAL SIGNS - Vital signs and nursing notes were reviewed. GENERAL - 62-year-old male appearing older than his stated age who is intubated and requiring mechanical ventilation. SKIN - Without rashes. HEAD - NC/AT. EYES - Bilateral pupillary asymmetry of questionable significance. Sluggish bilaterally. EARS - No deformities of external structures noted on gross examination bilaterally. NOSE - Midline and without cyanosis. MOUTH/OROPHARYNX - Intubated. NECK - Supple to palpation. Previous surgical scars appreciated. LUNGS - Chest wall symmetric without accessory muscle use, intercostals retractions, or central cyanosis. Normal vesicular breath sounds CTA B/L. No wheezes, rales, or rhonchi appreciated. CARDIAC - RRR with S1/S2. No murmur, rubs, or gallops appreciated. ABDOMEN - Abdominal contour flat with tightness of the abdomen noted. BS hypoactive all four quadrants. EXTREMITIES - No clubbing or peripheral cyanosis. No pretibial edema present. +3 /5 radial pulses palpated throughout. NEUROLOGIC - Unable to assess at this time. Unresponsive to painful stimuli. Downward Babinski LEFT greater than RIGHT. Laboratory Results Last 24 Hours Test 01/13/18 19:36 01/13/18 19:40 01/13/18 20:18 01/13/18 20:49 White Blood Count 12.87 K/uL Red Blood Count 4.50 M/uL Hemoglobin 13.3 g/dL Hematocrit 42.4 % Mean Corpuscular Volume 94.2 fL Mean Corpuscular Hemoglobin 29.6 pg Mean Corpuscular Hemoglobin Concent 31.4 g/dl Platelet Count 191 K/uL Mean Platelet Volume 10.3 fL RDW Standard Deviation 46.5 fL RDW Coefficient of Variation 13.6 % Prothrombin Time 26.7 SECONDS Prothromb Time International Ratio 2.6 Activated Partial Thromboplast Time 42.5 SECONDS Partial Thromboplastin Ratio 1.6 Venous Blood pH 7.09 Venous Blood Partial Pressure CO2 92 mmHg Venous Blood Partial Pressure O2 47 mmHg Venous Blood HCO3 27 mmol/L Venous Blood Oxygen Saturation 64.0 % Venous Blood Base Excess -4.3 mEq/L Sodium Level 132 mmol/L Potassium Level 4.4 mmol/L Chloride Level 95 mmol/L Carbon Dioxide Level 23 mmol/L Anion Gap 14.0 mmol/L Blood Urea Nitrogen 10 mg/dl Creatinine 0.86 mg/dl Estimated GFR () 109.2 Estimated GFR (Non- 94.3 BUN/Creatinine Ratio 11.4 Random Glucose 269 mg/dl Osmolality 325 mOsm/kg Lactic Acid Level 9.6 mmol/L Calcium Level 7.6 mg/dl Magnesium Level 5.6 mg/dl Total Bilirubin 0.5 mg/dl Direct Bilirubin 0.2 mg/dl Aspartate Amino Transf (AST/SGOT) 69 U/L Alanine Aminotransferase (ALT/SGPT) 38 U/L Alkaline Phosphatase 75 U/L Total Creatine Kinase 126 U/L Creatine Kinase MB 1.8 ng/ml Creatine Kinase MB Ratio 1.4 Troponin I 0.028 ng/ml Total Protein 5.5 gm/dl Albumin 2.5 gm/dl Procalcitonin 0.10 ng/ml Thyroid Stimulating Hormone (TSH) 4.600 uIu/ml Bedside Blood Gas pH (LAB) 7.10 7.14 Bedside Blood Gas pCO2 (LAB) 59 mmHg 49 mmHg Bedside Blood Gas pO2 (LAB) 370 mmHg > 420 mmHg Bedside Blood Gas HCO3 (LAB) 18 meq/L 17 meq/L Bedside Blood Gas Total CO2 20 mEq/l 18 mEq/l Bedside Blood Gas Base Excess (LAB) -11.0 meq/L -13.0 meq/L Bedside Blood Gas O2 Saturation 100.0 % 100.0 % Test 01/13/18 21:33 Ethyl Alcohol mg/dL 105.6 mg/dl Diagnostic Results Radiological imaging and reports were reviewed by myself. Radiologist's Interpretation as follows: CHEST ONE VIEW PORTABLE CLINICAL HISTORY: Respiratory arrest COMPARISON STUDY: October 24, 2017 FINDINGS: There are postsurgical changes of midline sternotomy and by valvular replacement. The heart remains enlarged. There is an endotracheal tube positioned 19 mm above the trever. There is a small right pleural effusion. There are persistent right lower lobe airspace opacities.[ There is underlying emphysema. IMPRESSION: 1. Interval placement of endotracheal tube 19 mm above the trever 2. Emphysema 3. Small right pleural effusion with persistent right basilar airspace opacities CHEST ONE VIEW PORTABLE CLINICAL HISTORY: Respiratory failure COMPARISON STUDY: 01/13/2018 FINDINGS: There is an endotracheal tube positioned at the right mainstem orifice. There is a nasogastric tube within the stomach. There are postsurgical changes of midline sternotomy and by valvular replacement. The heart is enlarged. There is a small right pleural effusion. There are progressive right basal airspace opacities. There are developing left basilar airspace opacities. There is underlying emphysema.[ IMPRESSION: 1. The endotracheal tube is positioned at the takeoff of the right mainstem bronchus 2. Nasogastric tube within the stomach 2. Small right pleural effusion 4. Worsening right basal airspace opacities. Developing left basilar airspace opacities Assessment & Plan (1) Respiratory arrest (2) Cardiac arrest (3) Acidosis (4) Hypothyroidism (5) COPD, moderate (6) Sepsis (7) Pneumonia Reason Critically Ill: Respiratory arrest with subsequent cardiac arrest. Neuro - * CAM ICU: Unable to assess secondary to RASS >-4 * Unresponsive State: * Likely 2/2 anoxic encephalopathy. * At the time of initial evaluation, patient was too unstable to undergo CT of the head for ICH/Ischemic evaluation. This was discussed amongst colleagues who are all in agreement. Patient had a witnesses episode of aspiration resulting in respiratory arrest and subsequent cardiac arrest. This certainly does not present as a typical preceding neurologic disaster. Will perform head CT when patient has been further stabilized in the ICU. * Of note, the patient was reported to have had an INR of >8.0 earlier in the week. At this point his INR was 2.6, actually borderline subtherapeutic given his need for anticoagulation in the setting of mechanical heart valves. * Will add AM EEG. * Appreciate Neurology consultation. Cardiac - * Cardiac Arrest s/p Respiratory Arrest: * Initially heroically resuscitated in the ED w/ multiple rounds of ACLS. * Requiring Epi/Levo/Vaso. * Amio gtt started s/p arrest. * Currently Bradycardic and hypotensive. * In discussion with Cardiology, will wean versus D/C Amio gtt as this may be contributing to bradycardia. * Plan to titrate down pressors as tolerated. * Bedside Echo by Cardiology demonstrated good squeeze of the heart with no profound valvular issues. * Will add AM formal Echo. * Monitor on telemetry. * In regards to discussion of role of therapeutic hypothermia in this patient: He is certainly a primary respiratory arrest. He has multiple comorbidities of consideration. At present, he is hypothermic idiopathically. At this point, we will defer from hypothermic protocols given the above mentioned. * h/o Rheumatic Heart Disease s/p Mechanical Aortic and Mitral Valve replacements in 2013. * Appreciate Cardiology consultation. Respiratory - * Respiratory Arrest w/ Aspiration Event: * Longstanding h/o aspiration events 2/2 Epiglottectomy in 1999 2/2 Squamous Cell Cancer of the neck. Radical neck dissection w/ radiation in 2000 as well. * Witnessed by family. Had arrested 2/2 aspiration in the past. * Currently intubated. Plan to wean down settings as tolerated. * Serial ABGs in the setting of Respiratory Acidosis w/ poor metabolic compensation 2/2 likely prerenal injury. * Supplemental BiCarb PRN - see Renal/Lytes. * Inhalers PRN * Antibiotics * Steroids in the acute setting. * Will add CT of the chest if patient stabilizes. * Unlikely PE in the setting of INR of 2.6, however, if the patient was actively being corrected for a previous INR of 8.0, he may certainly have developed thrombotic like event. At this point, would still defer from CTA w/ renal injury, lack of O2 requirement, and s/s less likely associated with PE. * h/o COPD: * Currently actively treating as described above. * h/o Vocal Cord Paralysis: * Currently intubated. GI - * Recurrent aspiration 2/2 Epiglottectomy in 1999: * Keep head of bed elevated at all times as to prevent further risk of aspiration. * Prophylaxis: Protonix * OG in place. * Hold on feedings at this time. * Abdomen taught - * Intraabdominal pressures. * Consider CT Abd/Pelvis when stable. * Still w/ equal pulse pressures in the upper and lower extremities making profound abdominal compartment syndrome much less likely. RENAL/LYTES - * No significant electrolyte derangements initially. * Will trend throughout the night in the setting of resuscitative efforts. * Mixed Respiratory Acidosis w/ Profound Lactic Acidosis: * Will add PRN Bicarb w/ Serial ABGs. * Will change IVF from NSS to D5W /2 NSS + 3 Amps Bicarb @ 200mL/hr - consider adding K+ pending PRPs * Hypermagnesemia: * Of questionable significance. Will repeat/trend. - * Martin in place w/ minimal urine output. * Strict I&Os ENDO - * Hyperglycemia: * Insulin gtt in the critically ill patient. * Hypothyroidism: * Continue w/ outpatient replacement. HEME - * Stable H&H at this point: * Will trend in the setting of compression trauma and CVL placements. * Will monitor for any bleeding while on Coumadin. * Blasts noted in differential: * Will repeat. * Question if lab draws performed from Intraosseous IV site, or if placement of IO may have seeded marrow. * Need for Anticoagulation 2/2 mechanical prosthetic aortic/mitral valves. * Lovenox BID dosing. ID - * Aspiration Pneumonitis: * Imipenem/Vancomycin * Will continue in the acutely ill patient. * While likely not a seeded infection at this point, great potential for detrimental consolidation to occur while intubated and critically ill. * Trend Lactic. LINES/IV ACCESS - * PIVs x3 * RIGHT Femoral CVL * RIGHT Femoral A-Line * Martin DVT PROPHYLAXIS - * Lovenox BID - therapeutic dose * SCDs RESUSCITATION STATUS - * Lengthy conversation had with patient's long-time girlfriend (21 years) Nadine. Patient's daughters x4 were all present as well. At this point, while not legally , the patient's closest relatives, his daughters, have agreed that Nadine should be contacted to make any medical decision for the patient. Nursing staff (LEIGH Edwards) was present for this entire conversation. * After extensive discussion, the family agrees with making the patient a LEVEL FIVE DNR in the event that his heart were to stop beating. The do not wish for him to undergo any further heroic resuscitative measures. They are agreeable to continuing current treatment course with the plan of continuing to reevaluate any further care measures. I have personally spent 120 minutes of critical care time in the direct management of this patient. This is a life/limb threatening event. This includes time spent evaluating patient, direct bedside care, chart review, placing orders, interpretation of diagnostic studies, discussion with consultants, patient, and family members, as well as other required patient management activities. This time is exclusive of all separately billable procedures, and teaching time and separate from and in addition to any other critical care service time. Thank you for this consultation allow us to be part of this patient's care. Please refer to my attending physician's documentation for any further recommendations. Problem Qualifiers (1) Sepsis: Sepsis type: sepsis due to unspecified organism Qualified Codes: A41.9 - Sepsis, unspecified organism
--- NOTE | 2018-01-13 22:09 | Procedure Note ---
Procedure Note Procedure Date January 13, 2018. Procedure Description Procedure Name: RIGHT Femoral A-Line Time of procedure: 20:45 Performed by: physician saw cleaner Indications: diagnostic, therapeutic Contraindications: none Description: Procedure: Arterial Line Placement Attending: Dr. Barker APC: Hadley Taylor PA-C Indication: Monitoring on Pressors Anesthesia: None Emergent consent was implied secondary to the patient's acute state of decompensation and need for close hemodynamic monitoring. This was done at bedside while in the ED. A time-out was completed verifying correct patient, procedure, site, positioning , and implant(s) or special equipment if applicable. Teddy's test was performed to ensure adequate perfusion. Patient's RIGHT Groin was prepped and draped in the usual sterile fashion. Ultrasound guidance was used to aid needle placement. Modified Seldinger technique was utilized to wire over the initial needle. The needle was removed. A 20g Arrow arterial line was introduced into the RIGHT Femoral artery over the guidewire. Catheter was threaded, and the guidewire was removed with appropriate blood return. Good waveform was observed. The patient tolerated the procedure well. Confirmation of placement with ultrasound. Images saved to medical record. Blood Loss: Minimal Complications: None Procedural Ultrasound Guidance: Procedure Date: 01/13/2018 Indication: Need for multiple ABGs and close monitoring of BP while on pressors. Attending: Dr. Barker APC: Hadley Taylor PA-C Artery Identified: YES Line confirmed in Artery with ultrasound: YES Complications: NONE Patient tolerated procedure: WELL Complications: none Patient tolerated procedure: well Post-procedure vital signs: reviewed and stable
--- NOTE | 2018-01-13 22:09 | Procedure Note ---
Procedure Note Procedure Date January 13, 2018. Procedure Description Procedure Name: RIGHT Femoral CVL Time of procedure: 20:30 Performed by: physician professor of economics Indications: diagnostic, therapeutic Contraindications: none Description: Procedure: Central Line Placement Attending: Dr. Barker APC: Hadley Taylor PA-C Indication: Central Drug Administration, Poor Venous Access, Multiple Lab Draws Necessary, etc. Anesthesia: Lidocaine 1% Emergent Consent implied as the patient was in active extremis in the ED with need for multiple medications and lab draws. A time-out was completed verifying correct patient, procedure, site, positioning , and implants(s) or special equipment if applicable. Patient's RIGHT Groin was cleansed and draped in the typical sterile fashion using Chloraprep. The Femoral Vein and Femoral Artery were identified using ultrasound. The superficial tissue was anesthetized using 3.0 cc of 1% lidocaine without epinephrine under direct visualization with the ultrasound. After adequate anesthetization was achieved, the Femoral vein was cannulated under direct ultrasound guidance using an introducer needle on a syringe. Good venous blood return was maintained prior to removal of syringe from introducer needle. Using Seldinger Technique, a guide wire was advanced through the introducer needle without resistance. The introducer needle was removed and ultrasound images were obtained of the guide wire within the Femoral Vein. A small incision was made in penetrating fashion at the guide wire insertion site utilizing an 11 blade scalpel. The dilator was advanced to the vessel without resistance. The dilator was exchanged for the triple lumen catheter which was advanced into the vessel without resistance. The guide wire was removed intact from the catheter without issue. Claves were placed on each catheter tip with confirmation of good blood flow from each lumen. The catheter was placed at the hub and sutured in place. BioPatch was applied to the catheter and a sterile Tegaderm dressing was applied over the catheter with careful attention to sterility. Patient tolerated procedure well. No immediate complications were met. Post procedure x-ray was completed, placement was appropriate and no pneumothorax was noted. Images obtained are saved for permanent record Procedural Ultrasound Guidance: Procedure Date: 01/13/2018 Indication: Multiple Vasoactive Medications, Frequent Lab Draws Attending: Dr. Barker APC: Hadley Taylor PA-C Artery AND Vein visualized: YES Compressible Vein: YES Guidewire or Short Catheter seen in vein prior to dilation: YES Line confirmed in Vein with ultrasound: YES Images obtained are saved for permanent record. Complications: none Patient tolerated procedure: well Post-procedure vital signs: reviewed and stable
--- NOTE | 2018-01-13 22:11 | EMERGENCY ROOM VISIT NOTE ---
History Report prepared by Scribe: Carolina Flaherty Under the Supervision of: Dr. Yonathan Russell D.O. First contact with patient: 19:25 Stated Complaint: CHOKING, UNRESPONSIVE, RESP. ARREST History of Present Illness The patient is a 62 year old male who presents to the Emergency Room with complaints of persistent respiratory distress that began prior to arrival. He was brought to the ED via ALS. Per family, the patient was eating dinner this evening when he choked and collapsed. CPR was performed in the field and the patient was intubated. Down time was a total of 5 minutes prior to EMS arrival. He was defibrillated twice and given 2 rounds of epinephrine, 100 of Lidocaine, 2 of Versed and 100 of Fentanyl. ROSC in the field. ALS states they lost pulses on the way to the room. A code blue was called while the patient was in the A1. Additional information is unable to be obtained secondary to patient intubation. 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 A limited number of systems reviewed and were otherwise negative. Past Medical & Surgical Medical Problems: (1) Allergic rhinitis (2) Cancer (3) COPD, moderate (4) GERD (gastroesophageal reflux disease) (5) History of throat cancer (6) HTN (hypertension) (7) Hyperlipidemia (8) Hypotension (9) Hypothyroidism (10) Pneumonia (11) Respiratory failure, acute (12) Sepsis Surgical Problems: (1) H/O aortic valve repair (2) H/O mitral valve repair (3) H/O neck surgery Family History Diabetes mellitus FH: CAD (coronary artery disease) FH: cancer Social History Smoking Status: Former Smoker Drug Use: none Marital Status: in relationship Housing Status: lives with significant other Occupation Status: disabled Current/Historical Medications Scheduled Aspirin (Aspirin Ec), 81 MG PO DAILY Atorvastatin (Lipitor), 10 MG PO DAILY Famotidine (Famotidine), 20 MG PO QAM Fluticasone Prop/Salmeterol (Advair Diskus 500-50 Mcg/Dose), 1 PUFF INH BID Home O2 Therapy (Oxygen), 2 LITERS NA HS Levothyroxine Sodium (Levothyroxine Sodium), 100 MCG PO DAILY Lisinopril (Lisinopril), 20 MG PO DAILY Metoprolol Succinate (Metoprolol Succinate ER), 25 MG PO DAILY Warfarin Sodium (Warfarin Sodium), 1 DOSE PO UD Scheduled PRN Acetaminophen (Tylenol), 650 MG PO Q8 PRN for Pain Albuterol Sulfate (Proventil Hfa), 2 PUFFS INH UD PRN for Shortness of Breath Ipratropium-Albuterol (Duoneb), 1 TREATMENT INH Q6H PRN for SOB/Wheezing Prednisone (Prednisone), 20 MG PO UD PRN for Rescue Kit Allergies Coded Allergies: Penicillins (Verified Allergy, Severe, FACE SWELLS, 10/17/17) Sulfa Drugs (Verified Allergy, Unknown, ITCH, 10/17/17) Physical Exam Vital Signs Date Time Temp Pulse Resp B/P (MAP) Pulse Ox O2 Delivery O2 Flow Rate FiO2 01/13/18 21:22 46 21 01/13/18 21:20 35 01/13/18 21:17 46 23 125/59 01/13/18 21:14 122/62 01/13/18 21:12 45 25 115/50 01/13/18 21:11 114/63 01/13/18 21:09 105/57 01/13/18 21:07 45 23 103/57 100 01/13/18 21:05 46 21 100/55 100 Mechanical Ventilator 100 01/13/18 21:04 100/55 01/13/18 21:02 45 22 103/45 100 01/13/18 21:00 90/53 01/13/18 20:58 179/154 01/13/18 20:57 46 18 99/43 100 01/13/18 20:54 90/48 01/13/18 20:52 47 20 99/43 100 01/13/18 20:51 49 01/13/18 20:51 91/52 01/13/18 20:49 101/56 01/13/18 20:47 59 22 105/55 01/13/18 20:45 91/48 01/13/18 20:43 94/53 01/13/18 20:42 55 21 95/43 01/13/18 20:41 85/51 01/13/18 20:39 86/58 01/13/18 20:37 49 22 100/65 100 01/13/18 20:34 106/70 5/19/18 20:32 57 20 76/50 100 5/18 20:31 57 21 91/56 100 Mechanical Ventilator 100 18 20:27 76/47 518 20:25 59 20 91/54 100 18 20:23 84/54 5/18 20:21 88/65 518 20:20 75 20 100 18 20:19 98/69 518 20:18 88 18 20:17 145/81 18 20:15 94 20 201/100 87 18 20:13 217/113 518 20:11 216/117 18 20:10 92 20 100 18 20:09 209/114 18 20:07 197/103 18 20:05 91 01/13/18 20:05 104 4 182/97 90 01/13/18 20:03 176/99 18 20:01 114/22 18 20:00 124 55 75 18 19:59 112/64 18 19:57 71/16 01/13/18 19:55 80 16 51/34 93 01/13/18 19:55 77 18 19:53 61/40 01/13/18 19:52 62/44 01/13/18 19:50 73 16 49/33 96 18 19:46 71/48 18 19:45 85 16 18 19:44 100 1918 19:44 77/44 19/18 19:42 91 60/44 519/18 19:40 100 16 19/18 19:39 108 19/18 19:38 77/56 519/18 19:37 84/61 519/18 19:35 187 16 67 19/18 19:34 108 84/61 91 Mechanical Ventilator 100 18 19:29 63 Mechanical Ventilator 18 19:29 Mechanical Ventilator Physical Exam GENERAL: Patient is laying in bed, unresponsive, ET tube in place EYE EXAM: Pupils are 3 mm and non-reactive. Normal conjunctiva. OROPHARYNX: no exudate, no erythema, lips, buccal mucosa, and tongue normal and mucous membranes are moist NECK: Mild JVD. LUNGS: Lung sounds are coarse bilaterally. Normal chest wall mechanics HEART: Absent ABDOMEN: abdomen soft, non-tender, normo-active bowel sounds, no masses, no rebound or guarding. : Normal external circumcised genitalia, no femoral pulses. SKIN: no rashes and no bruising UPPER EXTREMITIES: upper extremities are grossly normal. LOWER EXTREMITIES: No pitting edema. NEURO EXAM: Gs 3T. Medical Decision & Procedures ER Provider Diagnostic Interpretation: Radiology results as stated below per my review and the radiologist's interpretation: CHEST ONE VIEW PORTABLE CLINICAL HISTORY: Respiratory arrest COMPARISON STUDY: October 24, 2017 FINDINGS: There are postsurgical changes of midline sternotomy and by valvular replacement. The heart remains enlarged. There is an endotracheal tube positioned 19 mm above the trever. There is a small right pleural effusion. There are persistent right lower lobe airspace opacities. There is underlying emphysema. IMPRESSION: 1. Interval placement of endotracheal tube 19 mm above the trever 2. Emphysema 3. Small right pleural effusion with persistent right basilar airspace opacities Electronically signed by: Quinton Booth M.D. 01/13/2018 7:58 PM Laboratory Results 01/13/18 19:36 Red Blood Count 4.50, Mean Corpuscular Volume 94.2, Mean Corpuscular Hemoglobin 29.6, Mean Corpuscular Hemoglobin Concent 31.4, Mean Platelet Volume 10.3 01/13/18 19:40 Test 01/13/18 19:36 01/13/18 19:40 01/13/18 20:49 White Blood Count 12.87 K/uL (4.8-10.8) Red Blood Count 4.50 M/uL (4.7-6.1) Hemoglobin 13.3 g/dL (14.0-18.0) Hematocrit 42.4 % (42-52) Mean Corpuscular Volume 94.2 fL (80-100) Mean Corpuscular Hemoglobin 29.6 pg (25-34) Mean Corpuscular Hemoglobin Concent 31.4 g/dl (32-36) Platelet Count 191 K/uL (130-400) Mean Platelet Volume 10.3 fL (7.4-10.4) RDW Standard Deviation 46.5 fL (36.4-46.3) RDW Coefficient of Variation 13.6 % (11.5-14.5) Prothrombin Time 26.7 SECONDS (9.0-12.0) Prothromb Time International Ratio 2.6 (0.9-1.1) Activated Partial Thromboplast Time 42.5 SECONDS (21.0-31.0) Partial Thromboplastin Ratio 1.6 Venous Blood pH 7.09 (7.36-7.41) Venous Blood Partial Pressure CO2 92 mmHg (38.0-50.0) Venous Blood Partial Pressure O2 47 mmHg Venous Blood HCO3 27 mmol/L Venous Blood Oxygen Saturation 64.0 % Venous Blood Base Excess -4.3 mEq/L Anion Gap 14.0 mmol/L (3-11) Estimated GFR () 109.2 Estimated GFR (Non- 94.3 BUN/Creatinine Ratio 11.4 (10-20) Osmolality 325 mOsm/kg (280-300) Calcium Level 7.6 mg/dl (8.5-10.1) Magnesium Level 5.6 mg/dl (1.8-2.4) Total Bilirubin 0.5 mg/dl (0.2-1) Direct Bilirubin 0.2 mg/dl (0-0.2) Aspartate Amino Transf (AST/SGOT) 69 U/L (15-37) Alanine Aminotransferase (ALT/SGPT) 38 U/L (12-78) Alkaline Phosphatase 75 U/L (45-117) Total Creatine Kinase 126 U/L (39-308) Creatine Kinase MB 1.8 ng/ml (0.5-3.6) Creatine Kinase MB Ratio 1.4 (0-3.0) Troponin I 0.028 ng/ml (0-0.045) Total Protein 5.5 gm/dl (6.4-8.2) Albumin 2.5 gm/dl (3.4-5.0) Procalcitonin 0.10 ng/ml (0-0.5) Thyroid Stimulating Hormone (TSH) 4.600 uIu/ml (0.300-4.500) Bedside Blood Gas pH (LAB) 7.14 (7.35-7.45) Bedside Blood Gas pCO2 (LAB) 49 mmHg (35-46) Bedside Blood Gas pO2 (LAB) > 420 mmHg (80-95) Bedside Blood Gas HCO3 (LAB) 17 meq/L (19-24) Bedside Blood Gas Total CO2 18 mEq/l (24-31) Bedside Blood Gas Base Excess (LAB) -13.0 meq/L (-9-1.8) Bedside Blood Gas O2 Saturation 100.0 % (90-95) Laboratory results per my review. Medications Administered Medications (Trade) Dose Ordered Sig/Tony Route Start Time Stop Time Status Last Admin Dose Admin Sodium Chloride 1,000 ml @ 999 mls/hr Q1H1M STAT IV 01/13/18 19:27 01/13/18 20:27 DC 01/13/18 19:27 999 MLS/HR Amiodarone HCL/ Dextrose (Nexterone / D5w) 150 mg STK-MED ONCE .ROUTE 01/13/18 19:40 01/13/18 19:41 DC 01/13/18 19:42 150 MG Amiodarone HCL/ Dextrose (Nexterone / D5w) 360 mg STK-MED ONCE .ROUTE 01/13/18 19:40 01/13/18 19:41 DC 01/13/18 18:35 360 MG Norepinephrine Bitartrate 8 mg/ Dextrose 508 ml @ 0 mls/hr Q0M PRN IV 01/13/18 20:00 02/12/18 19:59 01/13/18 20:10 45 MLS/HR Epinephrine HCl 4 mg/Dextrose 254 ml @ 0 mls/hr Q0M PRN IV 01/13/18 20:15 02/12/18 20:14 01/13/18 20:20 23 MLS/HR Cefepime HCl 1000 mg/Syringe 11 ml @ 5.5 mls/min NOW STAT IV 01/13/18 20:21 01/13/18 20:22 DC 01/13/18 20:21 5.5 MLS/MIN Methylprednisolone Sodium Succinate (Solu-Medrol IV) 125 mg STK-MED ONCE .ROUTE 01/13/18 20:26 01/13/18 20:27 DC 01/13/18 20:30 125 MG Vasopressin 50 units/Sodium Chloride 502.5 ml @ 24 mls/hr [id number] IV 01/13/18 21:00 02/12/18 20:59 01/13/18 21:00 24 MLS/HR Procedure PROCEDURE: CPR performed under my direction for a total of 20 minutes during the three separate times that he coded. PROCEDURE: Patient was defibrillated using 200 J nonsynchronized for VT. He did convert into a sinus tach with pulses. Still remained unresponsive. ECG Per My Interpretation Indication: bradycardia Rate (beats per minute): 117 Rhythm: sinus tachycardia Findings: ST depression (Inferior, lateral, elevation in AVR), left axis deviation Change: Repeat EKG on 01/13/2018: Sinus Rhythm, rate of 93, ST depressions in high lateral and lateral leads ED Course ED COURSE: Vital signs were reviewed and showed absent vital signs The patients medical record was reviewed The above diagnostic studies were performed and reviewed. ED treatments and interventions as stated above. 1930: The patient was evaluated in room A1. A complete history and physical examination was performed. 1926: NSS 1000 ml @ 999 mls/hr IV. 1939: Nexterone 360 mg IV, Nexterone 150 mg IV. 1939: I discussed the patients case with Darvin Richmond [employer]. The patient will be further evaluated. 1941: I discussed the patients case with Hadley Taylor PA-C, [facility] ICU. The patient will be further evaluated. 2000: Norepinephrine Bitartrate 8 mg/Dextrose 508 ml @ 0 mls/hr IV. 2014: Epinephrine HCl 4 mg/Dextrose 254 ml @ 0 mls/hr IV. 2020: Cefepime HCl 1000 mg/Syringe 11 ml @ 5.5 mls/min IV. 2025: Solu-Medrol 125 mg IV. 2099: I discussed the patients case with Darvin Cote Hospitalist. The patient will be further evaluated. 2104: Upon reevaluation, the patient is stable.I discussed my findings with the patients family and they understand and agree with the treatment plan. Based on the patients age, coexisting illnesses, exam and lab findings the decision to treat as an inpatient was made. The patient remained stable while under my care. The patient will be evaluated for further management. Medical Decision Etiologies such as cardiac ischemia, aortic dissection, pulmonary embolism, electrolyte abnormality, acidosis, tension pneumothorax, hypothermia, hypovolemia, intracranial event, as well as others were entertained. Patient is a 62-year-old male that presents to the ER via ALS unresponsive. He had a choking episode at home which was witnessed. Became unresponsive. There is a 5 minute downtime and CPR was performed. Patient was brought in by the EMS who had ROSC. Patient was given lidocaine and 2 doses of epi prior to arrival. Patient was also shocked twice. Upon arrival patient was found to be pulseless and unresponsive. CPR was started and a code was called. CPR was performed and patient was given multiple rounds of epinephrine. Cardiology was at bedside. ROSC was obtained. Blood pressures were extremely marginal in the low 50s-80s. He was given push dose epinephrine by myself. Patient was started on an epinephrine drip and Levophed drip once they arrived. We did initially make a bedside epinephrine drip which was used tentatively to maintain systolics while waiting trip from pharmacy. Patient proceeded to code 2 additional times over the course of over 2 hours. Eventually both drips were maxed out. Bedside ultrasound was performed with cardiology on multiple occasions. Bedside ultrasound showed good cardiac contractility when present and a collapsible IVC. Patient was given close to 4 L normal saline. Central line was placed in combination with an arterial line. EKG did show diffuse ST depressions. This was reviewed with cardiology. This is thought to be primarily respiratory in nature. Patient was given a bolus of amiodarone initially as there was some VT and he was shocked once in the ER by myself. Patient was also placed on amiodarone drip. Throughout the course during 1 of his codes he was given bicarb and calcium. He was also given 2 g of magnesium initially as well. We did also titrate the vent and increase the PEEP as when he initially present presented he was still hypoxic. His plateau pressures maxed out at 35. After we obtained good saturations we did decrease PEEP back to 5. Throughout the 3 times a day coated ultrasound and end-tidal was used to direct care. Extensive review of his chart. I did discuss with family at bedside including his significant other. He is a full code at this time. CBC was fairly unremarkable. Lactate was elevated 9.6. Magnesium was elevated at 5 although we did give him 2 g. INR was 2.6. PH was 7.1 initially with an elevated CO2 of 92. At that time we did increase the respiratory rate as well. Prior to transfer to the ICU he was also placed on vasopressin. Prior to transfer to the ICU he was on epinephrine and Levophed maxed out with vasopressin starting and amiodarone. Central lines and arterial line was placed by Hadley Claudia from critical care. Of note patient was also given IV steroids and antibiotics after the second time that he coded. Medication Reconcilliation Current Medication List: was personally reviewed by me Blood Pressure Screening Patient's blood pressure: Low blood pressure Consults Time Called: 1939 Consulting Physician: Darvin Richmond [facility] Returned Call: 1939 I discussed the patients case with Darvin Richmond [employer] Machine Heater. The patient will be further evaluated. Additional Consults: Time Called: 1941 Consulted Physician: Hadley Taylor PA-C, [facility] Returned Call: 1941 Additional Comments: I discussed the patients case with Hadley Taylor PA-C, [facility]. The patient will be further evaluated. Time Called: 2099 Consulted Physician: Darvin Cote Hospitalist Returned Call: 2099 Additional Comments: I discussed the patients case with Darvin Cote [facility]. The patient will be further evaluated. Impression Primary Impression: Respiratory arrest Additional Impressions: Cardiac arrest Acidosis Anemia Critical Care I have personally spent 125 minutes of critical care time in the direct management of this patient. This includes bedside care, interpretation of diagnostic studies, and testing, discussion with consultants, patient, and family members, and other required patient management activities. This 125 minutes is in excess of all separately billable procedures. Scribe Attestation The scribe's documentation has been prepared under my direction and personally reviewed by me in its entirety. I confirm that the note above accurately reflects all work, treatment, procedures, and medical decision making performed by me. Departure Information Dispostion Being Evaluated By Hospitalist Kyle Carrera MD (PCP) Problem Qualifiers Additional Impressions: Anemia Anemia type: unspecified type Qualified Codes: D64.9 - Anemia, unspecified
[2018-01-13] MEDS ORDERED: OXGN (22:13)
[2018-01-13] MEDS ORDERED: DEXTROSE 50% 50 ML SYR IV PRN (22:15)
[2018-01-13] MEDS ORDERED: LORAZEPAM 2 MG/ML 1 ML VIAL IV PRN (22:15)
[2018-01-13] MEDS ORDERED: GLUCOSE 10 TABS/TUBE PO PRN (22:15)
[2018-01-13] MEDS ORDERED: ICU PROTOCOL FOR HYPERGLYCEMIA PRN ×2 (22:15)
[2018-01-13] MEDS ORDERED: GLUCOSE 40% GEL 15 GM TUBE PO PRN (22:15)
[2018-01-13] MEDS ORDERED: GLUCAGON FOR INJ 1 MG VIAL SQ PRN (22:15)
[2018-01-13] MEDS ORDERED: HYDROmorphone INJ 0.5 MG/0.5 ML SYR IV PRN (22:15)
--- NOTE | 2018-01-13 22:19 | Progress Note ---
Progress Note Post Crystalloid Evaluation Date: January 13, 2018 Time: 21:30 Subjective Choking episode as per family Became unresponsive at home. Subsequent intubation by EMS. Physical Exam Vital Signs: Vital Signs Date Time Temp Pulse Resp B/P (MAP) Pulse Ox O2 Delivery O2 Flow Rate FiO2 01/13/18 22:07 33.4 54 25 129/55 98 01/13/18 21:20 35 01/13/18 21:05 Mechanical Ventilator Lungs: + rhonchi Heart: + bradycardia Peripheral Pulse: Weak Capillary Refill: Delayed (2 seconds or longer) Skin: Pallor Assessment & Plan Presence of: Septic Shock Septic shock secondary to probable aspiration pneumonia CS. Follow lactic acid IVF, Imipenem, Vancomycin continue pressor support.
[2018-01-13] MEDS ORDERED: THIAMINE HCL INJ 100 MG in SYRINGE 9 ML IV STA (22:23)
[2018-01-13 22:28] VITALS: BP 109/48; PULSE 46; TEMP 33.4; O2SAT 91; Ht 170.2 cm; Wt 60.9 kg
--- NOTE | 2018-01-13 22:31 | DIAGNOSTIC IMAGING REPORT ---
CHEST ONE VIEW PORTABLE CLINICAL HISTORY: Respiratory failure COMPARISON STUDY: 01/13/2018 FINDINGS: There is an endotracheal tube positioned at the right mainstem orifice. There is a nasogastric tube within the stomach. There are postsurgical changes of midline sternotomy and by valvular replacement. The heart is enlarged. There is a small right pleural effusion. There are progressive right basal airspace opacities. There are developing left basilar airspace opacities. There is underlying emphysema.[ IMPRESSION: 1. The endotracheal tube is positioned at the takeoff of the right mainstem bronchus 2. Nasogastric tube within the stomach 2. Small right pleural effusion 4. Worsening right basal airspace opacities. Developing left basilar airspace opacities Electronically signed by: Quinton Booth M.D. 01/13/2018 10:30 PM Dictated Date/Time: 01/13/2018 10:27 PM
[2018-01-13] MEDS ORDERED: INSULIN IV INFUSION PROTOCOL STA (23:12)
[2018-01-13] MEDS ORDERED: SODIUM BICARB 8.4% INJ 50 MEQ/50 ML SYR IV STA (23:12)
[2018-01-13] MEDS ORDERED: SEVERE STRESS LEVEL ONE (23:15)
[2018-01-13] MEDS ORDERED: INSULIN PROTOCOL GOAL RANGE ONE (23:15)
[2018-01-13] MEDS ORDERED: D5W IV SCH (23:30)
[2018-01-13] MEDS ORDERED: SODIUM BICARBONATE IV SCH (23:30)
[2018-01-13] MEDS ORDERED: [UNRECOGNIZED DRUG - OTHER] IV SCH (23:30)
[2018-01-14] VITALS (11 sets, daily range): BP systolic 103–148; BP diastolic 41–58; PULSE 54–71; TEMP 33.5–37.7; O2SAT 95–99
[2018-01-14 01:22] LABS: HEMATOCRIT 43.9 % (42-52); HEMOGLOBIN 14.2 g/dL (14.0-18.0); MEAN CELL VOLUME 92.6 fL (80-100); MEAN CORPUSCULAR HGB CONC 32.3 g/dl (32-36); MEAN PLATELET VOLUME 10.1 fL (7.4-10.4); PLATELET COUNT 285 K/uL (130-400); RED CELL DISTRIBUTION WIDTH CV 13.8 % (11.5-14.5); RED CELL DISTRIBUTION WIDTH SD 47.1 fL (36.4-46.3); WHITE BLOOD COUNT 22.97 K/uL (4.8-10.8)
[2018-01-14 01:42] LABS: ALBUMIN 2.6 gm/dl (3.4-5.0); CALCIUM 6.8 mg/dl (8.5-10.1); CREATININE 1.23 mg/dl (0.60-1.40); PHOSPHORUS 3.8 mg/dl (2.5-4.9); POTASSIUM 3.1 mmol/L (3.5-5.1); TOTAL PROTEIN 6.3 gm/dl (6.4-8.2)
[2018-01-14 01:49] LABS: BASO % 0.1 %; BASO ABS # 0.02 K/uL (0-0.2); EOS ABS # 0.01 K/uL (0-0.5); IG# 0.07 K/uL (0.00-0.02); LYMPH % 5.5 %; LYMPH ABS # 1.26 K/uL (1.2-3.4); MONO % 6.3 %; MONO ABS # 1.44 K/uL (0.11-0.59); NEUT % 87.8 %; NEUT ABS # 20.17 K/uL (1.4-6.5)
[2018-01-14] MEDS: POTASSIUM CHLR 20 MEQ / WTR 100 MEQ IV SCH ×2 (02:09→03:30)
[2018-01-14] MEDS ORDERED: NovoLIN R BOLUS FROM BAG IV ONE (02:15)
[2018-01-14] MEDS ORDERED: [UNRECOGNIZED DRUG - OTHER] IV SCH (02:15)
[2018-01-14] MEDS ORDERED: INSULIN REGULAR 250 UNITS in SODIUM CHLORIDE 0.9% 250ML 250 ML IV SCH (02:15)
[2018-01-14] MEDS ORDERED: POTASSIUM CHLORIDE IV SCH (02:15)
[2018-01-14] MEDS ORDERED: SODIUM BICARBONATE IV SCH (02:15)
[2018-01-14] MEDS ORDERED: SODIUM BICARB 8.4% INJ 50 MEQ/50 ML SYR IV STA (02:31)
[2018-01-14] MEDS ORDERED: MIDAZOLAM 125MG/250ML D5W 250 ML IV PRN (02:52)
--- NOTE | 2018-01-14 03:03 | HISTORY & PHYSICAL EXAMINATION ---
DATE OF ADMISSION: 01/13/2018 PRIMARY CARE DOCTOR: Dr. Nguyen. CHIEF COMPLAINT: Choking as per family. HISTORY OF PRESENT ILLNESS: History obtained from patient's family and records. Unable to obtain his from patient secondary to intubated state. Medical history significant for HTN, COPD, past tobacco abuse, laryngeal cancer status post surgery/radiation, unilateral vocal cord paralysis, known aspiration risk, rheumatic heart disease sp mechanical AVR, MVR, on Coumadin, PVD, hypothyroidism, daily alcohol intake. chronic anemia (baseline hemoglobin 13) Recent confinement last 08/2017 for respiratory failure secondary to COPD exacerbation secondary to aspiration. Patient has a known history of noncompliance w/ swallow evaluation instructions as per notes. Patient drinking liquor more than usual the last few days secondary to recent deaths in the family. Few hours ago, after dinner, the patient approached his partner, pointing to his neck as if he was choking. Unable to talk, subsequently became responsive. Subsequent intubation by paramedics upon arrival w/ removal of some food debris. Patient initially bradycardic as per EMS account, subsequently developed V-tach and PEA. Received IV epinephrine, defibrillation prior to arrival at the Emergency Room for cardiac arrest. Upon arrival at the ER, the patient was noted to be unresponsive. SBP 80s, O2 sat 60s. IVF, IV Cefepime IV Levophed later Epinephrine drip and Vasopressin administered for septic shock. Amiodarone started VT episode. MEDICAL HISTORY: As above. 2D echo from 08/2017 showed EF of 67%, LVH, normal LV systolic function. No prior history of alcohol withdrawal as per family. SURGERIES: Neck dissection, laryngectomy, aortic valve and mechanical valve replacement, tracheostomy. HOME MEDICATIONS: Include Coumadin, home O2, DuoNeb, levothyroxine, lisinopril, metoprolol, prednisone, rescue kit, aspirin, Lipitor, Tylenol, Proventil, Famotidine, Advair Diskus. ALLERGIES: ALLERGIC TO PENICILLIN AND SULFA. FAMILY HISTORY: Cannot be obtained. PERSONAL AND SOCIAL HISTORY: Past tobacco abuse, daily alcohol intake. Disabled. REVIEW OF SYSTEMS: Cannot be obtained. PHYSICAL EXAMINATION: VITAL SIGNS: Blood pressure was noted to be 60/44 later 80/50, pulse rate 110 later 40s, RR 16, Temperature 33.4, O2 sats 90 on mechanical ventilation. GENERAL: Noted to be unresponsive, intubated. SKIN: Pallor, cool. HEENT: Pale palpebral conjunctivae. No ptosis. ET in place. NECK: Supple, nontender.Tracheostomy scar. CHEST: Decreased effort. Rhonchi noted. HEART: Bradycardic. Mechanical murmur. ABDOMEN: Some distention, nontender. EXTREMITIES: No edema. No tenderness, no gross deformity. NEUROLOGIC: unresponsive, mid-dilated pupils. No facial asymmetry. LABORATORY DATA: Hemoglobin noted to be 13.3, hematocrit 40.4, white blood cell 87, platelets 191. Sodium noted to be 132, potassium 4.4, chloride 95-20, BUN 10, creatinine 0.86, glucose 269. Lactic acid was noted to be 9.6. ABG, pH 7.10, pCO2 of 59, pO2 370 on 100%. INR was noted to be 2.6. Patient's alcohol level was noted to be 105.6, Chest x-ray showed emphysema, effusion with persistent R basilar opacity, lower lobe. EKG as per my interpretation, rate 115, sinus tachycardia, LAD, LAFB. ST depression in the inferolateral leads. ASSESSMENT AND PLAN: 1. Acute hypoxemic, hypercapnic respiratory failure secondary to possible COPD exacerbation secondary to aspiration pneumonia. Known aspiration risk, hx laryngeal cancer status post surgery/radiation (hx noncompliance w swallow eval recommendations as per records) 2. Cardiac arrest (VT/PEA) secondary to above. ROSC post CPR/ACLS intervention IV Amiodarone drip started at the ER. 3. Septic shock secondary to lung infection 4. Encephalopathy secondary to respiratory/cardiac arrest 5. hx rheumatic heart disease status post mechanical AVR/MVR on Coumadin. INR therapeutic. 6. hyperglycemia, possibly from steroid administration, rule out DM. 7. Past tobacco abuse 8. daily alcohol intake. ICU vent management CS. Follow lactic acid IVF Imipenem, Vancomycin for now continue pressor support. Solu-Medrol, nebs RTC for possible COPD exacerbation Appropriate to hold home antihypertensives for now. TTE cardiac arrest Hold IV Amiodarone given current bradycardia check CT head once hemodynamically stable RE unresponsiveness Check hemoglobin A1c, ISS BG goal 140-180, may need basal insulin to attain goal DVT prophylaxis, IV heparin while Coumadin on hold if INR less than 2.5 given hx mechanical MVR GI prophylaxis. IV PPI while on MV Patient's critical condition was discussed with the family and the patient's life partner, Ms. Lisa Menjivar. She requests for a DNR status for patient in case of cardiac arrest. Continue with medical management for now. Total critical time was 60 minutes. VARGASD
[2018-01-14] MEDS ORDERED: ENOXAPARIN 1 MG/KG SQ SCH (03:45)
--- NOTE | 2018-01-14 05:18 | Critical Care Progress Note ---
Critical Care Progress Note Date of Service January 14, 2018. Critical Care Progress Note repeat laboratory assessment was ordered secondary to patient's critical state and need for continued close monitoring of H&H as well as electrolytes state. Patient does have an increase in his white blood cell count of questionable significance in the setting of aspiration as well as recent significant stress. He is currently treated for all the above. He has a stable H&H at this point which is certainly encouraging. The patient remains significantly acidotic. He was treated with intravenous bicarbonate. In addition, it was decided at this point to change the patient's fluids to D5 half-normal saline and 3 A of bicarb. He was found to have a new AK I on repeat laboratory assessment. In addition, his potassium did drop to 3.1. This is likely related to the recent bicarbonate infusion and need for insulin drip. The patient was replaced with 40 of IV potassium chloride. In addition, 40 mg once a potassium chloride was added to his IV fluids. Patient was found to have elevated liver enzymes consistent with acute shock liver. Around 3 AM, the patient was noted to have new myoclonic jerking of the RIGHT upper extremity. This does not appear to be bilateral and is strictly lateralized to the RIGHT upper extremity. His symptoms subside when not agitated. His symptoms did progress to bilateral upper extremity myoclonic jerking. No decorticate or decerebrate posturing was sustained. He was started on an intravenous midazolam drip to prevent possible seizure-like activity. Despite this, and in the setting of likely anoxia, repeat discussion for stabilization for transfer to CT was discussed with staff members. At this point, the patient has had weaning down of his epinephrine as well as Levophed. His vasopressin was stopped secondary to decreased urine output, and despite this, his blood pressure was maintained. In addition, intra-abdominal pressures have decreased as the patient had several bowel movements. Clinically , the patient is the most hemodynamically stable that we can hope for in the situation. Previously, discussions with colleagues as well as the patient's family were had and it was felt best the patient be stabilized prior to having any CT imaging modalities performed. Given the stabilization at this point, it was decided the patient be transferred to CT suite for CT images of the head, chest, and abdomen/pelvis. I have personally spent 80 minutes of critical care time in the direct management of this patient. This is a life/limb threatening event. This includes time spent evaluating patient, direct bedside care, chart review, placing orders, interpretation of diagnostic studies, discussion with consultants, patient, and family members, as well as other required patient management activities. This time is exclusive of all separately billable procedures, and teaching time and separate from and in addition to any other critical care service time. Thank you for this consultation allow us to be part of this patient's care. Please refer to my attending physician's documentation for any further recommendations.
[2018-01-14 06:00] LABS: HEMATOCRIT 40.2 % (42-52); HEMOGLOBIN 13.2 g/dL (14.0-18.0); IG# 0.08 K/uL (0.00-0.02); LYMPH % 4.8 %; LYMPH ABS # 0.98 K/uL (1.2-3.4); MEAN CELL VOLUME 90.7 fL (80-100); MEAN CORPUSCULAR HEMOGLOBIN 29.8 pg (25-34); MEAN CORPUSCULAR HGB CONC 32.8 g/dl (32-36); MEAN PLATELET VOLUME 9.8 fL (7.4-10.4); MONO % 2.9 %; NEUT % 91.9 %; NEUT ABS # 18.77 K/uL (1.4-6.5); PLATELET COUNT 211 K/uL (130-400); RED CELL DISTRIBUTION WIDTH SD 46.3 fL (36.4-46.3); WHITE BLOOD COUNT 20.43 K/uL (4.8-10.8)
[2018-01-14] MEDS ORDERED: IMIPENEM/CILASTATIN IV 500 MG in D5W 100ML IV SCH (06:00)
[2018-01-14 06:13] LABS: INR 2.7 (0.9-1.1); PTT PATIENT 33.7 SECONDS (21.0-31.0)
[2018-01-14] MEDS ORDERED: PROPOFOL IV EMULSION 10 MG/ML 100 ML VIAL IV PRN (06:15)
[2018-01-14] MEDS ORDERED: INSULIN ASPART 100 UNITS/ML 3 ML PEN SC SCH (06:45)
[2018-01-14 06:55] LABS: ALBUMIN 2.5 gm/dl (3.4-5.0); CALCIUM 6.8 mg/dl (8.5-10.1); CKMB 54.3 ng/ml (0.5-3.6); CREATININE 1.36 mg/dl (0.60-1.40); POTASSIUM 3.4 mmol/L (3.5-5.1); TOTAL PROTEIN 5.7 gm/dl (6.4-8.2)
--- NOTE | 2018-01-14 07:27 | DIAGNOSTIC IMAGING REPORT ---
CHEST ONE VIEW PORTABLE CLINICAL HISTORY: Respiratory distress COMPARISON STUDY: 01/13/2018 FINDINGS: The heart remains enlarged. There is a nasogastric tube with its tip projected over the stomach. There is an endotracheal tube 31 mm above the trever. There are postsurgical changes of a midline sternotomy and by valvular replacement. There are persistent bibasilar airspace opacities. There is a small right pleural effusion.[ IMPRESSION: 1. Endotracheal tube 31 mm above the trever 2. Persistent bibasal airspace opacities. Small right pleural effusion. Electronically signed by: Quinton Booth M.D. 01/14/2018 7:26 AM Dictated Date/Time: 01/14/2018 7:25 AM
[2018-01-14] MEDS: LEValbuterol HFA 15GM INHALER INH SCH ×2 (07:35→13:20)
[2018-01-14] MEDS: IPRATROPIUM BROMIDE HFA INHALER INH SCH ×2 (07:35→13:20)
[2018-01-14] MEDS ORDERED: NURSING VERBAL MED ORDER ONE (07:45)
[2018-01-14] MEDS ORDERED: D5NSS + 20MEQ KCL 1,000 ML IV SCH (07:45)
--- NOTE | 2018-01-14 07:56 | DIAGNOSTIC IMAGING REPORT ---
CT SCAN OF THE ABDOMEN AND PELVIS WITHOUT CONTRAST CLINICAL HISTORY: Respiratory arrest. Abdominal distention. Diminished urinary output. COMPARISON STUDY: No previous studies for comparison. TECHNIQUE: CT scan of the abdomen and pelvis was performed from the lung bases to the proximal femurs. Images are reviewed in the axial, sagittal, and coronal planes. IV contrast was not administered for this examination. A dose lowering technique was utilized adhering to the principles of ALARA. CT DOSE: FINDINGS: Lower chest: There is bilateral lower lobe pulmonary consolidation with air bronchograms. This is more pronounced on the right. There are small bilateral pleural effusions right greater than left. A nasogastric tube is visualized within the stomach. Liver: The unenhanced liver is normal in size, contour, and attenuation. There is no intrahepatic biliary ductal dilatation. Gallbladder: Cholelithiasis Spleen: Normal in size and attenuation. Pancreas: Unremarkable. Adrenal glands: Unremarkable. Kidneys: The unenhanced kidneys are normal in size without hydronephrosis. There is no contour deforming renal mass lesion. No renal calculi are identified. Bowel: There are distended fluid-filled loops of large and small bowel, without evidence of a transition zone. There is suspected bowel wall thickening involving the right colon. A colitis cannot be excluded. Evaluation is very limited given the possibility of intra-abdominal fat and the lack of orally and intravenously administered contrast. Peritoneum: There is trace perihepatic fluid present. No free air is identified. Vasculature: There is no evidence of abdominal aortic aneurysm. Atherosclerotic calcifications are visualized Adenopathy: None. Pelvic viscera: There is indwelling Martin catheter. There are right-sided arterial and venous femoral lines. There is an apparent rectal catheter in place. Skeletal structures: No destructive osseous lesions are seen. IMPRESSION: 1. Very difficult study to interpret given the posterior intra-abdominal fat, and the lack of intravenous and oral contrast 2. Cholelithiasis 3. Low volume ascites 4. Mildly dilated fluid-filled bowel loops without evidence of a transition. The findings are most consistent with an ileus 5. Borderline wall thickening involving the ascending colon. A colitis cannot be excluded 6. Bilateral lower lobe pulmonary consolidation with air bronchograms Electronically signed by: Quinton Booth M.D. 01/14/2018 7:55 AM Dictated Date/Time: 01/14/2018 7:46 AM
[2018-01-14] MEDS ORDERED: METHYLPREDNISOLONE IV 40 MG in SYRINGE 0 ML IV SCH (08:00)
[2018-01-14] MEDS: INSULIN ASPART 100 UNITS/ML 3 ML PEN SC SCH ×2 (08:00→11:00)
--- NOTE | 2018-01-14 08:00 | DIAGNOSTIC IMAGING REPORT ---
CT HEAD WITHOUT CONTRAST (CT) CLINICAL HISTORY: Myoclonic jerking. History of respiratory cardiac arrest. COMPARISON STUDY: No previous studies for comparison. TECHNIQUE: Axial CT of the brain is performed from the vertex to the skull base. IV contrast was not administered for this examination. A dose lowering technique was utilized adhering to the principles of ALARA. CT DOSE: 1084.61 mGy.cm FINDINGS: No intra or extra-axial mass lesions are visualized. There is no CT evidence of acute cortical infarction. There is no evidence of midline shift. There is no acute hemorrhage. No calvarial fractures are visualized. There is subtle basal ganglia diminished attenuation. An anoxic injury cannot be excluded. If the patient demonstrates a deteriorating neurological status, then an MRI of the brain should be considered in follow-up. There is nasopharyngeal edema/fluid. There is no evidence of pathologic ventricular dilatation. There is no evidence of acute sinusitis IMPRESSION: 1. Subtle basal ganglial diminished attenuation.] Anoxic injury cannot be excluded. An MRI of the brain could be obtained in follow-up as deemed clinically indicated. Electronically signed by: Quinton Booth M.D. 01/14/2018 7:59 AM Dictated Date/Time: 01/14/2018 7:55 AM
--- NOTE | 2018-01-14 08:07 | DIAGNOSTIC IMAGING REPORT ---
(CHEST) THORAX WITHOUT CLINICAL HISTORY: Respiratory cardiac arrest COMPARISON STUDY: 10/02/2017 CT DOSE: TECHNIQUE: CT of the thorax was performed from the thoracic inlet to the lung bases. Images are reviewed in the axial, sagittal, and coronal planes. IV contrast was not administered for this examination. A dose lowering technique was utilized adhering to the principles of ALARA. FINDINGS: Thyroid: Imaged portions of the thyroid gland are normal in appearance. Thoracic aorta: The thoracic aorta is normal in course and caliber, noting standard 3 vessel arch anatomy. Heart: The heart is enlarged. Lungs and pleural spaces: There is underlying pulmonary emphysema. There is stable biapical scarring. There is persistent lower lobe pulmonary consolidation with air bronchograms. There are right middle lobe atelectatic changes. There is a small right pleural effusion and trace left pleural effusion. There are scattered additional nodular airspace opacities, likely infectious/inflammatory Mediastinum: There is suspected subcarinal lymphadenopathy. There is an endotracheal tube present. There is a nasogastric tube which passes into the stomach. Breonna: There is possible hilar adenopathy. The hilar structures are difficult to evaluate with the lack of intravenous contrast Axilla: Clear. Upper abdomen: There is low volume ascites. Skeletal structures: There are no lytic or blastic osseous lesions. IMPRESSION: 1. Persistent right lower lobe consolidation with air bronchograms 2. Stable left lower lobe consolidation 3. Small right pleural effusion and trace left pleural effusion 4. Persistent adenopathy 5. Emphysema 6. Apical scarring 7. Scattered additional ill-defined nodular airspace opacities likely infectious/inflammatory Electronically signed by: Quinton Booth M.D. 01/14/2018 8:05 AM Dictated Date/Time: 01/14/2018 8:00 AM
[2018-01-14] MEDS ORDERED: FENTANYL CITRATE INJ 50 MCG/1 ML 2 ML VIAL ONE (08:25)
[2018-01-14] MEDS ORDERED: FENTANYL CITRATE INJ 50 MCG/1 ML 2 ML VIAL IV PRN ×2 (08:30→12:15)
[2018-01-14] MEDS ORDERED: MIDAZOLAM HCL 1 MG/ML 2ML VIAL IV PRN (08:30)
--- NOTE | 2018-01-14 08:41 | Critical Care Progress Note ---
Critical Care Progress Note Date of Service January 14, 2018. ICU Day ICU Day Number: [address] Barker Subjective He is sedated and ventilated. His events of the night reviewed. Primary respiratory arrest secondary to aspiration noted. Secondary cardiac arrhythmia noted. I spoke with family and cardiology AM today. He is being weaned from Propofol and pressors. Lytes actively being replaced. EEG is planned to evaluate EVENT COORDINATOR activity. He is not clinically brain but I suspect given the events he has sustained a serious injury. Family aware of the grave nature of the global situation. Objective Gen--intubated and sedated HEENT--no new focal issues Respiratory--exchange is synchronous--and adequate Cardio--rate acceptable--murmurs and mechanical valves noted--perfusion is adequate GI--active--rectal tube in place--no observable blood --urine in the gravity bag Neuro--evaluation in progress Assessment & Plan Respiratory arrest/CODE BLUE 1. Cardio--wean pressors. May require additional volume bolus 2. Respiratory--vent support--no indication for suction broncho at this time 3. GI--general support 4. Renal--track output and performance 5. F/E/N--recheck as required 6. Neuro--wean sedation as able.--EEG and neurology opinion--continued discussion with the family 7. Dispo--situation is critical--next 24-48 hours will more clearly suggest outcome. Consults & Procedures Consultants: Neurology and cardiology Data Medications: Current Inpatient Medications Medications (Trade) Dose Ordered Sig/Tony Route Start Time Stop Time Status Last Admin Dose Admin Miscellaneous Information (Consult) 1 ea UD PRN N/A 01/13/18 21:15 02/12/18 21:14 Norepinephrine Bitartrate 8 mg/ Dextrose 508 ml @ 0 mls/hr Q0M PRN IV 01/13/18 22:01 02/12/18 22:00 Vasopressin 50 units/Sodium Chloride 502.5 ml @ 24 mls/hr [id number] PRN IV 01/13/18 22:01 02/12/18 22:00 Epinephrine HCl 4 mg/Dextrose 254 ml @ 0 mls/hr Q0M PRN IV 01/13/18 22:01 02/12/18 22:00 Miscellaneous Information (Icu Protocol For Hyperglycemia) 1 ea PRN PRN N/A 01/13/18 22:15 01/15/18 22:14 Pantoprazole Sodium 40 mg/ Syringe 10 ml @ 5 mls/min DAILY IV 01/14/18 09:00 01/17/18 09:01 Glucose (Glucose 40% Gel) 15-30 GRAMS 15 GRAMS... UD PRN PO 01/13/18 22:15 02/12/18 22:14 Glucose (Glucose Chew Tab) 4-8 Tablets 4 Tabl... UD PRN PO 01/13/18 22:15 02/12/18 22:14 Dextrose (Dextrose 50% 50ML Syringe) 25-50ML 25ML FOR ... UD PRN IV 01/13/18 22:15 02/12/18 22:14 Glucagon (Glucagon Inj) 1 mg UD PRN SQ 01/13/18 22:15 02/12/18 22:14 Ipratropium [place] (Atrovent Hfa Inhaler) 4 puffs Q6R INH 01/14/18 03:00 02/13/18 02:59 01/14/18 07:35 4 PUFFS Levalbuterol (Xopenex Hfa Inhaler) 4 puffs Q6R INH 01/14/18 03:00 02/13/18 02:59 01/14/18 07:35 4 PUFFS Imipenem/ Cilastatin Sodium (Consult) 1 ea DAILY PRN N/A 01/14/18 09:00 02/13/18 08:59 Methylprednisolone Sodium Succinate 40 mg/Syringe 0.64 ml @ 1.5 mls/min Q8H IV 01/14/18 08:00 02/13/18 07:59 Insulin Glargine (Lantus Solostar Pen) 10 units HS SC 01/14/18 21:00 02/13/18 20:59 Future Hold Levothyroxine Sodium 50 mcg/ Syringe 2.5 ml @ 2 mls/min DAILY@09 IV 01/14/18 09:00 02/13/18 08:59 Hydromorphone HCl (Dilaudid Inj) 0.5 mg Q2H PRN IV 01/13/18 22:15 01/27/18 22:14 Lorazepam (Ativan Inj) 1 mg Q1H PRN IV 01/13/18 22:15 02/12/18 22:14 Insulin Aspart (novoLOG ASPART) SLIDING SCALE PCHS SC 01/14/18 08:00 02/13/18 07:59 Thiamine HCl (Vitamin B-1 Tab) 100 mg QAM NG 01/14/18 09:00 02/13/18 08:59 Folic Acid (Folvite Tab) 1 mg QAM NG 01/14/18 09:00 02/13/18 08:59 Multivitamins (Multivitamin Tab) 1 tab QAM NG 01/14/18 09:00 02/13/18 08:59 Imipenem/ Cilastatin Sodium 500 mg/Dextrose 110 ml @ 110 mls/hr Q6 IV 01/14/18 06:00 01/21/18 05:59 01/14/18 06:23 110 MLS/HR Vancomycin HCl 1000 mg/Sodium Chloride 270 ml @ 125 mls/hr Q12H IV 01/14/18 10:00 01/21/18 09:59 Insulin Human Regular 250 units/ Sodium Chloride 252.5 ml @ 0 mls/hr Q24H IV 01/14/18 02:15 02/13/18 02:14 01/14/18 02:31 2.3 MLS/HR Midazolam HCl 250 ml @ 0 mls/hr Q0M PRN IV 01/14/18 02:52 02/13/18 02:51 01/14/18 03:32 4 MLS/HR Propofol (Diprivan Iv Emulsion 100ml Vial) 1 dose UD PRN IV 01/14/18 06:15 01/17/18 06:14 01/14/18 06:24 1 DOSE Potassium Chloride/Dextrose/ Sod Cl 1,000 ml @ 100 mls/hr Q10H IV 01/14/18 07:45 02/13/18 07:44 Potassium/ Phosphorus/Sodium (Phospha 250 Neutral 155-852-130 Mg) 2 tab QID PEG 01/14/18 09:00 02/13/18 08:59 Vital Signs: Date Time Temp Pulse Resp B/P (MAP) Pulse Ox O2 Delivery O2 Flow Rate FiO2 01/14/18 07:42 40 01/14/18 06:02 35.3 59 24 148/58 (88) 99 Mechanical Ventilator 01/14/18 05:52 40 01/14/18 04:00 40 01/14/18 04:00 Mechanical Ventilator 40 5/20/18 04:00 34.7 60 21 128/54 (78) 97 Mechanical Ventilator 40.0 520/18 03:00 34.4 58 29 126/50 (75) 95 Mechanical Ventilator 20/18 02:11 40 5/20/18 02:02 34.1 58 27 127/54 (78) 96 Mechanical Ventilator 20/18 01:10 33.7 54 27 133/54 (80) 96 Mechanical Ventilator 2018 00:03 Mechanical Ventilator 40 [id number] 00:03 40 5/20/18 00:02 33.5 63 31 130/54 (79) 97 Mechanical Ventilator 01/13/18 23:15 40 01/13/18 22:28 33.4 46 20 109/48 91 Mechanical Ventilator 30 01/13/18 22:07 33.4 54 25 129/55 98 01/13/18 22:02 46 24 135/68 100 19/18 21:50 30 18 21:32 45 23 100 18 21:27 44 23 100 18 21:22 46 21 01/13/18 21:20 35 01/13/18 21:17 46 23 125/59 5/18 21:14 122/62 5/18 21:12 45 25 115/50 5/18 21:11 114/63 5/18 21:09 105/57 5/18 21:07 45 23 103/57 100 519/18 21:05 46 21 100/55 100 Mechanical Ventilator 100 18 21:04 100/55 5/18 21:02 45 22 103/45 100 519/18 21:00 90/53 519/18 20:58 179/154 519/18 20:57 46 18 99/43 100 519/18 20:54 90/48 519/18 20:52 47 20 99/43 100 519/18 20:51 49 5/19/18 20:51 91/52 519/18 20:49 101/56 5/19/18 20:47 59 22 105/55 519/18 20:45 91/48 519/18 20:43 94/53 5/19/18 20:42 55 21 95/43 5/19/18 20:41 85/51 5/19/18 20:39 86/58 5/19/18 20:37 49 22 100/65 100 5/19/18 20:34 106/70 5/19/18 20:32 57 20 76/50 100 5/19/18 20:31 57 21 91/56 100 Mechanical Ventilator 100 19/18 20:27 76/47 519/18 20:25 59 20 91/54 100 519/18 20:23 84/54 519/18 20:21 88/65 519/18 20:20 75 20 100 519/18 20:19 98/69 519/18 20:18 88 01/13/18 20:17 145/81 519/18 20:15 94 20 201/100 87 519/18 20:13 217/113 519/18 20:11 216/117 519/18 20:10 92 20 100 519/18 20:09 209/114 519/18 20:07 197/103 519/18 20:05 91 01/13/18 20:05 104 4 182/97 90 519/18 20:03 176/99 519/18 20:01 114/22 5/18 20:00 124 55 75 519/18 19:59 112/64 519/18 19:57 71/16 519/18 19:55 80 16 51/34 93 519/18 19:55 77 19/18 19:53 61/40 519/18 19:52 62/44 519/18 19:50 73 16 49/33 96 519/18 19:46 71/48 5/19/18 19:45 85 16 519/18 19:44 100 519/18 19:44 77/44 5/19/18 19:42 91 60/44 5/19/18 19:40 100 16 5/19/18 19:39 108 519/18 19:38 77/56 519/18 19:37 84/61 519/18 19:35 187 16 67 5/19/18 19:34 108 84/61 91 Mechanical Ventilator 100 5/18 19:29 63 Mechanical Ventilator 01/13/18 19:29 Mechanical Ventilator Laboratory Results: Last 24 Hours Test 01/13/18 17:40 01/13/18 19:36 01/13/18 19:40 01/13/18 20:18 Free Thyroxine 1.03 ng/dl White Blood Count 12.87 K/uL Red Blood Count 4.50 M/uL Hemoglobin 13.3 g/dL Hematocrit 42.4 % Mean Corpuscular Volume 94.2 fL Mean Corpuscular Hemoglobin 29.6 pg Mean Corpuscular Hemoglobin Concent 31.4 g/dl Platelet Count 191 K/uL Mean Platelet Volume 10.3 fL RDW Standard Deviation 46.5 fL RDW Coefficient of Variation 13.6 % Neutrophils % (Manual) 40.6 % Lymphocytes % (Manual) 12.6 % Variant Lymphocytes % (manual) 40.5 % Monocytes % (Manual) 3.6 % Eosinophils % (Manual) 0.9 % Myelocytes % 0.9 % Blast Cells % 0.9 % Neutrophils # (Manual) 5.23 K/uL Total Absolute Neutrophils 5.23 K/uL Lymphocytes # (Manual) 1.62 K/uL Absolute Variant Lymphocytes 5.21 K/uL Total Absolute Lymphocytes 6.83 K/uL Monocytes # (Manual) 0.46 K/uL Eosinophils # (Manual) 0.12 K/uL Myelocytes # 0.12 K/uL Blast Cells # 0.12 K/uL Echinocytes 1+ Prothrombin Time 26.7 SECONDS Prothromb Time International Ratio 2.6 Activated Partial Thromboplast Time 42.5 SECONDS Partial Thromboplastin Ratio 1.6 Venous Blood pH 7.09 Venous Blood Partial Pressure CO2 92 mmHg Venous Blood Partial Pressure O2 47 mmHg Venous Blood HCO3 27 mmol/L Venous Blood Oxygen Saturation 64.0 % Venous Blood Base Excess -4.3 mEq/L Sodium Level 132 mmol/L Potassium Level 4.4 mmol/L Chloride Level 95 mmol/L Carbon Dioxide Level 23 mmol/L Anion Gap 14.0 mmol/L Blood Urea Nitrogen 10 mg/dl Creatinine 0.86 mg/dl Estimated GFR () 109.2 Estimated GFR (Non- 94.3 BUN/Creatinine Ratio 11.4 Random Glucose 269 mg/dl Osmolality 325 mOsm/kg Lactic Acid Level 9.6 mmol/L Calcium Level 7.6 mg/dl Magnesium Level 5.6 mg/dl Total Bilirubin 0.5 mg/dl Direct Bilirubin 0.2 mg/dl Aspartate Amino Transf (AST/SGOT) 69 U/L Alanine Aminotransferase (ALT/SGPT) 38 U/L Alkaline Phosphatase 75 U/L Total Creatine Kinase 126 U/L Creatine Kinase MB 1.8 ng/ml Creatine Kinase MB Ratio 1.4 Troponin I 0.028 ng/ml Total Protein 5.5 gm/dl Albumin 2.5 gm/dl Procalcitonin 0.10 ng/ml Thyroid Stimulating Hormone (TSH) 4.600 uIu/ml Bedside Blood Gas pH (LAB) 7.10 Bedside Blood Gas pCO2 (LAB) 59 mmHg Bedside Blood Gas pO2 (LAB) 370 mmHg Bedside Blood Gas HCO3 (LAB) 18 meq/L Bedside Blood Gas Total CO2 20 mEq/l Bedside Blood Gas Base Excess (LAB) -11.0 meq/L Bedside Blood Gas O2 Saturation 100.0 % Test 01/13/18 20:49 01/13/18 21:33 01/13/18 23:04 01/13/18 23:09 Bedside Blood Gas pH (LAB) 7.14 7.19 Bedside Blood Gas pCO2 (LAB) 49 mmHg 30 mmHg Bedside Blood Gas pO2 (LAB) > 420 mmHg 57 mmHg Bedside Blood Gas HCO3 (LAB) 17 meq/L 12 meq/L Bedside Blood Gas Total CO2 18 mEq/l 13 mEq/l Bedside Blood Gas Base Excess (LAB) -13.0 meq/L -17.0 meq/L Bedside Blood Gas O2 Saturation 100.0 % 89.0 % Lactic Acid Level 10.1 mmol/L Total Triiodothyronine 0.58 ng/ml Ethyl Alcohol mg/dL 105.6 mg/dl Blood Gas Sample Site Art Line Teddy Test NA Oxygen Delivery Device Ventilator Bedside Oxygen Rate (breaths/min) 20 Blood Gas Minute Ventilation 11.3 Bedside FiO2 30 % Blood Gas Tidal Volume 500 Blood Gas PEEP 5 Bedside Glucose (other) 249 mg/dl Test 01/14/18 01:04 01/14/18 01:28 01/14/18 02:05 01/14/18 02:30 White Blood Count 22.97 K/uL Red Blood Count 4.74 M/uL Hemoglobin 14.2 g/dL Hematocrit 43.9 % Mean Corpuscular Volume 92.6 fL Mean Corpuscular Hemoglobin 30.0 pg Mean Corpuscular Hemoglobin Concent 32.3 g/dl Platelet Count 285 K/uL Mean Platelet Volume 10.1 fL Neutrophils (%) (Auto) 87.8 % Lymphocytes (%) (Auto) 5.5 % Monocytes (%) (Auto) 6.3 % Eosinophils (%) (Auto) 0.0 % Basophils (%) (Auto) 0.1 % Neutrophils # (Auto) 20.17 K/uL Lymphocytes # (Auto) 1.26 K/uL Monocytes # (Auto) 1.44 K/uL Eosinophils # (Auto) 0.01 K/uL Basophils # (Auto) 0.02 K/uL RDW Standard Deviation 47.1 fL RDW Coefficient of Variation 13.8 % Immature Granulocyte % (Auto) 0.3 % Immature Granulocyte # (Auto) 0.07 K/uL Sodium Level 137 mmol/L Potassium Level 3.1 mmol/L Chloride Level 101 mmol/L Carbon Dioxide Level 16 mmol/L Anion Gap 20.0 mmol/L Blood Urea Nitrogen 13 mg/dl Creatinine 1.23 mg/dl Est Creatinine Clear Calc Drug Dose 56.2 ml/min Estimated GFR () 73.5 Estimated GFR (Non- 63.4 BUN/Creatinine Ratio 10.5 Random Glucose 281 mg/dl Lactic Acid Level 10.3 mmol/L Calcium Level 6.8 mg/dl Phosphorus Level 3.8 mg/dl Magnesium Level 2.3 mg/dl Total Bilirubin 0.7 mg/dl Direct Bilirubin 0.2 mg/dl Aspartate Amino Transf (AST/SGOT) 214 U/L Alanine Aminotransferase (ALT/SGPT) 88 U/L Alkaline Phosphatase 181 U/L Total Protein 6.3 gm/dl Albumin 2.6 gm/dl Bedside Glucose (other) 289 mg/dl Blood Gas Sample Site Art Line Bedside Blood Gas pH (LAB) 7.27 Bedside Blood Gas pCO2 (LAB) 32 mmHg Bedside Blood Gas pO2 (LAB) 60 mmHg Bedside Blood Gas HCO3 (LAB) 15 meq/L Bedside Blood Gas Total CO2 17 mEq/l Bedside Blood Gas Base Excess (LAB) -12.0 meq/L Bedside Blood Gas O2 Saturation 91.0 % Teddy Test NA Oxygen Delivery Device Ventilator Bedside Oxygen Rate (breaths/min) 20 Blood Gas Minute Ventilation 13 Bedside FiO2 40 % Blood Gas Tidal Volume 500 Blood Gas PEEP 5 Stool Occult Blood POSITIVE Test 01/14/18 03:38 01/14/18 04:33 01/14/18 05:09 01/14/18 05:49 Bedside Glucose (other) 286 mg/dl 284 mg/dl Blood Gas Sample Site Art Line Bedside Blood Gas pH (LAB) 7.41 Bedside Blood Gas pCO2 (LAB) 36 mmHg Bedside Blood Gas pO2 (LAB) 68 mmHg Bedside Blood Gas HCO3 (LAB) 23 meq/L Bedside Blood Gas Total CO2 24 mEq/l Bedside Blood Gas Base Excess (LAB) -2.0 meq/L Bedside Blood Gas O2 Saturation 95.0 % Teddy Test Pass Oxygen Delivery Device Ventilator Bedside Oxygen Rate (breaths/min) 20 Blood Gas Minute Ventilation 9.3 Bedside FiO2 40 % Blood Gas Tidal Volume 500 Blood Gas PEEP 5 White Blood Count 20.43 K/uL Red Blood Count 4.43 M/uL Hemoglobin 13.2 g/dL Hematocrit 40.2 % Mean Corpuscular Volume 90.7 fL Mean Corpuscular Hemoglobin 29.8 pg Mean Corpuscular Hemoglobin Concent 32.8 g/dl Platelet Count 211 K/uL Mean Platelet Volume 9.8 fL Neutrophils (%) (Auto) 91.9 % Lymphocytes (%) (Auto) 4.8 % Monocytes (%) (Auto) 2.9 % Eosinophils (%) (Auto) 0.0 % Basophils (%) (Auto) 0.0 % Neutrophils # (Auto) 18.77 K/uL Lymphocytes # (Auto) 0.98 K/uL Monocytes # (Auto) 0.60 K/uL Eosinophils # (Auto) 0.00 K/uL Basophils # (Auto) 0.00 K/uL RDW Standard Deviation 46.3 fL RDW Coefficient of Variation 14.0 % Immature Granulocyte % (Auto) 0.4 % Immature Granulocyte # (Auto) 0.08 K/uL Prothrombin Time 28.1 SECONDS Prothromb Time International Ratio 2.7 Activated Partial Thromboplast Time 33.7 SECONDS Partial Thromboplastin Ratio 1.3 Sodium Level 140 mmol/L Potassium Level 3.4 mmol/L Chloride Level 105 mmol/L Carbon Dioxide Level 26 mmol/L Anion Gap 9.0 mmol/L Blood Urea Nitrogen 17 mg/dl Creatinine 1.36 mg/dl Est Creatinine Clear Calc Drug Dose 49.8 ml/min Estimated GFR () 65.1 Estimated GFR (Non- 56.2 BUN/Creatinine Ratio 12.8 Random Glucose 248 mg/dl Lactic Acid Level 4.6 mmol/L Calcium Level 6.8 mg/dl Phosphorus Level 1.0 mg/dl Magnesium Level 1.9 mg/dl Total Bilirubin 0.8 mg/dl Direct Bilirubin 0.2 mg/dl Aspartate Amino Transf (AST/SGOT) 183 U/L Alanine Aminotransferase (ALT/SGPT) 87 U/L Alkaline Phosphatase 125 U/L Total Creatine Kinase 939 U/L Creatine Kinase MB 54.3 ng/ml Creatine Kinase MB Ratio 5.8 Troponin I 6.790 ng/ml Total Protein 5.7 gm/dl Albumin 2.5 gm/dl Test 01/14/18 06:00 01/14/18 06:30 01/14/18 06:46 Bedside Glucose (other) 253 mg/dl 225 mg/dl Urine Color YELLOW Urine Appearance TURBID Urine pH 5.5 Urine Specific [place] 1.015 Urine Protein 3+ Urine Glucose (UA) 1+ Urine Ketones NEG Urine Occult Blood 3+ Urine Nitrite NEG Urine Bilirubin NEG Urine Urobilinogen NEG Urine Leukocyte Esterase NEG Urine WBC (Auto) >30 /hpf Urine RBC (Auto) 10-30 /hpf Urine Hyaline Casts (Auto) 5-10 /lpf Urine Epithelial Cells (Auto) 20-30 /lpf Urine Bacteria (Auto) NEG Urine Pathogenic Casts 0-3 GRANULAR CASTS /lpf Urine Yeast (Auto) Urine Opiates Screen NEG Urine Methadone, Qualitative NEG Urine Barbiturates NEG Urine Phencyclidine (PCP) Level NEG Ur Amphetamine/Methamphetamine NEG MDMA (Ecstasy) Screen NEG Urine Benzodiazepines Screen POS Urine Cocaine Metabolite NEG Urine Marijuana (THC) NEG
--- NOTE | 2018-01-14 08:49 | Cardiology Follow-Up ---
Subjective General Date of Service: January 14, 2018. Chief Complaint: Follow-up cardiopulmonary arrest Pt evaluation today including: conversation w/ patient, conversation w/ family , physical exam, conversation w/ claims consultant History of Present Illness The patient is a 62 year old male seen in cardiology follow-up. After transfer to the intensive care unit last evening no significant additional arrhythmias are noted on telemetry. Specifically no additional VT since 195 on 01/13/18. Amiodarone has been discontinued, epinephrine was weaned and discontinued overnight, and while I was at the bedside this morning norepinephrine was discontinued. Patient remains on low-dose propofol which is being weaned to better allow assessment of his neurologic status. He did begin to have tonic-clonic movement of his right upper extremity overnight. CT of the brain revealed no definite abnormality. Importantly, there is no evidence of intracranial hemorrhage given his history of chronic anticoagulation and loss of postural tone. Patient's oxygenation levels are stable with an FiO2 of 40% on the ventilator. Patient had a significant acidosis on arrival which has since improved with supportive care. Allergies Coded Allergies: Penicillins (Verified Allergy, Severe, FACE SWELLS, 10/17/17) Sulfa Drugs (Verified Allergy, Unknown, ITCH, 10/17/17) Social History Smoking Status: Former Smoker Hx Tobacco Use In Past Year?: No Hx Alcohol Use - Type And Amou: Yes (2-3 beers/day ) Hx Substance Use - Type And Am: No Problem List Medical Problems: (1) Acidosis Status: Acute (2) Anemia Status: Acute (3) Bilateral pneumonia Status: Acute (4) Cardiac arrest Status: Acute (5) COPD, moderate Status: Chronic (6) Failure of outpatient treatment Status: Acute (7) Hypothyroidism Status: Chronic (8) Hypoxemia Status: Acute (9) Multifocal pneumonia Status: Acute (10) Pneumonia Status: Acute (11) Respiratory arrest Status: Acute (12) Sepsis Status: Acute Physical Exam Vital Signs Last Vital Signs Documentation Date Time Temp Pulse Resp B/P (MAP) Pulse Ox O2 Delivery O2 Flow Rate FiO2 01/14/18 07:42 40 01/14/18 06:02 35.3 59 24 148/58 (88) 99 Mechanical Ventilator 01/14/18 04:00 40.0 Physical Exam Constitutional: Level of Distress: chronically ill Neck: supple Lungs: Auscultation: pertinent finding (Decreased breath sounds in the bases) Cardiovascular: Heart Auscultation: RRR, pertinent finding (Prosthetic heart sounds noted) Abdomen: Inspection & Palpation: soft, non-distended, no masses Extremities: no edema Neurologic: Gait & Station: pertinent finding (Tonic movements in the right upper extremity, his full movements at present .) Assessment and Plan Assessment and Plan CT of the chest notable for concerns of bilateral pneumonia with air bronchograms CT the brain without any acute findings. Repeat EKG this morning pending Transthoracic echocardiogram pending IMPRESSION: 62-year-old male 1. Apparent aspiration event with global hypoxia followed by arrhythmia and circulatory arrest. -Patient's blood pressure and oxygenation is stabilized. There is concern for anoxic brain injury. Creatinine was relatively stable this morning, but his urine output over 4 hours was only 125 mL this morning 2. 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 History of rheumatic heart valve disease status post mechanical AVR, mechanical MVR in 2013 RECOMMENDATIONS: Repeat EKG. Await formal echocardiogram. Biventricular function was grossly normal on acute study in the emergency room last night. Patient did have ST segment depression EKG on presentation last night but I think this was more of a global ischemia pattern due to profound hypoxia and hypotension rather than an acute intracoronary plaque rupture. INR is at goal, present, I think we can continue to just follow his INR without addition of anticoagulation for his mechanical valves for DVT prophylaxis. Agree with antibiotics for coverage of aspiration pneumonia. Case discussed with nursing and Dr Barker of critical care. An EEG is planned for this morning. Laboratory Results Last 24 Hours Test 01/13/18 17:40 01/13/18 19:36 01/13/18 19:40 01/13/18 20:18 Free Thyroxine 1.03 ng/dl White Blood Count 12.87 K/uL Red Blood Count 4.50 M/uL Hemoglobin 13.3 g/dL Hematocrit 42.4 % Mean Corpuscular Volume 94.2 fL Mean Corpuscular Hemoglobin 29.6 pg Mean Corpuscular Hemoglobin Concent 31.4 g/dl Platelet Count 191 K/uL Mean Platelet Volume 10.3 fL RDW Standard Deviation 46.5 fL RDW Coefficient of Variation 13.6 % Neutrophils % (Manual) 40.6 % Lymphocytes % (Manual) 12.6 % Variant Lymphocytes % (manual) 40.5 % Monocytes % (Manual) 3.6 % Eosinophils % (Manual) 0.9 % Myelocytes % 0.9 % Blast Cells % 0.9 % Neutrophils # (Manual) 5.23 K/uL Total Absolute Neutrophils 5.23 K/uL Lymphocytes # (Manual) 1.62 K/uL Absolute Variant Lymphocytes 5.21 K/uL Total Absolute Lymphocytes 6.83 K/uL Monocytes # (Manual) 0.46 K/uL Eosinophils # (Manual) 0.12 K/uL Myelocytes # 0.12 K/uL Blast Cells # 0.12 K/uL Echinocytes 1+ Prothrombin Time 26.7 SECONDS Prothromb Time International Ratio 2.6 Activated Partial Thromboplast Time 42.5 SECONDS Partial Thromboplastin Ratio 1.6 Venous Blood pH 7.09 Venous Blood Partial Pressure CO2 92 mmHg Venous Blood Partial Pressure O2 47 mmHg Venous Blood HCO3 27 mmol/L Venous Blood Oxygen Saturation 64.0 % Venous Blood Base Excess -4.3 mEq/L Sodium Level 132 mmol/L Potassium Level 4.4 mmol/L Chloride Level 95 mmol/L Carbon Dioxide Level 23 mmol/L Anion Gap 14.0 mmol/L Blood Urea Nitrogen 10 mg/dl Creatinine 0.86 mg/dl Estimated GFR () 109.2 Estimated GFR (Non- 94.3 BUN/Creatinine Ratio 11.4 Random Glucose 269 mg/dl Osmolality 325 mOsm/kg Lactic Acid Level 9.6 mmol/L Calcium Level 7.6 mg/dl Magnesium Level 5.6 mg/dl Total Bilirubin 0.5 mg/dl Direct Bilirubin 0.2 mg/dl Aspartate Amino Transf (AST/SGOT) 69 U/L Alanine Aminotransferase (ALT/SGPT) 38 U/L Alkaline Phosphatase 75 U/L Total Creatine Kinase 126 U/L Creatine Kinase MB 1.8 ng/ml Creatine Kinase MB Ratio 1.4 Troponin I 0.028 ng/ml Total Protein 5.5 gm/dl Albumin 2.5 gm/dl Procalcitonin 0.10 ng/ml Thyroid Stimulating Hormone (TSH) 4.600 uIu/ml Bedside Blood Gas pH (LAB) 7.10 Bedside Blood Gas pCO2 (LAB) 59 mmHg Bedside Blood Gas pO2 (LAB) 370 mmHg Bedside Blood Gas HCO3 (LAB) 18 meq/L Bedside Blood Gas Total CO2 20 mEq/l Bedside Blood Gas Base Excess (LAB) -11.0 meq/L Bedside Blood Gas O2 Saturation 100.0 % Test 01/13/18 20:49 01/13/18 21:33 01/13/18 23:04 01/13/18 23:09 Bedside Blood Gas pH (LAB) 7.14 7.19 Bedside Blood Gas pCO2 (LAB) 49 mmHg 30 mmHg Bedside Blood Gas pO2 (LAB) > 420 mmHg 57 mmHg Bedside Blood Gas HCO3 (LAB) 17 meq/L 12 meq/L Bedside Blood Gas Total CO2 18 mEq/l 13 mEq/l Bedside Blood Gas Base Excess (LAB) -13.0 meq/L -17.0 meq/L Bedside Blood Gas O2 Saturation 100.0 % 89.0 % Lactic Acid Level 10.1 mmol/L Total Triiodothyronine 0.58 ng/ml Ethyl Alcohol mg/dL 105.6 mg/dl Blood Gas Sample Site Art Line Teddy Test NA Oxygen Delivery Device Ventilator Bedside Oxygen Rate (breaths/min) 20 Blood Gas Minute Ventilation 11.3 Bedside FiO2 30 % Blood Gas Tidal Volume 500 Blood Gas PEEP 5 Bedside Glucose (other) 249 mg/dl Test 01/14/18 01:04 01/14/18 01:28 01/14/18 02:05 01/14/18 02:30 White Blood Count 22.97 K/uL Red Blood Count 4.74 M/uL Hemoglobin 14.2 g/dL Hematocrit 43.9 % Mean Corpuscular Volume 92.6 fL Mean Corpuscular Hemoglobin 30.0 pg Mean Corpuscular Hemoglobin Concent 32.3 g/dl Platelet Count 285 K/uL Mean Platelet Volume 10.1 fL Neutrophils (%) (Auto) 87.8 % Lymphocytes (%) (Auto) 5.5 % Monocytes (%) (Auto) 6.3 % Eosinophils (%) (Auto) 0.0 % Basophils (%) (Auto) 0.1 % Neutrophils # (Auto) 20.17 K/uL Lymphocytes # (Auto) 1.26 K/uL Monocytes # (Auto) 1.44 K/uL Eosinophils # (Auto) 0.01 K/uL Basophils # (Auto) 0.02 K/uL RDW Standard Deviation 47.1 fL RDW Coefficient of Variation 13.8 % Immature Granulocyte % (Auto) 0.3 % Immature Granulocyte # (Auto) 0.07 K/uL Sodium Level 137 mmol/L Potassium Level 3.1 mmol/L Chloride Level 101 mmol/L Carbon Dioxide Level 16 mmol/L Anion Gap 20.0 mmol/L Blood Urea Nitrogen 13 mg/dl Creatinine 1.23 mg/dl Est Creatinine Clear Calc Drug Dose 56.2 ml/min Estimated GFR () 73.5 Estimated GFR (Non- 63.4 BUN/Creatinine Ratio 10.5 Random Glucose 281 mg/dl Lactic Acid Level 10.3 mmol/L Calcium Level 6.8 mg/dl Phosphorus Level 3.8 mg/dl Magnesium Level 2.3 mg/dl Total Bilirubin 0.7 mg/dl Direct Bilirubin 0.2 mg/dl Aspartate Amino Transf (AST/SGOT) 214 U/L Alanine Aminotransferase (ALT/SGPT) 88 U/L Alkaline Phosphatase 181 U/L Total Protein 6.3 gm/dl Albumin 2.6 gm/dl Bedside Glucose (other) 289 mg/dl Blood Gas Sample Site Art Line Bedside Blood Gas pH (LAB) 7.27 Bedside Blood Gas pCO2 (LAB) 32 mmHg Bedside Blood Gas pO2 (LAB) 60 mmHg Bedside Blood Gas HCO3 (LAB) 15 meq/L Bedside Blood Gas Total CO2 17 mEq/l Bedside Blood Gas Base Excess (LAB) -12.0 meq/L Bedside Blood Gas O2 Saturation 91.0 % Teddy Test NA Oxygen Delivery Device Ventilator Bedside Oxygen Rate (breaths/min) 20 Blood Gas Minute Ventilation 13 Bedside FiO2 40 % Blood Gas Tidal Volume 500 Blood Gas PEEP 5 Stool Occult Blood POSITIVE Test 01/14/18 03:38 01/14/18 04:33 01/14/18 05:09 01/14/18 05:49 Bedside Glucose (other) 286 mg/dl 284 mg/dl Blood Gas Sample Site Art Line Bedside Blood Gas pH (LAB) 7.41 Bedside Blood Gas pCO2 (LAB) 36 mmHg Bedside Blood Gas pO2 (LAB) 68 mmHg Bedside Blood Gas HCO3 (LAB) 23 meq/L Bedside Blood Gas Total CO2 24 mEq/l Bedside Blood Gas Base Excess (LAB) -2.0 meq/L Bedside Blood Gas O2 Saturation 95.0 % Teddy Test Pass Oxygen Delivery Device Ventilator Bedside Oxygen Rate (breaths/min) 20 Blood Gas Minute Ventilation 9.3 Bedside FiO2 40 % Blood Gas Tidal Volume 500 Blood Gas PEEP 5 White Blood Count 20.43 K/uL Red Blood Count 4.43 M/uL Hemoglobin 13.2 g/dL Hematocrit 40.2 % Mean Corpuscular Volume 90.7 fL Mean Corpuscular Hemoglobin 29.8 pg Mean Corpuscular Hemoglobin Concent 32.8 g/dl Platelet Count 211 K/uL Mean Platelet Volume 9.8 fL Neutrophils (%) (Auto) 91.9 % Lymphocytes (%) (Auto) 4.8 % Monocytes (%) (Auto) 2.9 % Eosinophils (%) (Auto) 0.0 % Basophils (%) (Auto) 0.0 % Neutrophils # (Auto) 18.77 K/uL Lymphocytes # (Auto) 0.98 K/uL Monocytes # (Auto) 0.60 K/uL Eosinophils # (Auto) 0.00 K/uL Basophils # (Auto) 0.00 K/uL RDW Standard Deviation 46.3 fL RDW Coefficient of Variation 14.0 % Immature Granulocyte % (Auto) 0.4 % Immature Granulocyte # (Auto) 0.08 K/uL Prothrombin Time 28.1 SECONDS Prothromb Time International Ratio 2.7 Activated Partial Thromboplast Time 33.7 SECONDS Partial Thromboplastin Ratio 1.3 Sodium Level 140 mmol/L Potassium Level 3.4 mmol/L Chloride Level 105 mmol/L Carbon Dioxide Level 26 mmol/L Anion Gap 9.0 mmol/L Blood Urea Nitrogen 17 mg/dl Creatinine 1.36 mg/dl Est Creatinine Clear Calc Drug Dose 49.8 ml/min Estimated GFR () 65.1 Estimated GFR (Non- 56.2 BUN/Creatinine Ratio 12.8 Random Glucose 248 mg/dl Lactic Acid Level 4.6 mmol/L Calcium Level 6.8 mg/dl Phosphorus Level 1.0 mg/dl Magnesium Level 1.9 mg/dl Total Bilirubin 0.8 mg/dl Direct Bilirubin 0.2 mg/dl Aspartate Amino Transf (AST/SGOT) 183 U/L Alanine Aminotransferase (ALT/SGPT) 87 U/L Alkaline Phosphatase 125 U/L Total Creatine Kinase 939 U/L Creatine Kinase MB 54.3 ng/ml Creatine Kinase MB Ratio 5.8 Troponin I 6.790 ng/ml Total Protein 5.7 gm/dl Albumin 2.5 gm/dl Test 01/14/18 06:00 01/14/18 06:30 01/14/18 06:46 Bedside Glucose (other) 253 mg/dl 225 mg/dl Urine Color YELLOW Urine Appearance TURBID Urine pH 5.5 Urine Specific [place] 1.015 Urine Protein 3+ Urine Glucose (UA) 1+ Urine Ketones NEG Urine Occult Blood 3+ Urine Nitrite NEG Urine Bilirubin NEG Urine Urobilinogen NEG Urine Leukocyte Esterase NEG Urine WBC (Auto) >30 /hpf Urine RBC (Auto) 10-30 /hpf Urine Hyaline Casts (Auto) 5-10 /lpf Urine Epithelial Cells (Auto) 20-30 /lpf Urine Bacteria (Auto) NEG Urine Pathogenic Casts 0-3 GRANULAR CASTS /lpf Urine Yeast (Auto) Urine Opiates Screen NEG Urine Methadone, Qualitative NEG Urine Barbiturates NEG Urine Phencyclidine (PCP) Level NEG Ur Amphetamine/Methamphetamine NEG MDMA (Ecstasy) Screen NEG Urine Benzodiazepines Screen POS Urine Cocaine Metabolite NEG Urine Marijuana (THC) NEG
[2018-01-14] MEDS ORDERED: LEVOTHYROXINE SODIUM INJ 50 MCG in SYRINGE 0 ML IV SCH (09:00)
[2018-01-14] MEDS ORDERED: MULTIVITAMIN TAB NG SCH (09:00)
[2018-01-14] MEDS ORDERED: PANTOprazole INJ 40 MG in SYRINGE 0 ML IV SCH (09:00)
[2018-01-14] MEDS ORDERED: HEPARIN SOD 5000 UNIT/0.5 ML CARP SQ SCH (09:00)
[2018-01-14] MEDS ORDERED: THIAMINE HCL 100 MG TAB NG SCH (09:00)
[2018-01-14] MEDS ORDERED: ENOXAPARIN 60 MG/0.6 ML SYR SQ SCH (09:00)
[2018-01-14] MEDS ORDERED: IMIPENEM/CILASTATIN CONSULT ACTIVE PRN (09:00)
[2018-01-14] MEDS: POT PHOSPHATE MONOBASIC W/ SOD TAB PEG SCH ×2 (09:49→12:34)
[2018-01-14] MEDS: VANCOMYCIN IV 1,000 MG in SODIUM CHLORIDE 0.9% 250ML 250 ML IV SCH ×2 (09:50→12:33)
--- NOTE | 2018-01-14 10:17 | Cardiology Progress Note ---
Cardiology Progress Note Date of Service January 14, 2018. Cardiology Progress Note EKG this morning much improved with resolution of the diffuse ST segment depression noted last evening. The corrected QT interval is prolonged. We will follow this. Overall, favorable improvement in EKG .
[2018-01-14] MEDS ORDERED: LEVETIRACETAM IV 1,000 MG in DEXTROSE 5% 100ML 100 ML IV ONE (10:30)
--- NOTE | 2018-01-14 10:43 | EEG Procedure Note ---
EEG Procedure Note Date of Service January 14, 2018. Start / End Times Start Time: 9:25 a.m. End Time: 9:45 a.m. Referring Physician Hadley Taylor PAC History Status post cardiac arrest, possible seizure activity Home Medication List Scheduled Aspirin (Aspirin Ec), 81 MG PO DAILY Atorvastatin (Lipitor), 10 MG PO DAILY Famotidine (Famotidine), 20 MG PO QAM Fluticasone Prop/Salmeterol (Advair Diskus 500-50 Mcg/Dose), 1 PUFF INH BID Home O2 Therapy (Oxygen), 2 LITERS NA HS Levothyroxine Sodium (Levothyroxine Sodium), 100 MCG PO DAILY Lisinopril (Lisinopril), 20 MG PO DAILY Metoprolol Succinate (Metoprolol Succinate ER), 25 MG PO DAILY Warfarin Sodium (Warfarin Sodium), 1 DOSE PO UD Scheduled PRN Acetaminophen (Tylenol), 650 MG PO Q8 PRN for Pain Albuterol Sulfate (Proventil Hfa), 2 PUFFS INH UD PRN for Shortness of Breath Ipratropium-Albuterol (Duoneb), 1 TREATMENT INH Q6H PRN for SOB/Wheezing Prednisone (Prednisone), 20 MG PO UD PRN for Rescue Kit Inpatient Medication List Current Inpatient Medications Medications (Trade) Dose Ordered Sig/Tony Route Start Time Stop Time Status Last Admin Dose Admin Miscellaneous Information (Consult) 1 ea UD PRN N/A 01/13/18 21:15 02/12/18 21:14 Norepinephrine Bitartrate 8 mg/ Dextrose 508 ml @ 0 mls/hr Q0M PRN IV 01/13/18 22:01 02/12/18 22:00 Vasopressin 50 units/Sodium Chloride 502.5 ml @ 24 mls/hr [id number] PRN IV 01/13/18 22:01 02/12/18 22:00 Epinephrine HCl 4 mg/Dextrose 254 ml @ 0 mls/hr Q0M PRN IV 01/13/18 22:01 02/12/18 22:00 Miscellaneous Information (Icu Protocol For Hyperglycemia) 1 ea PRN PRN N/A 01/13/18 22:15 01/15/18 22:14 Pantoprazole Sodium 40 mg/ Syringe 10 ml @ 5 mls/min DAILY IV 01/14/18 09:00 01/17/18 09:01 01/14/18 08:30 5 MLS/MIN Glucose (Glucose 40% Gel) 15-30 GRAMS 15 GRAMS... UD PRN PO 01/13/18 22:15 02/12/18 22:14 Glucose (Glucose Chew Tab) 4-8 Tablets 4 Tabl... UD PRN PO 01/13/18 22:15 02/12/18 22:14 Dextrose (Dextrose 50% 50ML Syringe) 25-50ML 25ML FOR ... UD PRN IV 01/13/18 22:15 02/12/18 22:14 Glucagon (Glucagon Inj) 1 mg UD PRN SQ 01/13/18 22:15 02/12/18 22:14 Ipratropium [place] (Atrovent Hfa Inhaler) 4 puffs Q6R INH 01/14/18 03:00 02/13/18 02:59 01/14/18 07:35 4 PUFFS Levalbuterol (Xopenex Hfa Inhaler) 4 puffs Q6R INH 01/14/18 03:00 02/13/18 02:59 01/14/18 07:35 4 PUFFS Imipenem/ Cilastatin Sodium (Consult) 1 ea DAILY PRN N/A 01/14/18 09:00 02/13/18 08:59 Methylprednisolone Sodium Succinate 40 mg/Syringe 0.64 ml @ 1.5 mls/min Q8H IV 01/14/18 08:00 02/13/18 07:59 01/14/18 08:31 1.5 MLS/MIN Insulin Glargine (Lantus Solostar Pen) 10 units HS SC 01/14/18 21:00 02/13/18 20:59 Future Hold Levothyroxine Sodium 50 mcg/ Syringe 2.5 ml @ 2 mls/min DAILY@09 IV 01/14/18 09:00 02/13/18 08:59 01/14/18 08:31 2 MLS/MIN Hydromorphone HCl (Dilaudid Inj) 0.5 mg Q2H PRN IV 01/13/18 22:15 01/27/18 22:14 Lorazepam (Ativan Inj) 1 mg Q1H PRN IV 01/13/18 22:15 02/12/18 22:14 Insulin Aspart (novoLOG ASPART) SLIDING SCALE PCHS SC 01/14/18 08:00 02/13/18 07:59 Thiamine HCl (Vitamin B-1 Tab) 100 mg QAM NG 01/14/18 09:00 02/13/18 08:59 01/14/18 09:50 100 MG Folic Acid (Folvite Tab) 1 mg QAM NG 01/14/18 09:00 02/13/18 08:59 01/14/18 09:50 1 MG Multivitamins (Multivitamin Tab) 1 tab QAM NG 01/14/18 09:00 02/13/18 08:59 01/14/18 09:49 1 TAB Insulin Human Regular 250 units/ Sodium Chloride 252.5 ml @ 0 mls/hr Q24H IV 01/14/18 02:15 02/13/18 02:14 01/14/18 02:31 2.3 MLS/HR Midazolam HCl 250 ml @ 0 mls/hr Q0M PRN IV 01/14/18 02:52 02/13/18 02:51 01/14/18 03:32 4 MLS/HR Propofol (Diprivan Iv Emulsion 100ml Vial) 1 dose UD PRN IV 01/14/18 06:15 01/17/18 06:14 01/14/18 06:24 1 DOSE Potassium Chloride/Dextrose/ Sod Cl 1,000 ml @ 100 mls/hr Q10H IV 01/14/18 07:45 02/13/18 07:44 01/14/18 09:49 100 MLS/HR Potassium/ Phosphorus/Sodium (Phospha 250 Neutral 155-852-130 Mg) 2 tab QID PEG 01/14/18 09:00 02/13/18 08:59 01/14/18 09:49 2 TAB Midazolam HCl (Versed Inj) 4 mg UD PRN IV 01/14/18 08:30 02/13/18 08:29 Fentanyl Citrate (Fentanyl Inj) 50 mcg UD PRN IV 01/14/18 08:30 01/28/18 08:29 Levetiracetam 1000 mg/Dextrose 110 ml @ 440 mls/hr ONE ONCE IV 01/14/18 10:30 01/14/18 10:44 Description This is a 21 electrode EEG with a single channel dedicated to limited EKG. The electrodes were placed in accordance with the International 10-20 system. This EEG was performed in the intensive care unit. There are periodic bursts of high-amplitude generalized spike wave activity followed by generalized suppression of the background rhythm which consists of poorly organized low amplitude alpha and theta frequencies. There is some symmetric frontal beta activity as well. No clinical seizures or myoclonic type movements observed on accompanying video. Interpretation Abnormal EEG suggesting cerebral anoxia although generalized seizure activity could appear similar and cannot be excluded at this time. Clinical Correlation Discussed EEG findings with Dr. Leatha Ocasio. Patient has had observed myoclonic type seizures which may be due to cerebral anoxia. Based on EEG findings, however would recommend treatment with anticonvulsant, obtain repeat EEG in the morning as we are unable to offer continuous EEG monitoring at this time.
[2018-01-14] MEDS ORDERED: LORAZEPAM 2 MG/ML 1 ML VIAL IV PRN (12:00)
--- NOTE | 2018-01-14 13:13 | NEUROLOGY CONSULTATION ---
DATE OF CONSULTATION: 01/14/2018 REASON FOR CONSULTATION: Possible seizure, hypoxic ischemic brain injury. HISTORY OF PRESENT ILLNESS: The patient is a 62-year-old male with a past medical history of rheumatic heart disease affecting mitral and aortic valve with replacement x2 in 2013. He has a remote history of esophageal cancer with prior resection and epiglottis resection which has resulted in multiple episodes of aspiration pneumonitis event. He also has COPD and was a former smoker who was in his usual state of health during the meal, he began to aspirate and collapsed. CPR was started at the home. He received ACLS en route to the Emergency Room requiring intubation. He did have the return of spontaneous circulation en route, however, he was asystolic in the Emergency Room. He received multiple rounds of ACLS, administration of amiodarone followed by an amiodarone drip. He seemed to stabilize, but eventually rearrested. The duration and persistence of hypotension and hypoxemia is unclear. In the Emergency Room, a chest x-ray showed concern for possible aspiration. Pressors were added. The patient has been on propofol as well as midazolam. Overnight, he was noted to have myoclonic jerks in the right arm, then the left arm. EEG performed this morning, which I have discussed with Dr. Serrato, shows an abnormal EEG suggestive of cerebral anoxia although generalized seizure activity could appear similar and cannot be excluded at this time. Dr. Serrato felt there was a burst suppression pattern, but with some sharp waves anteriorly. No clinical seizures or myoclonic movements were observed at the time of the EEG on the accompanying video. In terms of his general evaluation, CT of the head shows subtle basal ganglia diminished attenuation, anoxic injury cannot be excluded. The nursing does note that while the patient was not sedated, he over-breathed the vent and appeared to be in pain, but even when having not received fentanyl or sedation, the patient's pupils had been myotic and he had no cough to suction and no withdrawal. The myoclonic jerks have occurred both on propofol and midazolam. MEDICAL HISTORY: The patient's medical history is as above, additionally reflux, hypertension, hyperlipidemia, hypothyroidism, pneumonia, sepsis, history of aortic valve repair, mitral valve repair, neck surgery. SOCIAL HISTORY: Stopped smoking in 2006. Occasional alcohol with 2-3 beers a day. Tox screen positive for the same. FAMILY HISTORY: Coronary artery disease. Father has a pacemaker. ALLERGIES: PENICILLIN AND SULFA DRUGS WERE MEDICATION ALLERGIES. HOME MEDICATIONS: Prednisone, DuoNeb, warfarin, Lipitor, lisinopril, Advair, Proventil, metoprolol, famotidine, aspirin, Tylenol, levothyroxine. VITAL SIGNS: It appears that his lowest blood pressure was approximately 60/44. His pulse oximetry varied from a low of 75%. His most recent vitals 37.1, 71, 20, 126/49, 96%. LABORATORY DATA: Labs on admission, his white count was 12.8, it is now 20. INR was 2.6, today is 2.7. His blood gas on admission 7.14, 49, and greater than 420. Sodium 132, potassium 4.4, glucose 269, magnesium 5.6. TSH 4.6. Lactic acid 9.6. Stool is positive for occult blood. Urinalysis, greater than 30 white cells, 3+ blood. CURRENT MEDICATIONS: The patient received Keppra 1000 after I saw him and is written for 500 b.i.d. IV, pantoprazole, imipenem, levothyroxine, thiamine, multivitamins, potassium, midazolam, fentanyl, methylprednisolone, insulin, potassium, Atrovent, levalbuterol. PHYSICAL EXAMINATION: GENERAL: On exam, the patient is intubated, unresponsive to deep painful stimulation, not currently overbreathing the vent, although he was sedated. NEUROLOGIC: His pupils are miotic and not reactive. I could not visualize the optic nerves. Doll's eyes were not intact. Corneal reflexes were absent. There is no response to sternal rub, deep painful stimulation in his hands or feet, areflexic. Toes are mute. There are no carotid bruits. IMPRESSION: This patient sustained a hypoxic ischemic injury. He is by report when not sedated still overbreathing the vent, therefore, he does not meet criteria for brain , although his prognostic signs are poor, i.e., poor unreactive pontine pinpoint pupils and no reaction to deep painful stimulation. PLAN: I agree with the Keppra load. It is unclear whether or not this is simply myoclonic jerks post-anoxia versus seizure, I think we have to treat as if seizure. Certainly if the myoclonic jerks persist today, one could give him another 500 of Keppra. I am going to discuss with Dr. Barker the use of imipenem which is an association with seizure. Recommend a followup EEG in the morning. The prognostic signs are not good at present. MTDD
--- NOTE | 2018-01-14 13:23 | Progress Note ---
Internal Med Progress Note Date of Service: January 14, 2018. Provider Documentation: SUBJECTIVE: The patient was seen and examined in ICU in presence of the family members He has complex medical history including valvular heart disease status post mitral valve replacement, history of laryngeal carcinoma status post surgery And other medical condition as mentioned below. He was admitted yesterday following cardiac arrest at home most likely secondary to aspiration and respiratory causes He has been intubated and sedated OBJECTIVE: Vital Signs-as noted below Exam: General-was having jerking movements involving the upper extremities due to examination Eyes-closed ENT-normal Neck-supple Lungs-clear Heart-regular Abdomen-benign, distended, bowel sounds present Extremities-no edema Neuro-sedated on vent Lab data as noted below. 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 Known aspiration risk, hx laryngeal cancer status post surgery/radiation (hx noncompliance w swallow eval recommendations as per records) Vent support Solu-Medrol, nebs RTC for possible COPD exacerbation Started on Imipenem and Vanco Cardiac arrest (VT/PEA) secondary to above. hx rheumatic heart disease status post mechanical AVR/MVR on Coumadin. ROSC post CPR/ACLS intervention IV Amiodarone drip started at the ER. and discontinued later on Appreciate Cardiology input Septic shock secondary to lung infection Received IVF Has been on IV Imipenem ans Vancomycin Lactic Acid improving 9.6>>>>4.6 Encephalopathy secondary to respiratory/cardiac arrest EEG-Can not r/o Seizures Keppra started Appreciate Neurology input Repeat EEG in AM Hyperglycemia, possibly from steroid administration, rule out DM. Check hemoglobin A1c, ISS BG goal 140-180, may need basal insulin to attain goal Monitor BSG SSI DVT prophylaxis, IV heparin while Coumadin on hold if INR less than 2.5 given hx mechanical MVR GI prophylaxis. IV PPI while on MV Patient's critical condition was discussed with the family and the patient's life partner, Ms. Lisa Menjivar. She requests for a DNR status for patient in case of cardiac arrest. Continue with medical management for now. Prognosis is POOR Discussed wit the family members Vital Signs: Date Time Temp Pulse Resp B/P (MAP) Pulse Ox O2 Delivery O2 Flow Rate FiO2 01/14/18 12:00 Room Air 01/14/18 11:30 37.7 71 20 103/42 (62) 98 Mechanical Ventilator 40 01/14/18 09:21 40 01/14/18 09:00 37.1 71 20 126/49 (74) 96 Mechanical Ventilator 40 01/14/18 08:00 40 01/14/18 08:00 36.1 69 22 146/58 (87) 98 Mechanical Ventilator 40 01/14/18 08:00 Mechanical Ventilator 40.0 40 01/14/18 07:42 40 01/14/18 07:00 35.8 61 20 107/41 (63) 98 Mechanical Ventilator 40 01/14/18 06:02 35.3 59 24 148/58 (88) 99 Mechanical Ventilator 01/14/18 05:52 40 01/14/18 04:00 40 01/14/18 04:00 Mechanical Ventilator 40 01/14/18 04:00 34.7 60 21 128/54 (78) 97 Mechanical Ventilator 40.0 01/14/18 03:00 34.4 58 29 126/50 (75) 95 Mechanical Ventilator 01/14/18 02:11 40 01/14/18 02:02 34.1 58 27 127/54 (78) 96 Mechanical Ventilator 01/14/18 01:10 33.7 54 27 133/54 (80) 96 Mechanical Ventilator 01/14/18 00:03 Mechanical Ventilator 40 01/14/18 00:03 40 01/14/18 00:02 33.5 63 31 130/54 (79) 97 Mechanical Ventilator 01/13/18 23:15 40 01/13/18 22:28 33.4 46 20 109/48 91 Mechanical Ventilator 30 01/13/18 22:07 33.4 54 25 129/55 98 01/13/18 22:02 46 24 135/68 100 01/13/18 21:50 30 01/13/18 21:32 45 23 100 01/13/18 21:27 44 23 100 01/13/18 21:22 46 21 01/13/18 21:20 35 01/13/18 21:17 46 23 125/59 01/13/18 21:14 122/62 5/19/18 21:12 45 25 115/50 5/19/18 21:11 114/63 519/18 21:09 105/57 5/18 21:07 45 23 103/57 100 5/18 21:05 46 21 100/55 100 Mechanical Ventilator 100 01/13/18 21:04 100/55 5/18 21:02 45 22 103/45 100 519/18 21:00 90/53 5/18 20:58 179/154 5/18 20:57 46 18 99/43 100 19/18 20:54 90/48 19/18 20:52 47 20 99/43 100 01/13/18 20:51 49 01/13/18 20:51 91/52 01/13/18 20:49 101/56 01/13/18 20:47 59 22 105/55 01/13/18 20:45 91/48 01/13/18 20:43 94/53 01/13/18 20:42 55 21 95/43 01/13/18 20:41 85/51 19/18 20:39 86/58 01/13/18 20:37 49 22 100/65 100 01/13/18 20:34 106/70 5/18 20:32 57 20 76/50 100 01/13/18 20:31 57 21 91/56 100 Mechanical Ventilator 100 01/13/18 20:27 76/47 01/13/18 20:25 59 20 91/54 100 519/18 20:23 84/54 5/18 20:21 88/65 01/13/18 20:20 75 20 100 19/18 20:19 98/69 519/18 20:18 88 01/13/18 20:17 145/81 519/18 20:15 94 20 201/100 87 19/18 20:13 217/113 01/13/18 20:11 216/117 5/18 20:10 92 20 100 519/18 20:09 209/114 5/18 20:07 197/103 519/18 20:05 91 18 20:05 104 4 182/97 90 18 20:03 176/99 5/18 20:01 114/22 01/13/18 20:00 124 55 75 01/13/18 19:59 112/64 01/13/18 19:57 71/16 01/13/18 19:55 80 16 51/34 93 01/13/18 19:55 77 01/13/18 19:53 61/40 01/13/18 19:52 62/44 01/13/18 19:50 73 16 49/33 96 01/13/18 19:46 71/48 01/13/18 19:45 85 16 01/13/18 19:44 100 01/13/18 19:44 77/44 01/13/18 19:42 91 60/44 01/13/18 19:40 100 16 01/13/18 19:39 108 01/13/18 19:38 77/56 01/13/18 19:37 84/61 01/13/18 19:35 187 16 67 01/13/18 19:34 108 84/61 91 Mechanical Ventilator 100 01/13/18 19:29 63 Mechanical Ventilator 01/13/18 19:29 Mechanical Ventilator Lab Results: Results Past 24 Hours Test 01/13/18 17:40 01/13/18 19:36 01/13/18 19:40 01/13/18 20:18 Range/Units Free Thyroxine 1.03 0.80-1.60 ng/dl White Blood Count 12.87 4.8-10.8 K/uL Red Blood Count 4.50 4.7-6.1 M/uL Hemoglobin 13.3 14.0-18.0 g/dL Hematocrit 42.4 42-52 % Mean Corpuscular Volume 94.2 80-100 fL Mean Corpuscular Hemoglobin 29.6 25-34 pg Mean Corpuscular Hemoglobin Concent 31.4 32-36 g/dl Platelet Count 191 130-400 K/uL Mean Platelet Volume 10.3 7.4-10.4 fL RDW Standard Deviation 46.5 36.4-46.3 fL RDW Coefficient of Variation 13.6 11.5-14.5 % Neutrophils % (Manual) 40.6 % Lymphocytes % (Manual) 12.6 % Variant Lymphocytes % (manual) 40.5 % Monocytes % (Manual) 3.6 % Eosinophils % (Manual) 0.9 % Myelocytes % 0.9 % Blast Cells % 0.9 % Neutrophils # (Manual) 5.23 1.4-6.5 K/uL Total Absolute Neutrophils 5.23 1.4-6.5 K/uL Lymphocytes # (Manual) 1.62 1.2-3.4 K/uL Absolute Variant Lymphocytes 5.21 K/uL Total Absolute Lymphocytes 6.83 1.2-3.4 K/uL Monocytes # (Manual) 0.46 0.11-0.59 K/uL Eosinophils # (Manual) 0.12 0-0.5 K/uL Myelocytes # 0.12 0-0 K/uL Blast Cells # 0.12 0-0 K/uL Echinocytes 1+ Prothrombin Time 26.7 9.0-12.0 SECONDS Prothromb Time International Ratio 2.6 0.9-1.1 Activated Partial Thromboplast Time 42.5 21.0-31.0 SECONDS Partial Thromboplastin Ratio 1.6 Venous Blood pH 7.09 7.36-7.41 Venous Blood Partial Pressure CO2 92 38.0-50.0 mmHg Venous Blood Partial Pressure O2 47 mmHg Venous Blood HCO3 27 mmol/L Venous Blood Oxygen Saturation 64.0 % Venous Blood Base Excess -4.3 mEq/L Sodium Level 132 136-145 mmol/L Potassium Level 4.4 3.5-5.1 mmol/L Chloride Level 95 98-107 mmol/L Carbon Dioxide Level 23 21-32 mmol/L Anion Gap 14.0 3-11 mmol/L Blood Urea Nitrogen 10 7-18 mg/dl Creatinine 0.86 0.60-1.40 mg/dl Estimated GFR () 109.2 Estimated GFR (Non- 94.3 BUN/Creatinine Ratio 11.4 10-20 Random Glucose 269 70-99 mg/dl Osmolality 325 280-300 mOsm/kg Lactic Acid Level 9.6 0.4-2.0 mmol/L Calcium Level 7.6 8.5-10.1 mg/dl Magnesium Level 5.6 1.8-2.4 mg/dl Total Bilirubin 0.5 0.2-1 mg/dl Direct Bilirubin 0.2 0-0.2 mg/dl Aspartate Amino Transf (AST/SGOT) 69 15-37 U/L Alanine Aminotransferase (ALT/SGPT) 38 12-78 U/L Alkaline Phosphatase 75 45-117 U/L Total Creatine Kinase 126 39-308 U/L Creatine Kinase MB 1.8 0.5-3.6 ng/ml Creatine Kinase MB Ratio 1.4 0-3.0 Troponin I 0.028 0-0.045 ng/ml Total Protein 5.5 6.4-8.2 gm/dl Albumin 2.5 3.4-5.0 gm/dl Procalcitonin 0.10 0-0.5 ng/ml Thyroid Stimulating Hormone (TSH) 4.600 0.300-4.500 uIu/ml Bedside Blood Gas pH (LAB) 7.10 7.35-7.45 Bedside Blood Gas pCO2 (LAB) 59 35-46 mmHg Bedside Blood Gas pO2 (LAB) 370 80-95 mmHg Bedside Blood Gas HCO3 (LAB) 18 19-24 meq/L Bedside Blood Gas Total CO2 20 24-31 mEq/l Bedside Blood Gas Base Excess (LAB) -11.0 -9-1.8 meq/L Bedside Blood Gas O2 Saturation 100.0 90-95 % Test 01/13/18 20:49 01/13/18 21:33 01/13/18 23:04 01/13/18 23:09 Range/Units Bedside Blood Gas pH (LAB) 7.14 7.19 7.35-7.45 Bedside Blood Gas pCO2 (LAB) 49 30 35-46 mmHg Bedside Blood Gas pO2 (LAB) > 420 57 80-95 mmHg Bedside Blood Gas HCO3 (LAB) 17 12 19-24 meq/L Bedside Blood Gas Total CO2 18 13 24-31 mEq/l Bedside Blood Gas Base Excess (LAB) -13.0 -17.0 -9-1.8 meq/L Bedside Blood Gas O2 Saturation 100.0 89.0 90-95 % Lactic Acid Level 10.1 0.4-2.0 mmol/L Total Triiodothyronine 0.58 0.60-1.81 ng/ml Ethyl Alcohol mg/dL 105.6 0-3 mg/dl Blood Gas Sample Site Art Line Teddy Test NA Oxygen Delivery Device Ventilator Bedside Oxygen Rate (breaths/min) 20 Blood Gas Minute Ventilation 11.3 Bedside FiO2 30 % Blood Gas Tidal Volume 500 Blood Gas PEEP 5 Bedside Glucose (other) 249 70-99 mg/dl Test 01/14/18 01:04 01/14/18 01:28 01/14/18 02:05 01/14/18 02:30 Range/Units White Blood Count 22.97 4.8-10.8 K/uL Red Blood Count 4.74 4.7-6.1 M/uL Hemoglobin 14.2 14.0-18.0 g/dL Hematocrit 43.9 42-52 % Mean Corpuscular Volume 92.6 80-100 fL Mean Corpuscular Hemoglobin 30.0 25-34 pg Mean Corpuscular Hemoglobin Concent 32.3 32-36 g/dl Platelet Count 285 130-400 K/uL Mean Platelet Volume 10.1 7.4-10.4 fL Neutrophils (%) (Auto) 87.8 % Lymphocytes (%) (Auto) 5.5 % Monocytes (%) (Auto) 6.3 % Eosinophils (%) (Auto) 0.0 % Basophils (%) (Auto) 0.1 % Neutrophils # (Auto) 20.17 1.4-6.5 K/uL Lymphocytes # (Auto) 1.26 1.2-3.4 K/uL Monocytes # (Auto) 1.44 0.11-0.59 K/uL Eosinophils # (Auto) 0.01 0-0.5 K/uL Basophils # (Auto) 0.02 0-0.2 K/uL RDW Standard Deviation 47.1 36.4-46.3 fL RDW Coefficient of Variation 13.8 11.5-14.5 % Immature Granulocyte % (Auto) 0.3 % Immature Granulocyte # (Auto) 0.07 0.00-0.02 K/uL Sodium Level 137 136-145 mmol/L Potassium Level 3.1 3.5-5.1 mmol/L Chloride Level 101 98-107 mmol/L Carbon Dioxide Level 16 21-32 mmol/L Anion Gap 20.0 3-11 mmol/L Blood Urea Nitrogen 13 7-18 mg/dl Creatinine 1.23 0.60-1.40 mg/dl Est Creatinine Clear Calc Drug Dose 56.2 ml/min Estimated GFR () 73.5 Estimated GFR (Non- 63.4 BUN/Creatinine Ratio 10.5 10-20 Random Glucose 281 70-99 mg/dl Lactic Acid Level 10.3 0.4-2.0 mmol/L Calcium Level 6.8 8.5-10.1 mg/dl Phosphorus Level 3.8 2.5-4.9 mg/dl Magnesium Level 2.3 1.8-2.4 mg/dl Total Bilirubin 0.7 0.2-1 mg/dl Direct Bilirubin 0.2 0-0.2 mg/dl Aspartate Amino Transf (AST/SGOT) 214 15-37 U/L Alanine Aminotransferase (ALT/SGPT) 88 12-78 U/L Alkaline Phosphatase 181 45-117 U/L Total Protein 6.3 6.4-8.2 gm/dl Albumin 2.6 3.4-5.0 gm/dl Bedside Glucose (other) 289 70-99 mg/dl Blood Gas Sample Site Art Line Bedside Blood Gas pH (LAB) 7.27 7.35-7.45 Bedside Blood Gas pCO2 (LAB) 32 35-46 mmHg Bedside Blood Gas pO2 (LAB) 60 80-95 mmHg Bedside Blood Gas HCO3 (LAB) 15 19-24 meq/L Bedside Blood Gas Total CO2 17 24-31 mEq/l Bedside Blood Gas Base Excess (LAB) -12.0 -9-1.8 meq/L Bedside Blood Gas O2 Saturation 91.0 90-95 % Teddy Test NA Oxygen Delivery Device Ventilator Bedside Oxygen Rate (breaths/min) 20 Blood Gas Minute Ventilation 13 Bedside FiO2 40 % Blood Gas Tidal Volume 500 Blood Gas PEEP 5 Stool Occult Blood POSITIVE NEGATIVE Test 01/14/18 03:38 01/14/18 04:33 01/14/18 05:09 01/14/18 05:49 Range/Units Bedside Glucose (other) 286 284 70-99 mg/dl Blood Gas Sample Site Art Line Bedside Blood Gas pH (LAB) 7.41 7.35-7.45 Bedside Blood Gas pCO2 (LAB) 36 35-46 mmHg Bedside Blood Gas pO2 (LAB) 68 80-95 mmHg Bedside Blood Gas HCO3 (LAB) 23 19-24 meq/L Bedside Blood Gas Total CO2 24 24-31 mEq/l Bedside Blood Gas Base Excess (LAB) -2.0 -9-1.8 meq/L Bedside Blood Gas O2 Saturation 95.0 90-95 % Teddy Test Pass Oxygen Delivery Device Ventilator Bedside Oxygen Rate (breaths/min) 20 Blood Gas Minute Ventilation 9.3 Bedside FiO2 40 % Blood Gas Tidal Volume 500 Blood Gas PEEP 5 White Blood Count 20.43 4.8-10.8 K/uL Red Blood Count 4.43 4.7-6.1 M/uL Hemoglobin 13.2 14.0-18.0 g/dL Hematocrit 40.2 42-52 % Mean Corpuscular Volume 90.7 80-100 fL Mean Corpuscular Hemoglobin 29.8 25-34 pg Mean Corpuscular Hemoglobin Concent 32.8 32-36 g/dl Platelet Count 211 130-400 K/uL Mean Platelet Volume 9.8 7.4-10.4 fL Neutrophils (%) (Auto) 91.9 % Lymphocytes (%) (Auto) 4.8 % Monocytes (%) (Auto) 2.9 % Eosinophils (%) (Auto) 0.0 % Basophils (%) (Auto) 0.0 % Neutrophils # (Auto) 18.77 1.4-6.5 K/uL Lymphocytes # (Auto) 0.98 1.2-3.4 K/uL Monocytes # (Auto) 0.60 0.11-0.59 K/uL Eosinophils # (Auto) 0.00 0-0.5 K/uL Basophils # (Auto) 0.00 0-0.2 K/uL RDW Standard Deviation 46.3 36.4-46.3 fL RDW Coefficient of Variation 14.0 11.5-14.5 % Immature Granulocyte % (Auto) 0.4 % Immature Granulocyte # (Auto) 0.08 0.00-0.02 K/uL Prothrombin Time 28.1 9.0-12.0 SECONDS Prothromb Time International Ratio 2.7 0.9-1.1 Activated Partial Thromboplast Time 33.7 21.0-31.0 SECONDS Partial Thromboplastin Ratio 1.3 Sodium Level 140 136-145 mmol/L Potassium Level 3.4 3.5-5.1 mmol/L Chloride Level 105 98-107 mmol/L Carbon Dioxide Level 26 21-32 mmol/L Anion Gap 9.0 3-11 mmol/L Blood Urea Nitrogen 17 7-18 mg/dl Creatinine 1.36 0.60-1.40 mg/dl Est Creatinine Clear Calc Drug Dose 49.8 ml/min Estimated GFR () 65.1 Estimated GFR (Non- 56.2 BUN/Creatinine Ratio 12.8 10-20 Random Glucose 248 70-99 mg/dl Lactic Acid Level 4.6 0.4-2.0 mmol/L Calcium Level 6.8 8.5-10.1 mg/dl Phosphorus Level 1.0 2.5-4.9 mg/dl Magnesium Level 1.9 1.8-2.4 mg/dl Total Bilirubin 0.8 0.2-1 mg/dl Direct Bilirubin 0.2 0-0.2 mg/dl Aspartate Amino Transf (AST/SGOT) 183 15-37 U/L Alanine Aminotransferase (ALT/SGPT) 87 12-78 U/L Alkaline Phosphatase 125 45-117 U/L Total Creatine Kinase 939 39-308 U/L Creatine Kinase MB 54.3 0.5-3.6 ng/ml Creatine Kinase MB Ratio 5.8 0-3.0 Troponin I 6.790 0-0.045 ng/ml Total Protein 5.7 6.4-8.2 gm/dl Albumin 2.5 3.4-5.0 gm/dl Test 01/14/18 06:00 01/14/18 06:30 01/14/18 06:46 01/14/18 08:16 Range/Units Bedside Glucose (other) 253 225 185 70-99 mg/dl Urine Color YELLOW Urine Appearance TURBID CLEAR Urine pH 5.5 4.5-7.5 Urine Specific [place] 1.015 1.000-1.030 Urine Protein 3+ NEG Urine Glucose (UA) 1+ NEG Urine Ketones NEG NEG Urine Occult Blood 3+ NEG Urine Nitrite NEG NEG Urine Bilirubin NEG NEG Urine Urobilinogen NEG NEG Urine Leukocyte Esterase NEG NEG Urine WBC (Auto) >30 0-5 /hpf Urine RBC (Auto) 10-30 0-4 /hpf Urine Hyaline Casts (Auto) 5-10 0-5 /lpf Urine Epithelial Cells (Auto) 20-30 0-5 /lpf Urine Bacteria (Auto) NEG NEG Urine Pathogenic Casts 0-3 GRANULAR CASTS 0 /lpf Urine Yeast (Auto) NONE PRSENT Urine Opiates Screen NEG NEG Urine Methadone, Qualitative NEG NEG Urine Barbiturates NEG NEG Urine Phencyclidine (PCP) Level NEG NEG Ur Amphetamine/Methamphetamine NEG NEG MDMA (Ecstasy) Screen NEG NEG Urine Benzodiazepines Screen POS NEG Urine Cocaine Metabolite NEG NEG Urine Marijuana (THC) NEG NEG Test 01/14/18 09:22 01/14/18 10:21 01/14/18 10:32 01/14/18 11:02 Range/Units Bedside Glucose (other) 136 100 120 70-99 mg/dl Random Vancomycin Level 16.7 mcg/ml Microbiology Results 01/13/18 Blood Culture, Received Pending 01/13/18 Blood Culture, Received Pending 01/14/18 MRSA DNA Surveillance Screen - Final, Complete Specimen Negative for MRSA by DNA Probe 01/14/18 Urine Culture, Received Pending
[2018-01-14] MEDS ORDERED: CALCIUM CHLORIDE 10% 10 ML SYR IV ONE (17:07)
[2018-01-14] MEDS ORDERED: SODIUM CHLORIDE 0.9% 10ML FLUSH IV ONE (17:07)
[2018-01-14] MEDS ORDERED: MAGNESIUM SULFATE 1GM / D5W 1 GM BAG IV ONE (17:07)
[2018-01-14] MEDS ORDERED: SODIUM BICARB 8.4% INJ 50 MEQ/50 ML SYR IV ONE (17:07)
[2018-01-14] MEDS ORDERED: INSULIN GLARGINE SOLOSTAR 100 UNITS/ML 3 ML PEN SC SCH (21:00)
[2018-01-14] MEDS ORDERED: LEVETIRACETAM IV 500 MG in DEXTROSE 5% 100ML 100 ML IV SCH (21:00)
[2018-01-15 07:06] LABS: HEMOGLOBIN A1C 5.3 % (4.5-5.6)
[2018-01-15] MEDS ORDERED: VANCOMYCIN TROUGH ONE (09:30)
== END 2018-01-14 17:08 | disposition expired | DRG 871 ==
LOC: EDBD 19:25 → C.EDA 19:26 → C.MSICU 21:27 → ENRESERV 21:34
PROVIDERS: ADMIT Internal Medicine; ATTEND Internal Medicine
PROC: 5A1935Z Respiratory Ventilation, Less than 24 Consecutive Hours (ICD-10-PCS; principal; 2018-01-13)
PROC: 5A2204Z Restoration of Cardiac Rhythm, Single (ICD-10-PCS; principal; 2018-01-13)
PROC: 5A02115 Assistance with Cardiac Output using Pulsatile Compression, Intermittent (ICD-10-PCS; principal; 2018-01-13)
PROC: 06HM33Z Insertion of Infusion Device into Right Femoral Vein, Percutaneous Approach (ICD-10-PCS; 2018-01-13)
PROC: 04HY32Z Insertion of Monitoring Device into Lower Artery, Percutaneous Approach (ICD-10-PCS; 2018-01-13)
DX: A41.9 Sepsis, unspecified organism (principal); J69.0 Pneumonitis due to inhalation of food and vomit; R65.21 Severe sepsis with septic shock; J96.01 Acute respiratory failure with hypoxia; J96.02 Acute respiratory failure with hypercapnia; G93.49 Other encephalopathy; G93.1 Anoxic brain damage, not elsewhere classified; I67.82 Cerebral ischemia; Z51.5 Encounter for palliative care; J44.0 Chronic obstructive pulmonary disease with (acute) lower respiratory infection; I47.2 Ventricular tachycardia; E87.2 Acidosis; I46.8 Cardiac arrest due to other underlying condition; D64.9 Anemia, unspecified; R56.9 Unspecified convulsions; R73.9 Hyperglycemia, unspecified; J38.01 Paralysis of vocal cords and larynx, unilateral; I10 Essential (primary) hypertension; E03.9 Hypothyroidism, unspecified; E78.5 Hyperlipidemia, unspecified; J30.9 Allergic rhinitis, unspecified; K21.9 Gastro-esophageal reflux disease without esophagitis; I73.9 Peripheral vascular disease, unspecified; Z51.81 Encounter for therapeutic drug level monitoring; Z79.899 Other long term (current) drug therapy; Z79.01 Long term (current) use of anticoagulants; Z79.82 Long term (current) use of aspirin; Z91.19 Patient's noncompliance with other medical treatment and regimen; Z66 Do not resuscitate; Z85.21 Personal history of malignant neoplasm of larynx; Z86.79 Personal history of other diseases of the circulatory system; Z95.2 Presence of prosthetic heart valve; Z87.891 Personal history of nicotine dependence; Z88.0 Allergy status to penicillin; Z88.2 Allergy status to sulfonamides; Z82.49 Family history of ischemic heart disease and other diseases of the circulatory system; Z83.3 Family history of diabetes mellitus; Z92.3 Personal history of irradiation